=== PATIENT | male | born 1965 | race African-American/Black ===

== ENCOUNTER 2017-05-13 12:21 | Emergency (ER) | payer OTHER ==
[2017-05-13] MEDS ORDERED: SODIUM CHLORIDE 0.9% 500 ML IV STA (12:27)
--- NOTE | 2017-05-13 12:35 | ED ---
General Adult HPI - General Stated complaint: CVA Time Seen by Provider: 05/13/17 12:21 Source: RN notes reviewed - History of Present Illness Initial comments: This is a 51-year-old male who called EMS because about 45 minutes prior to arrival he started having slurred speech and weakness on the right side of his body. Patient has diabetes and high blood pressure. Was difficult to understand the patient because of slurred speech. But he denied any pain at this time. Because the patient was in the CT room no further history was obtained at this time. patient also states he has a pacemaker and is on Plavix. - Related Data Home Medications Medication Instructions Recorded Confirmed Carvedilol [Coreg] 12.5 mg PO BID 05/13/17 05/13/17 Clopidogrel [Plavix] 75 mg PO DAILY 05/13/17 05/13/17 Ergocalciferol (Vitamin D2) 50,000 unit PO Q28D 05/13/17 05/13/17 [Vitamin D2] Furosemide [Lasix] 40 mg PO DAILY 05/13/17 05/13/17 Potassium Chloride [K-Tab ER] 10 meq PO DAILY 05/13/17 05/13/17 sulfaSALAzine [Azulfidine] 1,500 mg PO BID 05/13/17 05/13/17 Allergies Allergy/AdvReac Type Severity Reaction Status Date / Time No Known Allergies Allergy Verified 06/29/16 18:54 Review of Systems ROS Statement: Those systems with pertinent positive or pertinent negative responses have been documented in the HPI. ROS Other: All systems not noted in ROS Statement are negative. Past Medical History Past Medical History: Atrial Fibrillation, Diabetes Mellitus, Hypertension, Osteoarthritis (OA), Rheumatoid Arthritis (RA) Additional Past Medical History / Comment(s): neuropathy History of Any Multi-Drug Resistant Organisms: None Reported Additional Past Surgical History / Comment(s): defibrilator Past Anesthesia/Blood Transfusion Reactions: No Reported Reaction Past Psychological History: Depression Smoking Status: Current every day smoker Past Alcohol Use History: None Reported Past Drug Use History: None Reported - Past Family History Mother History Unknown: Yes Family Medical History: Diabetes Mellitus General Exam - General Exam Comments Initial Comments: GENERAL: Patient is well-developed and well-nourished. Patient is nontoxic and well- hydrated and is in mild distress. ENT: Neck is soft and supple. No significant lymphadenopathy is noted. Oropharynx is clear. Moist mucous membranes. Neck has full range of motion without eliciting any pain. There is no thyroid enlargement and no masses were felt. EYES: The sclera were anicteric and conjunctiva were pink and moist. Patient would not follow commands for extraocular movements was unable to assess his eye movements. After a little while to reattempt his extraocular motion in it appeared that the right eye was unable to come past the midline at the left eye appeared to have full range of motion. PULMONARY: Unlabored respirations. Good breath sounds bilaterally. No audible rales rhonchi or wheezing was noted. CARDIOVASCULAR: There is a regular rate and rhythm without any murmurs gallops or rubs. Femoral pulses are equal bilaterally ABDOMEN: Soft and nontender with normal bowel sounds. SKIN: Skin is clear with no lesions or rashes and otherwise unremarkable. NEUROLOGIC: Patient is alert and oriented x3. patient has complete paralysis of the right arm and leg. Patient's speech is completely slurred MUSCULOSKELETAL: Normal extremities with adequate strength and full range of motion. No lower extremity swelling or edema. No calf tenderness. LYMPHATICS: No significant lymphadenopathy is noted PSYCHIATRIC: Unable to assess at this time Course Vital Signs 05/13/17 05/13/17 05/13/17 12:43 12:48 13:00 Temperature 98.0 F 98.0 F 98.0 F Pulse Rate 108 H 107 H 108 H Respiratory 18 18 18 Rate Blood Pressure 182/113 157/102 152/103 O2 Sat by Pulse 96 98 96 Oximetry 05/13/17 05/13/17 05/13/17 13:10 13:20 13:30 Temperature 98.0 F 98.9 F 98.8 F Pulse Rate 106 H 104 H 104 H Respiratory 18 18 18 Rate Blood Pressure 160/105 154/98 154/98 O2 Sat by Pulse 96 96 96 Oximetry Medical Decision Making - Medical Decision Making EKG shows 107 bpm NH interval 142 QRS is 88 QT interval 370 QTC is 493 per patient's EKG shows inverted T waves in leads V4 V5 and V6 as well as [address] and CTA showed a left middle cerebral artery occlusion. I spoke with the neuro interventional some he wanted the patient to give TPA after he spoke with the patient and he wanted the patient transferred to [facility] emergency department. I spoke with Dr. Gilliam [facility] and she accepted patient patient will be transferred. We gave the bolus of TPA and started a drip in the emergency department. I spoke with the radiologist looked at the CAT scan of the chest specifically to see if there is any dissection in the carotids he did not see any signs of dissection and aortic arch or the carotids. - Lab Data Result diagrams: 05/13/17 12:50 05/13/17 12:50 Lab Results 05/13/17 05/13/17 05/13/17 Range/Units 12:50 12:50 12:50 WBC 5.9 (3.8-10.6) k/uL RBC 4.34 (4.30-5.90) m/uL Hgb 12.2 L (13.0-17.5) gm/dL Hct 38.9 L (39.0-53.0) % MCV 89.5 (80.0-100.0) fL MCH 28.2 (25.0-35.0) pg MCHC 31.5 (31.0-37.0) g/dL RDW 16.4 H (11.5-15.5) % Plt Count 284 (150-450) k/uL PT (9.0-12.0) sec INR (<1.2) APTT (22.0-30.0) sec Sodium 139 (137-145) mmol/L Potassium 3.7 (3.5-5.1) mmol/L Chloride 108 H (98-107) mmol/L Carbon Dioxide 22 (22-30) mmol/L Anion Gap 9 mmol/L BUN 10 (9-20) mg/dL Creatinine 0.83 (0.66-1.25) mg/dL Est GFR (MDRD) Af Amer >60 (>60 ml/min/1.73 sqM) Est GFR (MDRD) Non-Af >60 (>60 ml/min/1.73 sqM) Glucose 132 H (74-99) mg/dL POC Glucose (mg/dL) (75-99) mg/dL POC Glu Electrical Logging Engineer ID Calcium 8.7 (8.4-10.2) mg/dL Total Bilirubin 0.4 (0.2-1.3) mg/dL AST 50 (17-59) U/L ALT 48 (21-72) U/L Alkaline Phosphatase 88 (38-126) U/L Total Creatine Kinase 391 H (55-170) U/L CK-MB (CK-2) 1.7 (0.0-2.4) ng/mL CK-MB (CK-2) Rel Index 0.4 Troponin I 1.020 H* (0.000-0.034) ng/mL Total Protein 6.1 L (6.3-8.2) g/dL Albumin 3.2 L (3.5-5.0) g/dL 05/13/17 05/13/17 Range/Units 12:50 12:58 WBC (3.8-10.6) k/uL RBC (4.30-5.90) m/uL Hgb (13.0-17.5) gm/dL Hct (39.0-53.0) % MCV (80.0-100.0) fL MCH (25.0-35.0) pg MCHC (31.0-37.0) g/dL RDW (11.5-15.5) % Plt Count (150-450) k/uL PT 12.9 H (9.0-12.0) sec INR 1.3 H (<1.2) APTT 21.5 L (22.0-30.0) sec Sodium (137-145) mmol/L Potassium (3.5-5.1) mmol/L Chloride (98-107) mmol/L Carbon Dioxide (22-30) mmol/L Anion Gap mmol/L BUN (9-20) mg/dL Creatinine (0.66-1.25) mg/dL Est GFR (MDRD) Af Amer (>60 ml/min/1.73 sqM) Est GFR (MDRD) Non-Af (>60 ml/min/1.73 sqM) Glucose (74-99) mg/dL POC Glucose (mg/dL) 142 H (75-99) mg/dL POC Glu Electrical Logging Engineer ID Bowling, Sylvia Calcium (8.4-10.2) mg/dL Total Bilirubin (0.2-1.3) mg/dL AST (17-59) U/L ALT (21-72) U/L Alkaline Phosphatase (38-126) U/L Total Creatine Kinase (55-170) U/L CK-MB (CK-2) (0.0-2.4) ng/mL CK-MB (CK-2) Rel Index Troponin I (0.000-0.034) ng/mL Total Protein (6.3-8.2) g/dL Albumin (3.5-5.0) g/dL Critical Care Time Critical Care Time: Yes Total Critical Care Time: 40 Disposition Clinical Impression: Cerebrovascular accident, Received intravenous tissue plasminogen activator ( tPA) in emergency department Disposition: OTHER INSTITUTION NOT DEFINED Referrals: Nonstaff,Physician [Primary Care Provider] - 1-2 days Time of Disposition: 13:21 - Out of Hospital Transfer - Req. Specs Out of Hospital Transfer - Requested Specifics: Other Emergency Center ([facility] )
[2017-05-13 12:54] VITALS: RESP 18
--- NOTE | 2017-05-13 12:55 | CT ---
EXAMINATION TYPE: CT brain wo con DATE OF EXAM: 05/13/2017 COMPARISON: NONE HISTORY: Blurred vision. Possible stroke. Slurred speech CT DLP: 1040 mGycm Automated exposure control for dose reduction was used. FINDINGS: Helical acquisition through the brain. There is no hemorrhage or hydrocephalus. Brain density is normal. Calvarium is intact. Hyperostosis f rom talus interna changes somewhat asymmetric towards the right. No significant inflammatory change w ithin the paranasal sinuses, mild inflammatory change present in the left mastoids. IMPRESSION: NO ACUTE BRAIN ABNORMALITY. CORRELATE FOR LEFT MASTOIDITIS.
[2017-05-13] MEDS ORDERED: tPA (Alteplase) PER PHARMACY 1 EACH MISC MISCELLANE PRN (13:00)
[2017-05-13 13:01] LABS: Glucose,Whole Blood 142 mg/dL (75-99)
[2017-05-13] MEDS ORDERED: ALTEPLASE BOLUS 9 MG in EMPTY SYRINGE 1 SYR IV STA (13:01)
[2017-05-13] MEDS ORDERED: ALTEPLASE 81 MG in EMPTY BAG 1 BAG IV STA (13:01)
[2017-05-13 13:13] LABS: ALT 48 U/L (21-72); AST 50 U/L (17-59); Alkaline Phosphatase 88 U/L (38-126); Anion Gap 9 mmol/L; Blood Urea Nitrogen 10 mg/dL (9-20); Calcium 8.7 mg/dL (8.4-10.2); Carbon Dioxide 22 mmol/L (22-30); Chloride 108 mmol/L (98-107); Glucose 132 mg/dL (74-99); Non-African American GFR(MDRD) >60 (>60 ml/min/1.73 sqM); Potassium 3.7 mmol/L (3.5-5.1); Sodium 139 mmol/L (137-145); Total Bilirubin 0.4 mg/dL (0.2-1.3); Total Protein 6.1 g/dL (6.3-8.2)
[2017-05-13 13:16] LABS: INR 1.3 (<1.2); Prothrombin Time 12.9 sec (9.0-12.0)
--- NOTE | 2017-05-13 13:25 | CT ---
EXAMINATION TYPE: CT angio head neck DATE OF EXAM: 05/13/2017 HISTORY: Slurred speech COMPARISON: NONE CT DLP: 455.5 mGycm. Automated Exposure Control for Dose Reduction was Utilized. TECHNIQUE: CTA scan of the neck is performed with IV Contrast, patient injected with 65 mL of Omnipa que 350, axial images are obtained, coronal and sagittal reformatted images are reviewed. Three-D rec onstructed images are created on an independent workstation and reviewed. FINDINGS: Carotid/Vascular Structures: The transverse aorta, innominate artery, left and right subclavian arter ies, left and right common carotid arteries, left and right vertebral arteries are patent, there is n o evident filling defect or significant stenosis. The middle cerebral artery on the left shows a trun cated appearance however there are extensive suspected collateral arteries reconstituting the more di stal middle cerebral artery on the left. Other: Diffuse scalp skin thickening is present, there is inflammatory change present within the maxi llary sinus, ethmoid air cells. Suspect a right pleural effusion, emphysematous changes are present w ithin the lungs. Mediastinal adenopathy is present. IMPRESSION: There is a truncated appearance of the middle cerebral artery on the left however there i s collateral flow, this may be indicative of a chronic occlusion rather than acute occlusion, correla te. Pleural effusion, mediastinal adenopathy.
[2017-05-13 13:27] LABS: Partial Thromboplastin Time 21.5 sec (22.0-30.0)
[2017-05-13 13:34] LABS: Anisocytosis Slight; Basophils % (A) 1 %; CH 27.7; CHCM 31.3; Eosinophils # (A) 0.2 k/uL (0-0.7); Eosinophils % (A) 3 %; HCT 38.9 % (39.0-53.0); HDW 3.23; HGB 12.2 gm/dL (13.0-17.5); Hypochromasia Moderate; Luc # (Auto) 0.13; Luc % (Auto) 2; Lymphocytes # (A) 1.4 k/uL (1.0-4.8); Lymphocytes % (A) 24 %; MCH 28.2 pg (25.0-35.0); MCHC 31.5 g/dL (31.0-37.0); MCV 89.5 fL (80.0-100.0); Mean Platelet Volume 7.8; Monocytes # (A) 0.6 k/uL (0-1.0); Monocytes % (A) 9 %; Neutrophils # (A) 3.6 k/uL (1.3-7.7); Neutrophils % (A) 61 %; RBC 4.34 m/uL (4.30-5.90); RDW 16.4 % (11.5-15.5); WBC 5.9 k/uL (3.8-10.6); WBC (Perox) 6.23
[2017-05-13 13:36] VITALS: TEMP 98.8
[2017-05-13 13:38] LABS: Creatine Kinase MB 1.7 ng/mL (0.0-2.4)
[2017-05-13 13:43] LABS: Troponin I 1.02 ng/mL (0.000-0.034)
--- NOTE | 2017-05-13 13:43 | XR ---
EXAMINATION TYPE: XR chest 1V portable DATE OF EXAM: 05/13/2017 COMPARISON: 06/29/2016 INDICATION: Pain chest pain shortness of breath TECHNIQUE: Single frontal view of the chest is obtained. FINDINGS: The heart size is enlarged. This is increased in size from prior study as not entirely accounted for by the portable apparatus technique. Mediastinum is likewise prominent. Significant rotation to acco unt for the mediastinum size is not evident.. The pulmonary vasculature is normal. The lungs are clear. Electronic device overlies left chest. Case was discussed with Dr. Altman by Dr. Ortiz at the time of preliminary interpretation. IMPRESSION: 1. Cardiomegaly and prominent mediastinum, an interval change from the comparison of 06/29/2016.
[2017-05-13 13:54] LABS: Polychromasia Present
[2017-05-13 13:57] VITALS: BP 170/90; PULSE 108
== END 2017-05-13 13:56 | disposition other institution (70) ==
LOC: EC 12:21
DX: I63.9 Cerebral infarction, unspecified (principal); I48.91 Unspecified atrial fibrillation; I10 Essential (primary) hypertension; Z79.01 Long term (current) use of anticoagulants; Z79.899 Other long term (current) drug therapy
CPT/HCPCS: 36415; 93005; 80053; 82550; 82553; 84484; 85025; 85610; 85730; 71010; 70496; 70450; 70498; 99291; 96365; J2997; Q9967

== ENCOUNTER 2017-07-27 09:09 | Observation (INO) | payer OTHER ==
--- NOTE | 2017-07-27 10:35 | ED ---
GI Bleed HPI - General Chief complaint: GI Bleed Stated complaint: Dark Stool Time Seen by Provider: 07/27/17 09:15 Source: patient, RN notes reviewed Mode of arrival: ambulatory Limitations: no limitations - History of Present Illness Initial comments: This a 52-year-old male presents emergency Department chief complaint of dark dark brown to black stools. 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 Patient has no abdominal pain or any complaints. Denies nausea, vomiting diarrhea constipation. Patient states it slightly less black today but still is Dr. than usual. Patient denies any dysuria, hematuria. Patient denies fever, chills, headache, dizziness. Patient states that he had a stroke proximal January 2 months ago and has a history of A. fib. - Related Data Home Medications Medication Instructions Recorded Confirmed Carvedilol [Coreg] 12.5 mg PO BID 05/13/17 07/27/17 Furosemide [Lasix] 40 mg PO BID@0800,1400 05/13/17 07/27/17 Potassium Chloride [K-Tab ER] 10 meq PO DAILY 05/13/17 07/27/17 sulfaSALAzine [Azulfidine] 1,500 mg PO DAILY 05/13/17 07/27/17 Aspirin 81 mg PO DAILY 07/27/17 07/27/17 Atorvastatin [Lipitor] 40 mg PO DAILY 07/27/17 07/27/17 Gabapentin [Neurontin] 600 mg PO QID 07/27/17 07/27/17 Insuln Asp Prt/Insulin Aspart 40 unit SQ AC-BID@0800,1800 07/27/17 07/27/17 [NovoLOG MIX 70-30 VIAL] Leflunomide [Arava] 20 mg PO DAILY 07/27/17 07/27/17 Lisinopril 40 mg PO DAILY 07/27/17 07/27/17 Rivaroxaban [Xarelto] 20 mg PO HS 07/27/17 07/27/17 Allergies Allergy/AdvReac Type Severity Reaction Status Date / Time No Known Allergies Allergy Verified 07/27/17 09:36 Review of Systems ROS Statement: Those systems with pertinent positive or pertinent negative responses have been documented in the HPI. ROS Other: All systems not noted in ROS Statement are negative. Past Medical History Past Medical History: Atrial Fibrillation, CVA/TIA, Diabetes Mellitus, Hypertension, Osteoarthritis (OA), Rheumatoid Arthritis (RA) Additional Past Medical History / Comment(s): neuropathy History of Any Multi-Drug Resistant Organisms: None Reported Additional Past Surgical History / Comment(s): defibrilator Past Anesthesia/Blood Transfusion Reactions: No Reported Reaction Past Psychological History: Depression Smoking Status: Current some day smoker Past Alcohol Use History: None Reported Past Drug Use History: None Reported - Past Family History Mother History Unknown: Yes Family Medical History: Diabetes Mellitus General Exam Limitations: no limitations General appearance: alert, in no apparent distress Neck exam: Present: normal inspection, full ROM. Absent: tenderness, meningismus, lymphadenopathy Respiratory exam: Present: normal lung sounds bilaterally. Absent: respiratory distress, wheezes, rales, rhonchi, stridor Cardiovascular Exam: Present: regular rate, normal rhythm, normal heart sounds. Absent: systolic murmur, diastolic murmur, rubs, gallop, clicks GI/Abdominal exam: Present: soft, normal bowel sounds. Absent: distended, tenderness, guarding, rebound, rigid Rectal exam: Present: normal inspection, normal rectal tone, heme (+) stool, black stool Back exam: Absent: CVA tenderness (R), CVA tenderness (L) Course Vital Signs 07/27/17 09:11 Temperature 98.7 F Pulse Rate 87 Respiratory 18 Rate Blood Pressure 133/84 O2 Sat by Pulse 96 Oximetry Medical Decision Making - Lab Data Result diagrams: 07/27/17 10:10 07/27/17 10:10 Lab Results 07/27/17 07/27/17 07/27/17 Range/Units 09:44 10:10 10:10 WBC 5.0 (3.8-10.6) k/uL RBC 4.46 (4.30-5.90) m/uL Hgb 11.8 L (13.0-17.5) gm/dL Hct 38.9 L (39.0-53.0) % MCV 87.2 (80.0-100.0) fL MCH 26.5 (25.0-35.0) pg MCHC 30.4 L (31.0-37.0) g/dL RDW 16.9 H (11.5-15.5) % Plt Count 186 (150-450) k/uL Neutrophils % 47 % Lymphocytes % 36 % Monocytes % 9 % Eosinophils % 6 % Basophils % 1 % Neutrophils # 2.4 (1.3-7.7) k/uL Lymphocytes # 1.8 (1.0-4.8) k/uL Monocytes # 0.4 (0-1.0) k/uL Eosinophils # 0.3 (0-0.7) k/uL Basophils # 0.0 (0-0.2) k/uL Hypochromasia Moderate Anisocytosis Slight PT (9.0-12.0) sec INR (<1.2) APTT (22.0-30.0) sec Sodium 143 (137-145) mmol/L Potassium 3.7 (3.5-5.1) mmol/L Chloride 110 H (98-107) mmol/L Carbon Dioxide 24 (22-30) mmol/L Anion Gap 9 mmol/L BUN 15 (9-20) mg/dL Creatinine 0.82 (0.66-1.25) mg/dL Est GFR (MDRD) Af Amer >60 (>60 ml/min/1.73 sqM) Est GFR (MDRD) Non-Af >60 (>60 ml/min/1.73 sqM) Glucose 117 H (74-99) mg/dL Calcium 9.7 (8.4-10.2) mg/dL Magnesium 1.7 (1.6-2.3) mg/dL Total Bilirubin 0.4 (0.2-1.3) mg/dL AST 25 (17-59) U/L ALT 19 L (21-72) U/L Alkaline Phosphatase 73 (38-126) U/L Total Protein 7.7 (6.3-8.2) g/dL Albumin 4.2 (3.5-5.0) g/dL Urine Color Urine Appearance (Clear) Urine pH (5.0-8.0) Ur Specific Burton (1.001-1.035) Urine Protein (Negative) Urine Glucose (UA) (Negative) Urine Ketones (Negative) Urine Blood (Negative) Urine Nitrite (Negative) Urine Bilirubin (Negative) Urine Urobilinogen (<2.0) mg/dL Ur Leukocyte Esterase (Negative) Urine WBC (0-5) /hpf Ur Squamous Epith Cells (0-4) /hpf Urine Mucus (None) /hpf Stool Occult Blood Positive (Negative) 07/27/17 07/27/17 Range/Units 10:10 10:24 WBC (3.8-10.6) k/uL RBC (4.30-5.90) m/uL Hgb (13.0-17.5) gm/dL Hct (39.0-53.0) % MCV (80.0-100.0) fL MCH (25.0-35.0) pg MCHC (31.0-37.0) g/dL RDW (11.5-15.5) % Plt Count (150-450) k/uL Neutrophils % % Lymphocytes % % Monocytes % % Eosinophils % % Basophils % % Neutrophils # (1.3-7.7) k/uL Lymphocytes # (1.0-4.8) k/uL Monocytes # (0-1.0) k/uL Eosinophils # (0-0.7) k/uL Basophils # (0-0.2) k/uL Hypochromasia Anisocytosis PT 11.2 (9.0-12.0) sec INR 1.1 (<1.2) APTT 23.3 (22.0-30.0) sec Sodium (137-145) mmol/L Potassium (3.5-5.1) mmol/L Chloride (98-107) mmol/L Carbon Dioxide (22-30) mmol/L Anion Gap mmol/L BUN (9-20) mg/dL Creatinine (0.66-1.25) mg/dL Est GFR (MDRD) Af Amer (>60 ml/min/1.73 sqM) Est GFR (MDRD) Non-Af (>60 ml/min/1.73 sqM) Glucose (74-99) mg/dL Calcium (8.4-10.2) mg/dL Magnesium (1.6-2.3) mg/dL Total Bilirubin (0.2-1.3) mg/dL AST (17-59) U/L ALT (21-72) U/L Alkaline Phosphatase (38-126) U/L Total Protein (6.3-8.2) g/dL Albumin (3.5-5.0) g/dL Urine Color Dark Yellow Urine Appearance Cloudy (Clear) Urine pH 6.0 (5.0-8.0) Ur Specific Burton 1.033 (1.001-1.035) Urine Protein 1+ H (Negative) Urine Glucose (UA) Negative (Negative) Urine Ketones Negative (Negative) Urine Blood Negative (Negative) Urine Nitrite Negative (Negative) Urine Bilirubin 1+ H (Negative) Urine Urobilinogen 3.0 (<2.0) mg/dL Ur Leukocyte Esterase Negative (Negative) Urine WBC 2 (0-5) /hpf Ur Squamous Epith Cells 7 H (0-4) /hpf Urine Mucus Moderate H (None) /hpf Stool Occult Blood (Negative) Disposition Clinical Impression: Melena, GI bleed Disposition: ADMITTED IP TO THIS [facility] Condition: Stable Referrals: Nonstaff,Physician [Primary Care Provider] - 1-2 days
[2017-07-27 10:37] LABS: Anisocytosis Slight; Basophils % (A) 1 %; CH 26.5; CHCM 30.5; Eosinophils # (A) 0.3 k/uL (0-0.7); Eosinophils % (A) 6 %; HCT 38.9 % (39.0-53.0); HDW 3.05; HGB 11.8 gm/dL (13.0-17.5); Hypochromasia Moderate; Luc % (Auto) 2; Lymphocytes # (A) 1.8 k/uL (1.0-4.8); Lymphocytes % (A) 36 %; MCH 26.5 pg (25.0-35.0); MCHC 30.4 g/dL (31.0-37.0); MCV 87.2 fL (80.0-100.0); Monocytes # (A) 0.4 k/uL (0-1.0); Monocytes % (A) 9 %; Neutrophils # (A) 2.4 k/uL (1.3-7.7); Neutrophils % (A) 47 %; RBC 4.46 m/uL (4.30-5.90); RDW 16.9 % (11.5-15.5); WBC (Perox) 5.09
[2017-07-27 10:38] LABS: ALT 19 U/L (21-72); AST 25 U/L (17-59); Alkaline Phosphatase 73 U/L (38-126); Anion Gap 9 mmol/L; Blood Urea Nitrogen 15 mg/dL (9-20); Calcium 9.7 mg/dL (8.4-10.2); Carbon Dioxide 24 mmol/L (22-30); Chloride 110 mmol/L (98-107); Glucose 117 mg/dL (74-99); INR 1.1 (<1.2); Magnesium 1.7 mg/dL (1.6-2.3); Non-African American GFR(MDRD) >60 (>60 ml/min/1.73 sqM); Potassium 3.7 mmol/L (3.5-5.1); Sodium 143 mmol/L (137-145); Total Bilirubin 0.4 mg/dL (0.2-1.3); Total Protein 7.7 g/dL (6.3-8.2)
[2017-07-27 10:39] LABS: Partial Thromboplastin Time 23.3 sec (22.0-30.0); Prothrombin Time 11.2 sec (9.0-12.0)
[2017-07-27 10:40] LABS: Appearance,Urine Cloudy (Clear); Bilirubin,Urine 1+ (Negative); Glucose,Urine (UA) Negative (Negative); Ketones,Urine Negative (Negative); Leukocyte Esterase,Urine Negative (Negative); Mucus,Urine Moderate /hpf; Nitrite,Urine Negative (Negative); Particle Count 9086; Protein,Urine 1+ (Negative); Specific Gravity,Urine 1.033 (1.001-1.035); Squamous Epithelial Cell,Urine 7 /hpf (0-4); UA Billing (MACRO vs. MICRO) MICRO; WBC,Urine 2 /hpf (0-5)
[2017-07-27 10:54] LABS: Creatine Kinase 373 U/L (55-170)
[2017-07-27] MEDS ORDERED: PANTOPRAZOLE 40 MG/10 ML VIAL IVP STA (11:01)
[2017-07-27 11:07] LABS: Creatine Kinase MB 1.2 ng/mL (0.0-2.4); Troponin I <0.012 ng/mL (0.000-0.034)
[2017-07-27] MEDS ORDERED: ACETAMINOPHEN TAB 325 MG TAB PO PRN (11:08)
[2017-07-27] MEDS ORDERED: NALOXONE 0.4 MG/ML 1 ML VIAL IV PRN (11:08)
[2017-07-27 12:03] LABS: Glucose,Whole Blood 86 mg/dL (75-99)
[2017-07-27 17:34] LABS: Anisocytosis Slight; Basophils % (A) 1 %; CH 26.6; CHCM 30.3; Eosinophils # (A) 0.3 k/uL (0-0.7); Eosinophils % (A) 6 %; HCT 34.7 % (39.0-53.0); HDW 3.11; HGB 10.5 gm/dL (13.0-17.5); Hypochromasia Marked; Luc # (Auto) 0.16; Luc % (Auto) 3; Lymphocytes # (A) 2.4 k/uL (1.0-4.8); Lymphocytes % (A) 46 %; MCH 26.7 pg (25.0-35.0); MCHC 30.2 g/dL (31.0-37.0); MCV 88.2 fL (80.0-100.0); Mean Platelet Volume 8.7; Monocytes # (A) 0.6 k/uL (0-1.0); Monocytes % (A) 12 %; Neutrophils # (A) 1.7 k/uL (1.3-7.7); Neutrophils % (A) 32 %; RBC 3.94 m/uL (4.30-5.90); RDW 17.2 % (11.5-15.5); WBC 5.2 k/uL (3.8-10.6); WBC (Perox) 5.17
[2017-07-27] MEDS: CARVEDILOL 12.5 MG TAB PO SCH (17:45)
[2017-07-27 17:46] LABS: Glucose,Whole Blood 58 mg/dL (75-99)
[2017-07-27 17:46] LABS: Glucose,Whole Blood 60 mg/dL (75-99)
[2017-07-27] MEDS ORDERED: INSULN ASP PRT/INSULIN ASPART 100 UNIT/ML 10 ML VIAL SQ SCH (18:00)
[2017-07-27 18:03] LABS: Glucose,Whole Blood 76 mg/dL (75-99)
[2017-07-27] MEDS: HYDROcodone/APAP 10-325MG 1 EACH TAB PO PRN (18:42)
[2017-07-27] MEDS: SODIUM CHLORIDE 0.9% 1,000 ML IV SCH (19:45)
[2017-07-27] MEDS: PANTOPRAZOLE 40 MG/10 ML VIAL IV SCH (20:22)
[2017-07-27] MEDS: INSULIN LISPRO (humaLOG) 300 UNIT/3 ML VIAL SQ SCH (21:00)
[2017-07-27 21:13] LABS: Glucose,Whole Blood 99 mg/dL (75-99)
[2017-07-28 00:25] LABS: Anisocytosis Slight; Basophils % (A) 1 %; CH 26.6; CHCM 30.7; Eosinophils # (A) 0.3 k/uL (0-0.7); Eosinophils % (A) 6 %; HCT 33.5 % (39.0-53.0); HDW 2.96; HGB 10.3 gm/dL (13.0-17.5); Hypochromasia Moderate; Luc % (Auto) 2; Lymphocytes % (A) 43 %; MCH 26.9 pg (25.0-35.0); MCHC 30.9 g/dL (31.0-37.0); MCV 87.2 fL (80.0-100.0); Mean Platelet Volume 9.7; Monocytes # (A) 0.7 k/uL (0-1.0); Monocytes % (A) 14 %; Neutrophils # (A) 1.6 k/uL (1.3-7.7); Neutrophils % (A) 34 %; RBC 3.84 m/uL (4.30-5.90); RDW 18.7 % (11.5-15.5); WBC 4.7 k/uL (3.8-10.6); WBC (Perox) 4.96
--- NOTE | 2017-07-28 00:25 | P.HPIM ---
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 Patient was placed on Coumadin since his stroke and has been changed to Xarelto recently. Patient otherwise denied any chest pain or shortness of breath. Patient says that he has an appointment with [place] environmental health technologist [place] [facility] [place]. Patient has no abdominal pain or any complaints. Denies nausea, vomiting diarrhea constipation. Patient states it slightly less black today but still is darker than usual. Patient denies any dysuria, hematuria. Patient denies fever, chills, headache, dizziness. Patient states that he had a stroke proximal January 2 months ago and has a history of A. fib. Review of Systems Constitutional: Patient denies any fever or chills . No generalized weakness or weight loss. Abdomen: Patient denied nausea vomiting and diarrhea and abdominal pain. Dark- colored stools Cardiovascular: Patient denies any chest pain or short of breath no palpitations. Respiratory: patient denied any cough is from production. No shortness of breath Neurologic: Patient denied any numbness or tingling headache. Musculoskeletal: Patient denies any complaints of joint swelling or deformity. Skin: Negative Psychiatric: Negative Endocrine: No heat or cold intolerance. No recent weight gain. Genitourinary: No dysuria or hematuria. All other 14 point ROS negative except the above Past Medical History Past Medical History: Atrial Fibrillation, CVA/TIA, Diabetes Mellitus, Hypertension, Osteoarthritis (OA), Rheumatoid Arthritis (RA) Additional Past Medical History / Comment(s): neuropathy History of Any Multi-Drug Resistant Organisms: None Reported Additional Past Surgical History / Comment(s): defibrilator Past Anesthesia/Blood Transfusion Reactions: No Reported Reaction Past Psychological History: Depression Smoking Status: Current some day smoker Past Alcohol Use History: None Reported Past Drug Use History: None Reported - Past Family History Mother History Unknown: Yes Family Medical History: Diabetes Mellitus Father Additional Family Medical History / Comment(s): Father from a head injury at the age of about 67yrs. Medications and Allergies Home Medications Medication Instructions Recorded Confirmed Type Carvedilol [Coreg] 12.5 mg PO BID 05/13/17 07/27/17 History Furosemide [Lasix] 40 mg PO BID@0800,1400 05/13/17 07/27/17 History Potassium Chloride [K-Tab ER] 10 meq PO DAILY 05/13/17 07/27/17 History sulfaSALAzine [Azulfidine] 1,500 mg PO DAILY 05/13/17 07/27/17 History Aspirin 81 mg PO DAILY 07/27/17 07/27/17 History Atorvastatin [Lipitor] 40 mg PO DAILY 07/27/17 07/27/17 History Gabapentin [Neurontin] 600 mg PO QID 07/27/17 07/27/17 History HYDROcodone/APAP 10-325MG [[place] 1 tab PO Q8H PRN 07/27/17 07/27/17 History 10-325] Insuln Asp Prt/Insulin Aspart 40 unit SQ AC-BID@0800,1800 07/27/17 07/27/17 History [NovoLOG MIX 70-30 VIAL] Leflunomide [Arava] 20 mg PO DAILY 07/27/17 07/27/17 History Lisinopril 40 mg PO DAILY 07/27/17 07/27/17 History Rivaroxaban [Xarelto] 20 mg PO HS 07/27/17 07/27/17 History Allergies Allergy/AdvReac Type Severity Reaction Status Date / Time No Known Allergies Allergy Verified 07/27/17 09:36 Physical Exam Vitals: Vital Signs Temp Pulse Pulse Resp BP BP Pulse Ox 07/27/17 12:09 97.8 F 66 16 120/79 99 07/27/17 11:34 97.2 F L 07/27/17 11:13 64 18 97/54 97 07/27/17 09:11 98.7 F 87 18 133/84 96 Intake and Output 07/26/17 07/27/17 07/27/17 22:59 06:59 14:59 Other: Weight 110.223 kg Patient Weight 07/28/17 06:59 Weight 110.223 kg PHYSICAL EXAMINATION: Patient is lying in the bed comfortably, no acute distress, awake alert and oriented.. HEENT: Normocephalic. Neck is supple. Pupils reactive. Nostrils clear. Oral cavity is moist. Ears reveal no drainage. Neck reveals no JVD, carotid bruits, or thyromegaly. CHEST EXAMINATION: Trachea is central. Symmetrical expansion. Lung diaz clear to auscultation and percussion. CARDIAC: Normal S1, S2 with no gallops. No murmurs ABDOMEN: Soft. Bowel sounds normal. No organomegaly. No abdominal bruits. Extremities: reveal no edema. No clubbing or cyanosis Neurologically awake, alert, oriented x3 with well-coordinated movements. No focal deficits noted Skin: No rash or skin lesions. Psychiatric: Operative. Nonsuicidal Musculoskeletal: No joint swelling or deformity. Normal range of motion. Results CBC & Chem 7: 07/27/17 17:10 07/27/17 10:10 Labs: Abnormal Lab Results - Last 24 Hours (Table) 07/27/17 07/27/17 07/27/17 Range/Units 10:10 10:10 10:10 Hgb 11.8 L (13.0-17.5) gm/dL Hct 38.9 L (39.0-53.0) % MCHC 30.4 L (31.0-37.0) g/dL RDW 16.9 H (11.5-15.5) % Chloride 110 H (98-107) mmol/L Glucose 117 H (74-99) mg/dL ALT 19 L (21-72) U/L Total Creatine Kinase 373 H (55-170) U/L Urine Protein (Negative) Urine Bilirubin (Negative) Ur Squamous Epith Cells (0-4) /hpf Urine Mucus (None) /hpf 07/27/17 Range/Units 10:24 Hgb (13.0-17.5) gm/dL Hct (39.0-53.0) % MCHC (31.0-37.0) g/dL RDW (11.5-15.5) % Chloride (98-107) mmol/L Glucose (74-99) mg/dL ALT (21-72) U/L Total Creatine Kinase (55-170) U/L Urine Protein 1+ H (Negative) Urine Bilirubin 1+ H (Negative) Ur Squamous Epith Cells 7 H (0-4) /hpf Urine Mucus Moderate H (None) /hpf Assessment and Plan Assessment: #1 acute blood loss anemia due to GI bleed. Possible upper GI. hemoglobin 11.8 on admission. Previously was 12.2 #2 history of CVA in April 2017. Was on Coumadin recently changed to Xarelto #3 paroxysmal atrial fibrillation on anticoagulation #4 diabetes type 2 #5 hypertension #6 osteoarthritis #Rheumatoid arthritis Plan: Patient will be continued on IV hydration and monitor H&H every 4. GI has been consulted. We will hold anticoagulation and follow closely. Patient denied any active bleeding at this time. Further recommendations based on the clinical course. Time with Patient: Greater than 30
[2017-07-28 04:37] LABS: Large Platelets Present; Manual Review Performed
[2017-07-28] MEDS: HYDROcodone/APAP 10-325MG 1 EACH TAB PO PRN ×2 (07:29→14:38)
[2017-07-28 07:30] LABS: Glucose,Whole Blood 97 mg/dL (75-99)
[2017-07-28] MEDS: SODIUM CHLORIDE 0.9% 1,000 ML IV SCH ×2 (07:31→20:11)
[2017-07-28] MEDS: INSULIN LISPRO (humaLOG) 300 UNIT/3 ML VIAL SQ SCH ×4 (07:44→21:21)
[2017-07-28 08:08] LABS: Anisocytosis Slight; Basophils % (A) 1 %; CH 26.7; CHCM 30.2; Eosinophils # (A) 0.4 k/uL (0-0.7); Eosinophils % (A) 7 %; HCT 36.8 % (39.0-53.0); HDW 3.07; HGB 10.9 gm/dL (13.0-17.5); Hypochromasia Marked; Luc # (Auto) 0.12; Luc % (Auto) 2; Lymphocytes % (A) 39 %; MCH 26.2 pg (25.0-35.0); MCHC 29.6 g/dL (31.0-37.0); MCV 88.6 fL (80.0-100.0); Mean Platelet Volume 8.3; Monocytes # (A) 0.4 k/uL (0-1.0); Monocytes % (A) 8 %; Neutrophils # (A) 2.2 k/uL (1.3-7.7); Neutrophils % (A) 43 %; RBC 4.16 m/uL (4.30-5.90); RDW 17.1 % (11.5-15.5); WBC 5.2 k/uL (3.8-10.6); WBC (Perox) 5.31
[2017-07-28] MEDS: CARVEDILOL 12.5 MG TAB PO SCH ×2 (08:26→17:30)
[2017-07-28] MEDS: ATORVASTATIN 40 MG TAB PO SCH (08:26)
[2017-07-28] MEDS: PANTOPRAZOLE 40 MG/10 ML VIAL IV SCH ×2 (08:26→20:11)
--- NOTE | 2017-07-28 09:31 | CONS ---
CONSULTATION DATE OF CONSULTATION: 07/28/17 REQUESTING PHYSICIAN: Dr. Larson. REASON FOR CONSULTATION: Acute GI bleed. HISTORY OF PRESENT ILLNESS: The patient is a 52 -year-old pleasant male who was admitted into the emergency room yesterday after having black tarry stools for the last 2 days duration. He denies any associated abdominal pain. He had some nausea but no emesis. 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 His last dose of Xarelto was yesterday morning. For the last 2 days, he has been having some black tarry stools and became somewhat dizzy, came into the emergency room and subsequently admitted to hospital for further evaluation. The patient had an appointment to see his quarryman in 2 days for a pacemaker implantation. This morning, he states that he feels better. He is on a clear liquid diet, tolerating well. He reports no nausea, vomiting. He had no prior history of peptic ulcer disease or recent NSAID use. PAST MEDICAL HISTORY: Significant for atrial fibrillation, diabetes mellitus, hypertension, degenerative joint disease, recent CVA 2 months ago. MEDICATIONS: At home include Coreg, Lasix, potassium, Lipitor, Neurontin, Azulfidine, Donnelly, insulin, lisinopril and Xarelto. PAST SURGICAL HISTORY: AICD. FAMILY HISTORY: Mother has diabetes mellitus. Father had head injury. SOCIAL HISTORY: No smoking. No alcohol use. REVIEW OF SYSTEMS: Cardiopulmonary no chest pain, shortness of breath. Genitourinary: No dysuria or hematuria. Musculoskeletal: Unremarkable. Skin: Unremarkable. Endocrine: Unremarkable. Psychiatric: Unremarkable. Neurological: Unremarkable. ENT vision unremarkable. Constitutional no recent weight loss. No fever, chills, night sweats. PHYSICAL EXAMINATION: He appears comfortable. No apparent distress. VITAL SIGNS: Stable. Blood pressure 110/77, pulse is 70, temperature 97. HEENT examination unremarkable. Conjunctivae pink. Sclerae anicteric. Oral cavity no lesions. Neck: No jugular venous distention or lymph node enlargement. The chest was clear to auscultation. HEART: Regular rate and rhythm. ABDOMEN: Soft, nontender, nondistended. Liver and spleen not palpable. Bowel sounds are positive. No organomegaly. Extremities no pedal edema. Skin no rash. NEUROLOGICAL: Alert and oriented x3. No focal deficits. LABS: From yesterday, WBC 5, hemoglobin 11.8, and platelets are normal. Today, WBC is 5.2, hemoglobin 10.9, and platelets normal. PT/INR is within normal limits. Basic metabolic panel is within normal limits. Stool occult blood positive. IMPRESSION: The patient with recent stroke 2 months ago was maintained on Xarelto on an outpatient basis, was admitted to the hospital because of black tarry stools for the last 2 or 3 days duration. Initial hemoglobin was 11, dropped to 10.5 g/dL. Clinically he is stable. No active bleeding since being in the hospital. No history of peptic ulcer disease or recent NSAID use in the past. RECOMMENDATIONS: 1. Continue to hold the Xarelto. 2. Continue with clear liquid diet. 3. We will proceed with an upper endoscopy tomorrow. I discussed with the patient the risks and complications of procedure and he is agreeable to it. 4. Continue with IV Protonix. 5. We will follow closely during his hospital stay. Thank you for this consultation. MMODL / IJN: [id number] /
[2017-07-28 12:33] LABS: Glucose,Whole Blood 90 mg/dL (75-99)
--- NOTE | 2017-07-28 15:56 | P.PN ---
Subjective Progress Note Date: 07/28/17 progress note being dictated for Dr. 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 Patient was placed on Coumadin since his stroke and has been changed to Xarelto recently. Patient otherwise denied any chest pain or shortness of breath. Patient says that he has an appointment with his bottom finisher at [facility] [place] tomorrow for pacemaker placement. Patient has no abdominal pain or any complaints. Denies nausea, vomiting diarrhea constipation. Patient states it slightly less black today but still is darker than usual. Patient denies any dysuria, hematuria. Patient denies fever, chills, headache, dizziness. Patient states that he had a stroke proximal January 2 months ago and has a history of A. fib. Review of Systems onstitutional: Patient denies any fever or chills . No generalized weakness or weight loss. Abdomen: Patient denied nausea vomiting and diarrhea and abdominal pain. Dark- colored stools Cardiovascular: Patient denies any chest pain or short of breath no palpitations. Respiratory: patient denied any cough is from production. No shortness of breath Neurologic: Patient denied any numbness or tingling headache. Musculoskeletal: Patient denies any complaints of joint swelling or deformity. Skin: Negative Psychiatric: Negative Endocrine: No heat or cold intolerance. No recent weight gain. Genitourinary: No dysuria or hematuria. All other 14 point ROS negative except th 08/07/2017. maintain on IV fluid hydration.No signs or symptoms of bleeding. Denies abdominal pain. No nausea, or vomiting. Evaluated by GI and scheduled for EGD tomorrow.hemoglobin remained stable at 10.9.denies chest pain, palpitations or increasing shortness of breath. Objective - Vital Signs Vital signs: Vital Signs Temp 97.0 F L 07/28/17 14:20 Pulse 80 07/28/17 14:20 Resp 16 07/28/17 14:20 BP 147/76 07/28/17 14:20 Pulse Ox 97 07/28/17 14:20 Intake & Output 07/27/17 07/28/17 07/28/17 18:59 06:59 18:59 Intake Total 200 400 560 Balance 200 400 560 Weight 110.223 kg Intake: Oral 200 400 560 Other: # Voids 0 1 90 - Exam Patient is lying in the bed comfortably, no acute distress, awake alert and oriented.. HEENT: Normocephalic. Neck is supple. Pupils reactive. Nostrils clear. Oral cavity is moist. Ears reveal no drainage. Neck reveals no JVD, carotid bruits, or thyromegaly. CHEST EXAMINATION: Trachea is central. Symmetrical expansion. Lung diaz clear to auscultation and percussion. CARDIAC: Normal S1, S2 with no gallops. No murmurs ABDOMEN: Soft. Bowel sounds normal. No organomegaly. No abdominal bruits. Extremities: reveal no edema. No clubbing or cyanosis Neurologically awake, alert, oriented x3 with well-coordinated movements. No focal deficits noted Skin: No rash or skin lesions. Psychiatric: Operative. Nonsuicidal Musculoskeletal: No joint swelling or deformity. Normal range of motion. - Labs CBC & Chem 7: 07/28/17 07:13 07/27/17 10:10 Labs: Abnormal Lab Results - Last 24 Hours (Table) 07/27/17 07/27/17 07/27/17 Range/Units 17:10 17:11 17:29 RBC 3.94 L (4.30-5.90) m/uL Hgb 10.5 L (13.0-17.5) gm/dL Hct 34.7 L (39.0-53.0) % MCHC 30.2 L (31.0-37.0) g/dL RDW 17.2 H (11.5-15.5) % POC Glucose (mg/dL) 60 L 58 L (75-99) mg/dL 07/27/17 07/28/17 Range/Units 23:30 07:13 RBC 3.84 L 4.16 L (4.30-5.90) m/uL Hgb 10.3 L 10.9 L (13.0-17.5) gm/dL Hct 33.5 L 36.8 L (39.0-53.0) % MCHC 30.9 L 29.6 L (31.0-37.0) g/dL RDW 18.7 H 17.1 H (11.5-15.5) % POC Glucose (mg/dL) (75-99) mg/dL Assessment and Plan Assessment: #1 acute blood loss anemia due to GI bleed. Possible upper GI. hemoglobin 11.8 on admission. Previously was 12.2 #2 history of CVA in April 2017. Was on Coumadin recently changed to Xarelto #3 paroxysmal atrial fibrillation on anticoagulation #4 diabetes type 2 #5 hypertension #6 osteoarthritis #Rheumatoid arthritis plan: Continue on current medication regime, PPI, IV fluid hydration, monitoring and symptomatic treatment. Close monitoring of hemoglobin with repeat labs ordered for a.m. Anticoagulation remains on hold. Scheduled for EGD tomorrow with GI. The impression and plan of care has been dictated as directed. : I performed a history and examination of this patient, discussed the same with the dictator. I agree with the dictator's note ,documented as a scribe. Any additional findings or plans will be noted.
[2017-07-28 17:11] LABS: Glucose,Whole Blood 97 mg/dL (75-99)
[2017-07-28 21:01] LABS: Glucose,Whole Blood 108 mg/dL (75-99)
[2017-07-29 07:20] LABS: Glucose,Whole Blood 91 mg/dL (75-99)
[2017-07-29 07:32] VITALS: BP 140/85; PULSE 77; RESP 16; TEMP 96.9
[2017-07-29] MEDS: INSULIN LISPRO (humaLOG) 300 UNIT/3 ML VIAL SQ SCH ×2 (07:38→11:53)
[2017-07-29] MEDS: CARVEDILOL 12.5 MG TAB PO SCH (07:48)
[2017-07-29] MEDS: ATORVASTATIN 40 MG TAB PO SCH (07:49)
[2017-07-29] MEDS: HYDROcodone/APAP 10-325MG 1 EACH TAB PO PRN (07:49)
[2017-07-29] MEDS: PANTOPRAZOLE 40 MG/10 ML VIAL IV SCH (07:51)
[2017-07-29 08:53] LABS: Anisocytosis Slight; Basophils % (A) 1 %; CH 26.8; CHCM 29.9; Eosinophils # (A) 0.3 k/uL (0-0.7); Eosinophils % (A) 5 %; HCT 37.4 % (39.0-53.0); HDW 3.03; Hypochromasia Marked; Luc # (Auto) 0.12; Luc % (Auto) 2; Lymphocytes # (A) 2.1 k/uL (1.0-4.8); Lymphocytes % (A) 35 %; MCH 26.5 pg (25.0-35.0); MCHC 29.4 g/dL (31.0-37.0); MCV 90.2 fL (80.0-100.0); Mean Platelet Volume 8.8; Monocytes # (A) 0.6 k/uL (0-1.0); Monocytes % (A) 11 %; Neutrophils # (A) 2.9 k/uL (1.3-7.7); Neutrophils % (A) 48 %; RBC 4.15 m/uL (4.30-5.90); RDW 17.1 % (11.5-15.5)
[2017-07-29 09:10] LABS: Anion Gap 10 mmol/L; Blood Urea Nitrogen 12 mg/dL (9-20); Calcium 8.9 mg/dL (8.4-10.2); Carbon Dioxide 19 mmol/L (22-30); Chloride 112 mmol/L (98-107); Glucose 88 mg/dL (74-99); Non-African American GFR(MDRD) >60 (>60 ml/min/1.73 sqM); Potassium 3.9 mmol/L (3.5-5.1); Sodium 141 mmol/L (137-145)
[2017-07-29] MEDS ORDERED: PROPOFOL 10 MG/ML 20 ML VIAL IV ONE (09:26)
[2017-07-29] MEDS ORDERED: LIDOCAINE 1% INJ 10MG/ML (20 ML MDV) ONE (09:26)
[2017-07-29] MEDS ORDERED: IV FLUID CONTINUATION 900 ML IV ONE (09:27)
--- NOTE | 2017-07-29 09:38 | P.PCN ---
Date of Procedure: 07/29/17 Procedure(s) Performed: BRIEF HISTORY: Patient is a 52-year-old, pleasant, -[place] male admitted to the hospital with black tarry stools for the last 2 days' duration. His hemoglobin was 11 g/dL. Has been on Xarelto which has been on hold for the last 2 days. He scheduled for an upper endoscopy to evaluate for upper GI source of bleeding. PROCEDURE PERFORMED: Esophagogastroduodenoscopy and biopsy. PREOPERATIVE DIAGNOSIS: Black tarry stools of 2 days' duration. IV sedation per anesthesia. PROCEDURE: After informed consent was obtained, the patient was brought into the endoscopy unit. IV sedation was administered by Anesthesia under continuous monitoring. Initially the Olympus GIF-140 video endoscope was inserted into the mouth. Esophagus intubated without any difficulty. It was gradually advanced into the stomach and duodenum and carefully examined. The bulb and the second part of the duodenum appeared normal. There was patchy areas of erythema noted in the bulb of the duodenum consistent with mild duodenitis. The scope at this time was withdrawn to the stomach, adequately insufflated with air, and upon careful examination, mucosa of the antrum had mild gastritis and biopsies were done from this area. The, body, cardia and the fundus appeared normal. The scope was then withdrawn into the esophagus. The GE junction was located at 39 cm from the incisors. The esophagus appeared normal. There were no erosions or ulcerations seen and the patient tolerated the procedure well. IMPRESSION: 1. Mild antral gastritis and duodenitis. 2. No active upper GI bleed seen. RECOMMENDATIONS: The findings of this examination were discussed with the patient. Sinse there is no active GI bleed noted, he can have and anticoagulation resumed and diet will be advanced as tolerated
[2017-07-29 11:55] LABS: Glucose,Whole Blood 118 mg/dL (75-99)
[2017-07-29] MEDS ORDERED: RIVAROXABAN 10 MG TAB PO SCH (12:15)
--- NOTE | 2017-07-30 01:27 | P.DS ---
Providers Date of admission: 07/27/17 11:04 Expected date of discharge: 07/29/17 Attending physician: Tammy Arenas Consults: 07/27/17 14:39 Consult Physician Routine Consulting Provider: Ingrid Mcnulty Consult Reason/Comments: GIB, black stool Do you want consulting provider notified?: Yes Primary care physician: Physician Nonstaff Hospital Course: Discharge diagnosis #1 acute blood loss anemia due to GI bleed. Possible upper GI. hemoglobin 11.8- -11.0 today. Previously was 12.2 #2 history of CVA in April 2017. 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 Patient was placed on Coumadin since his stroke and has been changed to Xarelto recently. Patient otherwise denied any chest pain or shortness of breath. Patient says that he has an appointment with his stock saw operator at [facility] tomorrow for pacemaker placement. Patient has no abdominal pain or any complaints. Denies nausea, vomiting diarrhea constipation. Patient states it slightly less black today but still is darker than usual. Patient denies any dysuria, hematuria. Patient denies fever, chills, headache, dizziness. Patient states that he had a stroke proximal January 2 months ago and has a history of A. fib. Patient was continued on current medication regime, PPI, IV fluid hydration, monitoring and symptomatic treatment. Anticoagulation remains on hold. Patient had EKG done today showed mild antral gastritis and duodenitis. No evidence of GI bleed. Hemoglobin stable. Patient was started back on anti- coagulation. Patient will be continued on PPI. And recommended to follow-up in the GI clinic in next 2 weeks. Patient was advised to stay in the hospital overnight for repeat hemoglobin the patient wants to be discharged home today. Discharge physical examination was done. Total time taken greater than 35 minutes including 18 minutes for counseling and coordination of care. Patient Condition at Discharge: Stable Plan - Discharge Summary Discharge Rx Participant: No New Discharge Prescriptions: New Pantoprazole Sodium [Protonix] 40 mg PO -ONOFREKT #30 tablet.dr Continue sulfaSALAzine [Azulfidine] 1,500 mg PO DAILY Potassium Chloride [K-Tab ER] 10 meq PO DAILY Furosemide [Lasix] 40 mg PO BID@0800,1400 Carvedilol [Coreg] 12.5 mg PO BID Rivaroxaban [Xarelto] 20 mg PO HS Insuln Asp Prt/Insulin Aspart [NovoLOG MIX 70-30 VIAL] 40 unit SQ AC-BID@0800 ,1800 Leflunomide [Arava] 20 mg PO DAILY Gabapentin [Neurontin] 600 mg PO QID Lisinopril 40 mg PO DAILY Atorvastatin [Lipitor] 40 mg PO DAILY Aspirin 81 mg PO DAILY HYDROcodone/APAP 10-325MG [[place] 10-325] 1 tab PO Q8H PRN PRN Reason: Pain Discharge Medication List Carvedilol [Coreg] 12.5 mg PO BID 05/13/17 [History] Furosemide [Lasix] 40 mg PO BID@0800,1400 05/13/17 [History] Potassium Chloride [K-Tab ER] 10 meq PO DAILY 05/13/17 [History] sulfaSALAzine [Azulfidine] 1,500 mg PO DAILY 05/13/17 [History] Aspirin 81 mg PO DAILY 07/27/17 [History] Atorvastatin [Lipitor] 40 mg PO DAILY 07/27/17 [History] Gabapentin [Neurontin] 600 mg PO QID 07/27/17 [History] HYDROcodone/APAP 10-325MG [[place] 10-325] 1 tab PO Q8H PRN 07/27/17 [History] Insuln Asp Prt/Insulin Aspart [NovoLOG MIX 70-30 VIAL] 40 unit SQ AC-BID@0800, 1800 07/27/17 [History] Leflunomide [Arava] 20 mg PO DAILY 07/27/17 [History] Lisinopril 40 mg PO DAILY 07/27/17 [History] Rivaroxaban [Xarelto] 20 mg PO HS 07/27/17 [History] Pantoprazole Sodium [Protonix] 40 mg PO AC-BRKFST #30 tablet. 07/30/17 [Rx] Follow up Appointment(s)/Referral(s): Nonstaff,Physician [Primary Care Provider] - 1-2 days (address: [address] [place] [id number] [address] Baljinder Mahajan MD at [facility] phone number: [phone] Office closed please call Sunday to make follow up appointment. ) Ambulatory/Diagnostic Orders: Complete Blood Count w/diff [LAB.AMB] Time Frame: 2 Days, Facility: [facility], Location: Administrative pooling operator Patient Instructions/Handouts: How to Stop Smoking (DC), Gastrointestinal Bleeding (DC), Type 2 Diabetes in Adults (DC) Activity/Diet/Wound Care/Special Instructions: Okay to resume Xaralto this evening. Monitor signs and symptoms of bleeding and contact physician if any bleeding. Discharge Disposition: HOME SELF-CARE
== END 2017-07-29 14:02 | disposition home or self-care (01) ==
LOC: EC 09:09 → 4MS4W 11:04 → INTOOBSV 11:04 → 4MS4W 11:28
PROVIDERS: ADMIT Hospitalist; ATTEND Hospitalist
PROC: 0DB68ZX Excision of Stomach, Via Natural or Artificial Opening Endoscopic, Diagnostic (ICD-10-PCS; principal; 2017-07-29 09:30)
DX: K92.2 Gastrointestinal hemorrhage, unspecified (principal); E11.42 Type 2 diabetes mellitus with diabetic polyneuropathy; I48.0 Paroxysmal atrial fibrillation; I10 Essential (primary) hypertension; F32.9 Major depressive disorder, single episode, unspecified; D62 Acute posthemorrhagic anemia; F17.200 Nicotine dependence, unspecified, uncomplicated; K29.60 Other gastritis without bleeding; K29.80 Duodenitis without bleeding; M06.9 Rheumatoid arthritis, unspecified; I25.10 Atherosclerotic heart disease of native coronary artery without angina pectoris; M19.90 Unspecified osteoarthritis, unspecified site; Z79.01 Long term (current) use of anticoagulants; Z79.4 Long term (current) use of insulin; Z79.82 Long term (current) use of aspirin; Z79.899 Other long term (current) drug therapy; Z86.73 Personal history of transient ischemic attack (TIA), and cerebral infarction without residual deficits; Z95.5 Presence of coronary angioplasty implant and graft; Z95.810 Presence of automatic (implantable) cardiac defibrillator
CPT/HCPCS: 96376 ×3; 96361 ×2; 96374; 99285; 36415; 88305; 80053; 80048; 82550; 82553; 83735; 84484; 85025 ×3; 85610; 85730; 82272; 81001; 88342; 83036; 43239; G0378 ×3; J2001; J2704; C9113 ×3

== ENCOUNTER → 2017-08-02 | Outpatient (CLI) | payer OTHER ==
--- NOTE | 2017-08-02 10:25 | US ---
EXAMINATION TYPE: US carotid duplex BILAT DATE OF EXAM: 08/02/2017 COMPARISON: CTA neck May 13, 2017 CLINICAL HISTORY: I63.9 CVA. Rt side stroke 2 months ago EXAM MEASUREMENTS: RIGHT: Peak Systolic Velocity (PSV) cm/sec ----- Right CCA: 56.4 ----- Right ICA: 82.8 ----- Right ECA: 81.7 ICA/CCA ratio: 1.5 RIGHT: End Diastole cm/sec ----- Right CCA: 18.8 ----- Right ICA: 48.4 ----- Right ECA: 13.6 LEFT: Peak Systolic Velocity (PSV) cm/sec ----- Left CCA: 42.4 ----- Left ICA: 81.5 ----- Left ECA: 54.6 ICA/CCA ratio: 1.9 LEFT: End Diastole cm/sec ----- Left CCA: 14.1 ----- Left ICA: 45.8 ----- Left ECA: 15.4 VERTEBRALS (direction of flow): Right Vertebral: Antegrade Left Vertebral: Antegrade Rhythm: Normal franny thyroid nodules incidental finding Grayscale images show mild to minimal eccentric plaque at bilateral carotid bulbs. Velocity measureme nts and ratios and visualized portion of both internal carotid arteries is within normal limits. Norm al cephalad directed flow is seen in both vertebral arteries. Note is made of heterogeneous appearing thyroid on images saved. IMPRESSION: Findings correlate with prior CT of the neck. No hemodynamically significant stenosis is seen in either internal carotid artery. Criteria for Assigning % of Stenosis / Diameter reduction (Estimation based on the indirect measurements of the internal carotid artery velocities (ICA PSV). 1. Normal (no stenosis)=ICA PSV < 125 cm/s: ratio < 2.0: ICA EDV<40 cm/s. 2. Less than 50% stenosis=ICA PSV < 125 cm/s: ratio < 2.0: ICA EDV<40 cm/s. 3. 50 to 69% stenosis=ICA PSV of 125 to 230 cm/s: ration 2.0 ? 4.0: ICA EDV 40-100 cm/s. 4. Greater than 70% stenosis to near occlusion= ICA PSV > 230 cm/s: ratio > 4.0: ICA EDV > 100 cm/s. 5. Near occlusion= ICA PSV velocities may be low or undetectable: variable ratio and ICA EDV. 6. Total occlusion=unable to detect flow.
== END | disposition home or self-care (01) ==
LOC: RADUSWWP 08:03
PROVIDERS: ATTEND Psychiatry & Neurology Neurology
DX: I63.9 Cerebral infarction, unspecified (principal)
CPT/HCPCS: 93880

== ENCOUNTER → 2017-08-21 | Outpatient (CLI) | payer OTHER ==
--- NOTE | 2017-08-21 20:21 | CT ---
EXAMINATION TYPE: CT brain wo con DATE OF EXAM: 08/21/2017 COMPARISON: 05/13/2017 HISTORY: Patient poor historian. Follow up for prior stroke. CT DLP: 1052 mGycm Automated exposure control for dose reduction was used. FINDINGS: Ventricles have normal size. There is no mass effect nor midline shift. There is no sign of intracran ial hemorrhage. There is minimal 1 cm hypodense area in the genu of the left internal capsule. The ca lvarium is intact. IMPRESSION: SMALL LACUNAR INFARCT IN THE LEFT INTERNAL CAPSULE IS NEW COMPARED TO OLD EXAM.
== END | disposition home or self-care (01) ==
LOC: RADCTMAIN 19:23
PROVIDERS: ATTEND Psychiatry & Neurology Neurology
DX: I63.9 Cerebral infarction, unspecified (principal)
CPT/HCPCS: 70450

== ENCOUNTER 2018-03-28 06:43 | Day surgery (SDC) | payer OTHER ==
[2018-03-25 09:33] VITALS: BMI 40.4
[~2018-03-28 06:43] MED LIST: DEXAMETHASONE SOD PHOSPHATE 10 MG/ML 1 ML VIAL IV ONE; HYDROmorphone 0.5 MG/0.5 ML SYRINGE IVP PRN; LACTATED RINGERS 1,000 ML IV SCH; ONDANSETRON 4 MG/2 ML VIAL IVP ONE
[2018-03-28 07:09] VITALS: RESP 18; TEMP 97.6
[2018-03-28] MEDS ORDERED: LACTATED RINGERS 1,000 ML IV ONE ×2 (07:22)
[2018-03-28 07:25] LABS: Glucose,Whole Blood 116 mg/dL (75-99)
[2018-03-28] MEDS ORDERED: PROPOFOL 10 MG/ML 20 ML VIAL IV ONE (07:45)
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
--- NOTE | 2018-03-28 08:07 | P.OP ---
Date of Procedure: 03/28/18 Preoperative Diagnosis: GI bleed Postoperative Diagnosis: External hemorrhoids Left colon polyp Right colon polyp Procedure(s) Performed: Colonoscopy Anesthesia: MAC Surgeon: Morris Goyal Pathology: other (Right colon polyp, left colon polyp) Condition: stable Disposition: PACU Description of Procedure: The patient's placed on the endoscopy table in the lateral position. He received IV sedation. Digital rectal exam was performed which revealed a few external hemorrhoids. Flexible colonoscope was then placed patient anus passed throughout the entire colon. The ileocecal valve was visualized. The cecum, appeared normal. In the right colon there was a small sessile polyp was removed with the cold forcep. Further in the distal right colon there was another polyp seen this removed with the snare. The transverse colon appeared normal the descending colon was examined there was a small polyp seen this removed with a cold forcep. The; appeared normal. Scope withdrawn the rectum and this appeared normal. Scope was retroflexed and there were internal and external hemorrhoids. Scope was then withdrawn for patient.
[2018-03-28 08:17] LABS: Glucose,Whole Blood 105 mg/dL (75-99)
[2018-03-28 08:41] VITALS: BP 119/80; PULSE 76
== END 2018-03-28 09:13 | disposition home or self-care (01) ==
LOC: ORWHC2ENDO 06:43
PROVIDERS: ATTEND Surgery
DX: D12.2 Benign neoplasm of ascending colon (principal); D12.3 Benign neoplasm of transverse colon; K64.8 Other hemorrhoids; K64.4 Residual hemorrhoidal skin tags; I48.91 Unspecified atrial fibrillation; I11.0 Hypertensive heart disease with heart failure; I50.9 Heart failure, unspecified; E11.40 Type 2 diabetes mellitus with diabetic neuropathy, unspecified; E78.5 Hyperlipidemia, unspecified; M06.9 Rheumatoid arthritis, unspecified; G47.30 Sleep apnea, unspecified; M19.90 Unspecified osteoarthritis, unspecified site; Z86.73 Personal history of transient ischemic attack (TIA), and cerebral infarction without residual deficits; Z95.5 Presence of coronary angioplasty implant and graft; Z95.810 Presence of automatic (implantable) cardiac defibrillator; Z79.01 Long term (current) use of anticoagulants; Z79.82 Long term (current) use of aspirin; Z79.4 Long term (current) use of insulin; Z79.899 Other long term (current) drug therapy; Z79.1 Long term (current) use of non-steroidal anti-inflammatories (NSAID); Z87.891 Personal history of nicotine dependence; Z99.89 Dependence on other enabling machines and devices
CPT/HCPCS: 88305; 45380; 45385; J2704

== ENCOUNTER → 2018-06-04 | Outpatient (CLI) | payer OTHER ==
--- NOTE | 2018-06-04 09:50 | CT ---
EXAMINATION TYPE: CT cervical spine wo con DATE OF EXAM: 06/04/2018 COMPARISON: NONE HISTORY: Neck pain with radiation to the right shoulder. CT DLP: 412.5 mGycm. Automated Exposure Control for Dose Reduction was Utilized. TECHNIQUE: CT scan of the cervical spine is obtained without contrast, axial images are obtained, sa gittal and coronal reformatted images are also reviewed. FINDINGS: Cervical spine is visualized in its entirety from C1 through upper thoracic levels, demonst rates straightened alignment without evidence of acute fracture or dislocation. Prevertebral soft ti ssue appears within normal limits. The C1-C2 articulation is within normal limits on the coronal ronald ges. Vertebral body heights are maintained. There is mild disc space narrowing with mild to moderate anter ior spurring C4-C5 level, posterior spur disc complexes effacing anterior thecal sac at this level on sagittal and axial images. There is mild to moderate disc space narrowing and spurring at C5-C6 level with left paracentral spur disc complex effacing anterior thecal sac on axial image 56. There is moderate disc space narrowing and spurring at C6-C7 level with posterior spur disc complex e ffacing anterior thecal sac. There are multilevel uncovertebral facet degenerative changes with moderate to advanced left-sided ne ural foraminal narrowing C4-C5 level on axial image 48 and moderate to advanced left-sided neural for aminal narrowing at C5-C6 level on axial image 56, there is moderate left-sided neural foraminal narr owing C6-C7 level due to marginal spurring near axial image 63. Lung apices are clear. There is partial visualization of cardiac pacemaker lead. Visualized portion o f thyroid gland is felt within normal limits there is asymmetric filling of the left piriform sinus w ithout obvious mass. There is mild calcified plaque at left carotid bulb. IMPRESSION: There is straightening of cervical spine with multilevel degenerative changes most promin ent at C4-C5 through C6-C7 levels as detailed above.
== END | disposition home or self-care (01) ==
LOC: RADCTMAIN 07:29
PROVIDERS: ATTEND Psychiatry & Neurology Neurology
DX: M47.812 Spondylosis without myelopathy or radiculopathy, cervical region (principal)
CPT/HCPCS: 72125

== ENCOUNTER → 2018-11-04 | Day surgery (SDC) | payer OTHER ==
[2018-10-30 17:32] VITALS: BMI 34.9
[~2018-11-04] MED LIST changes: -DEXAMETHASONE SOD PHOSPHATE 10 MG/ML 1 ML VIAL IV ONE; -HYDROmorphone 0.5 MG/0.5 ML SYRINGE IVP PRN; -LACTATED RINGERS 1,000 ML IV SCH; -ONDANSETRON 4 MG/2 ML VIAL IVP ONE; +SIMETHICONE 40 MG/0.6 ML DROPS 2,000 MG/30 ML BOTTLE PO ONE
== END ==
LOC: ORWHC2ENDO 06:48
PROVIDERS: ATTEND Internal Medicine
DX: D50.0 Iron deficiency anemia secondary to blood loss (chronic) (principal)
CPT/HCPCS: 91110

== ENCOUNTER → 2018-11-19 | Outpatient (CLI) | payer OTHER ==
--- NOTE | 2018-11-19 13:45 | CT ---
EXAMINATION TYPE: CT brain wo con DATE OF EXAM: 11/19/2018 COMPARISON: 08/21/2017 and 05/13/2017 HISTORY: 53-year-old male cerebral infarction, unspecified. Left ear pain, left eye vision changes TECHNIQUE: Examination was done in axial plane without intravenous contrast. Coronal and sagittal r econstructions performed. CT DLP: 1012.6 mGycm Automated exposure control for dose reduction was used. FINDINGS: There is no evidence of acute intracranial hemorrhage, acute ischemic changes, mass, mass-effect, or extra-axial fluid collection. There is no effacement of cerebral sulci or basal subarachnoid cister ns. There is no hydrocephalus. There is no midline shift. Siu-white matter distinction is preserv ed. Scattered dural based calcifications are unchanged, probably dystrophic in nature. Old deep white mat ter infarcts left subinsular region and left morgan radiata noted to be new from 05/13/2017. Small 4 mm eccentric calcification along the posterior left optic nerve is unchanged from 05/13/2017 t he globes appear symmetrical and intact. Lobulated mucosal thickening at the bilateral maxillary antra. Mastoid air cells are opacified on the left. IMPRESSION: 1. No acute intracranial abnormality seen. Now chronic left subinsular and deep white matter infarcts on the left. Noted to be new from 05/13/2017. 2. Scattered dural based calcifications probably dystrophic but could also represent small meningioma s. 3. A small 4 mm calcified focus along the posterior left optic nerve remains unchanged and is of ques tionable clinical significance. It could be degenerative or idiopathic. A small meningioma is also a possibility. 4. Opacification of most of the left mastoid air cells. Correlate for any mastoid pain to exclude mas toiditis.
== END | disposition home or self-care (01) ==
LOC: RADCTMAIN 12:55
PROVIDERS: ATTEND Psychiatry & Neurology Neurology
DX: I63.89 Other cerebral infarction (principal); G93.89 Other specified disorders of brain
CPT/HCPCS: 70450

== ENCOUNTER 2019-04-20 04:26 | Inpatient (IN) | payer OTHER ==
[2019-04-20] MEDS ORDERED: ALBUTEROL NEBULIZED 2.5 MG/3 ML INHALATION STA (04:29)
[2019-04-20] MEDS ORDERED: IPRATROPIUM 0.5 MG/2.5 ML NEBU INHALATION STA (04:29)
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
[2019-04-20 04:53] LABS: Anisocytosis Slight; Basophils # (A) 0.1 k/uL (0-0.2); Basophils % (A) 1 %; Eosinophils # (A) 0.6 k/uL (0-0.7); Eosinophils % (A) 8 %; HCT 48.5 % (39.0-53.0); HGB 15.6 gm/dL (13.0-17.5); Lymphocytes # (A) 2.8 k/uL (1.0-4.8); Lymphocytes % (A) 36 %; MCH 27.4 pg (25.0-35.0); MCHC 32.1 g/dL (31.0-37.0); MCV 85.3 fL (80.0-100.0); Mean Platelet Volume 9.9; Monocytes # (A) 0.9 k/uL (0-1.0); Monocytes % (A) 11 %; Neutrophils # (A) 3.2 k/uL (1.3-7.7); Neutrophils % (A) 41 %; Platelet Count 233 k/uL (150-450); RBC 5.68 m/uL (4.30-5.90); RDW 17.1 % (11.5-15.5); WBC 7.8 k/uL (3.8-10.6)
[2019-04-20 05:01] LABS: ALT <6 U/L (21-72); AST 36 U/L (17-59); African American GFR (CKD) >90 (>60 ml/min/1.73 sqM); Albumin 4.1 g/dL (3.5-5.0); Alkaline Phosphatase 96 U/L (38-126); Anion Gap 11 mmol/L; Blood Urea Nitrogen 11 mg/dL (9-20); Calcium 9.1 mg/dL (8.4-10.2); Carbon Dioxide 21 mmol/L (22-30); Chloride 109 mmol/L (98-107); Glucose 119 mg/dL (74-99); Magnesium 1.8 mg/dL (1.6-2.3); Non-African American GFR(CKD) >90 (>60 ml/min/1.73 sqM); Partial Thromboplastin Time 24.4 sec (22.0-30.0); Prothrombin Time 10.4 sec (9.0-12.0); Sodium 141 mmol/L (137-145); Total Protein 7.8 g/dL (6.3-8.2)
--- NOTE | 2019-04-20 05:14 | XR ---
EXAM: XR Chest, 1 View CLINICAL HISTORY: sob TECHNIQUE: Frontal view of the chest. COMPARISON: 05/13/2017. FINDINGS: Lungs: See below. Pleural space: No definitive pleural effusions on this single frontal portable view of the chest. No pneumothorax. Heart: Cardiomegaly with findings suggestive of mild/moderate pulmonary vascular congestion/pulmonary edema, mild improvement since prior study. Mediastinum: Unremarkable. Bones/joints: Unremarkable. Tubes, lines and devices: Left-sided chest wall pacemaker is seen with lead tip overlying the right ventricle. IMPRESSION: Cardiomegaly with findings suggestive of mild/moderate pulmonary vascular congestion/pulmonary edema, mild improvement since prior study. Correlate clinically for superimposed infection.
[2019-04-20] MEDS ORDERED: ENALAPRILAT 1.25 MG/ML 1 ML VIAL IVP STA (05:50)
[2019-04-20] MEDS: FUROSEMIDE 10 MG/ML 4 ML VIAL IV SCH ×3 (06:19→21:43)
[2019-04-20] MEDS ORDERED: MORPHINE SULFATE 4 MG/ML SYRINGE IVP STA (06:28)
[2019-04-20] MEDS ORDERED: MORPHINE SULFATE 4 MG/ML SYRINGE IVP PRN (06:28)
[2019-04-20 06:30] LABS: Potassium 4.8 mmol/L (3.5-5.1)
[2019-04-20] MEDS ORDERED: HEPARIN SODIUM,PORCINE 5,000 UNIT/ML 1 ML VIAL IV ONE (06:43)
[2019-04-20] MEDS ORDERED: HEPARIN SODIUM,PORCINE 5,000 UNIT/ML 1 ML VIAL IV PRN (06:43)
[2019-04-20] MEDS ORDERED: hydrALAZINE HCL 20 MG/ML 1 ML VIAL IVP STA (06:44)
[2019-04-20] MEDS ORDERED: NITROGLYCERIN-D5W PMX 50 MG in DEXTROSE/WATER 1 250ML.BAG IV SCH (06:45)
[2019-04-20] MEDS: HEPARIN SOD,PORK IN 0.45% NACL 25,000 UNIT in 0.45% NACL 1 250ML.BAG IV SCH (06:57)
[2019-04-20] MEDS: ENALAPRILAT 1.25 MG/ML 1 ML VIAL IVP SCH ×2 (07:13→12:05)
[2019-04-20] MEDS: IPRATROPIUM-ALBUTEROL 3 ML NEB INHALATION SCH ×4 (07:39→20:01)
[2019-04-20] MEDS ORDERED: ACETAMINOPHEN TAB 325 MG TAB PO PRN (08:54)
[2019-04-20] MEDS ORDERED: ENOXAPARIN 40 MG/0.4 ML SYRINGE SQ SCH (09:00)
[2019-04-20 11:48] LABS: Glucose,Whole Blood 109 mg/dL (75-99)
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
[2019-04-20] MEDS: LISINOPRIL 5 MG TAB PO SCH (12:39)
[2019-04-20] MEDS: GABAPENTIN 400 MG CAP PO SCH ×3 (14:45→21:42)
[2019-04-20] MEDS: HYDROcodone/APAP 10-325MG 1 EACH TAB PO PRN ×2 (14:54→22:59)
[2019-04-20 15:03] VITALS: BMI 38.1
[2019-04-20 17:02] LABS: Glucose,Whole Blood 107 mg/dL (75-99)
[2019-04-20] MEDS: CARVEDILOL 3.125 MG TAB PO SCH (17:32)
[2019-04-20] MEDS: INSULN ASP PRT/INSULIN ASPART 100 UNIT/ML 10 ML VIAL SQ SCH (17:32)
--- NOTE | 2019-04-20 19:15 | HP ---
HISTORY AND PHYSICAL CHIEF COMPLAINT: Shortness of breath for several days. HISTORY OF PRESENT ILLNESS: This is the first admission to me in this hospital for this 53-year-old male. He started to have progressively more shortness of breath and he came to the emergency room where he was found to be in congestive heart failure. He is a poor historian. At the present time he is nauseated and uncooperative. REVIEW OF SYSTEMS: He denies focal neurologic problems, difficulty with vision or hearing, chest pain, cough, hemoptysis, sputum production, murmurs, rheumatic fever, abdominal pain, diarrhea, melena, hematochezia, etc. He denies renal failure, dysuria, frequency, hematuria, etc. Past medical history, family history and personal and social histories are significant in that the medications that he takes which are in his MAR. He is not allergic to any medication. Laboratory studies revealed an elevated BNP consistent with his heart failure. He smokes a pack of cigarettes a day. PHYSICAL EXAM: Blood pressure is 159/133 with a pulse of 90, respirations of 36 and he is afebrile. In general he appeared to be acutely ill. Skin was dry. Head, ears, eyes, nose, mouth and throat were otherwise unremarkable. The chest demonstrated poor breath sounds with rales at both bases and scattered rhonchi. Cardiac exam demonstrated tachycardia with an S4. The abdomen was soft and nontender. Extremities are normal. Neurologically he is intact. IMPRESSION: 1. Acute congestive heart failure. 2. Probable chronic congestive heart failure. 3. Elevated troponin. PLAN: 1. Bed rest. 2. IV fluids. 3. Diuresis. 4. Echocardiogram. 5. Cardiology consult. MMODL / IJN: [id number] /
[2019-04-20] MEDS ORDERED: IPRATROPIUM-ALBUTEROL 3 ML NEB INHALATION PRN (20:26)
[2019-04-20 20:45] LABS: Glucose,Whole Blood 97 mg/dL (75-99)
[2019-04-20] MEDS: ATORVASTATIN 80 MG TAB PO SCH (21:42)
[2019-04-21] MEDS: HEPARIN SOD,PORK IN 0.45% NACL 25,000 UNIT in 0.45% NACL 1 250ML.BAG IV SCH (03:07)
[2019-04-21] MEDS: IPRATROPIUM-ALBUTEROL 3 ML NEB INHALATION SCH ×4 (06:59→19:59)
[2019-04-21] MEDS: PANTOPRAZOLE 40 MG TABLET PO SCH (07:07)
[2019-04-21] MEDS: FUROSEMIDE 10 MG/ML 4 ML VIAL IV SCH ×3 (07:07→19:54)
[2019-04-21 07:08] LABS: Glucose,Whole Blood 94 mg/dL (75-99)
[2019-04-21] MEDS: CARVEDILOL 3.125 MG TAB PO SCH ×2 (07:08→17:48)
[2019-04-21] MEDS: INSULN ASP PRT/INSULIN ASPART 100 UNIT/ML 10 ML VIAL SQ SCH ×2 (07:08→17:48)
[2019-04-21 07:54] LABS: Anisocytosis Slight; Basophils # (A) 0.1 k/uL (0-0.2); Basophils % (A) 1 %; Eosinophils # (A) 0.5 k/uL (0-0.7); Eosinophils % (A) 7 %; HCT 50.1 % (39.0-53.0); HGB 16.2 gm/dL (13.0-17.5); Lymphocytes # (A) 2.7 k/uL (1.0-4.8); Lymphocytes % (A) 35 %; MCH 27.9 pg (25.0-35.0); MCHC 32.5 g/dL (31.0-37.0); MCV 86.1 fL (80.0-100.0); Mean Platelet Volume 9.9; Monocytes # (A) 0.8 k/uL (0-1.0); Monocytes % (A) 10 %; Neutrophils # (A) 3.5 k/uL (1.3-7.7); Neutrophils % (A) 44 %; Platelet Count 210 k/uL (150-450); RBC 5.82 m/uL (4.30-5.90); RDW 17.2 % (11.5-15.5); WBC 7.9 k/uL (3.8-10.6)
[2019-04-21 08:04] LABS: INR 1.1 (<1.2); Partial Thromboplastin Time 54.1 sec (22.0-30.0); Prothrombin Time 11.2 sec (9.0-12.0)
[2019-04-21] MEDS: GABAPENTIN 400 MG CAP PO SCH ×4 (09:13→19:54)
[2019-04-21] MEDS: LEFLUNOMIDE 20 MG TAB PO SCH (09:13)
[2019-04-21] MEDS: LORATADINE 10 MG TAB PO SCH (09:14)
[2019-04-21] MEDS: ASPIRIN 81 MG PO SCH (09:14)
[2019-04-21] MEDS: LISINOPRIL 5 MG TAB PO SCH (09:14)
--- NOTE | 2019-04-21 09:50 | P.PN ---
Subjective Progress Note Date: 04/21/19 This is a pleasant 53-year-old -[place] gentleman with known history of hypertension, diabetes, hyperlipidemia, coronary artery disease with prior stent placements, exact details of that unavailable at this time, he also has history of AICD implantation, nicotine dependence, chronic kidney disease, denies significant alcohol use. He presented to the hospital this morning with the symptoms of fairly sudden onset of shortness of breath. According to the patient, yesterday and the days prior he felt quite well, woke up this morning and just could not breathe. He does state that his heart was racing quite fast at the time. His blood pressure on arrival here was 159/133, heart rate in the low 100s, 99% on CPAP on arrival to the floor patient's blood pressure 144/60 with a heart rate of 70, 95% on room air. White blood cell count 7.8, hemoglobin 15.6, platelet count 233. Sodium 141, potassium 4.8, BUN 11 and creatinine 0.8. Troponin 0.225, BNP level 1230. Chest x-ray on arrival here showed cardiomegaly with findings suggestive of mild to moderate pulmonary vascular congestion/pulmonary edema. EKG showed a sinus tachycardia with anterior lateral ST-T wave changes. At the time of my examination, breathing breathing for the patient was much more stable, he is currently on room air and satting 95%. 04/21/2019 Patient was seen and examined this morning, he states that his breathing has significantly improved from admission here. Blood pressure this morning 138/80 with a heart rate in the 80s, 94% on room air. White blood cell count 7.9, hemoglobin 16.2, platelet count 210. His weight is down 1 kg today. Objective - Vital Signs Vital signs: Vital Signs Temp 97.9 F 04/21/19 04:00 Pulse 88 04/21/19 07:13 Resp 17 04/21/19 04:00 BP 139/80 04/21/19 04:00 Pulse Ox 95 04/21/19 07:01 Intake & Output 04/20/19 04/21/19 04/21/19 18:59 06:59 18:59 Intake Total 618.778 171.222 0 Output Total 1300 950 175 Balance -681.222 -778.778 -175 Weight 103.873 kg 102.2 kg Intake: Amount of Fluid Infused ( 60 ml) Intake, IV Titration 78.778 171.222 Amount Heparin Sod,Pork in 0.45% 78.778 171.222 NaCl 25,000 unit In 0.45 % NaCl 1 250ml.bag @ 9.62 UNITS/KG/HR 9.993 mls/hr IV .Q24H LUPE Rx#: [id number] Oral 480 0 Output: Urine 1300 950 175 Other: # Voids 700 # Bowel Movements 0 - Exam PHYSICAL EXAMINATION: GENERAL: 53-year-old -[place] gentleman in no acute distress at the time of my examination HEENT: Head is atraumatic, normocephalic. Pupils equal, round. Sclera anicteric. Conjunctiva are clear. Mucous membranes of the mouth are moist. Neck is supple. There is no elevated jugular venous pressure. No carotid bruit is heard. HEART EXAMINATION: Heart S1 S2 1 systolic murmur is heard CHEST EXAMINATION: Lungs reveal diminished air entry bilaterally with scattered wheezing throughout. ABDOMEN: Soft, nontender. Bowel sounds are heard. No organomegaly noted. EXTREMITIES: 2+ peripheral pulses with no evidence of peripheral edema and no calf tenderness noted. NEUROLOGIC patient is awake, alert and oriented 3 . - Labs CBC & Chem 7: 04/21/19 07:03 04/20/19 04:34 Labs: Abnormal Lab Results - Last 24 Hours (Table) 04/20/19 04/20/19 04/20/19 Range/Units 11:44 13:53 13:53 RDW (11.5-15.5) % APTT 32.2 H (22.0-30.0) sec POC Glucose (mg/dL) 109 H (75-99) mg/dL Troponin I 0.186 H* (0.000-0.034) ng/mL 04/20/19 04/20/19 04/20/19 Range/Units 16:56 19:02 19:02 RDW (11.5-15.5) % APTT 32.1 H (22.0-30.0) sec POC Glucose (mg/dL) 107 H (75-99) mg/dL Troponin I 0.186 H* (0.000-0.034) ng/mL 04/21/19 04/21/19 04/21/19 Range/Units 01:40 07:03 07:03 RDW 17.2 H (11.5-15.5) % APTT 43.2 H 54.1 H (22.0-30.0) sec POC Glucose (mg/dL) (75-99) mg/dL Troponin I (0.000-0.034) ng/mL Assessment and Plan Plan: Assessment and plan #1 congestive heart failure, acute on chronic, LV function unknown #2 hypertensive urgency #3 diabetes #4 hyperlipidemia #5 known history of coronary artery disease with prior stent placements #6 status post prior AICD implant #7 nicotine dependence #8 abnormality in troponin, could be secondary to hypertension and hypoxia on admission. We will obtain 2 subsequent troponins. Plan We will review the patient's echocardiogram with Doppler study. We will also o btain the most recent progress note from the office. Continue current dose of IV Lasix. Continue Coreg, baby aspirin, statin, and lisinopril. DNP note has been reviewed, I agree with a documented findings and plan of care. Patient was seen and examined.
[2019-04-21] MEDS: HYDROcodone/APAP 10-325MG 1 EACH TAB PO PRN ×2 (11:00→23:09)
[2019-04-21 12:17] LABS: Glucose,Whole Blood 84 mg/dL (75-99)
[2019-04-21 17:19] LABS: Glucose,Whole Blood 135 mg/dL (75-99)
--- NOTE | 2019-04-21 19:24 | PN ---
PROGRESS NOTE CHIEF COMPLAINT: Congestive heart failure and COPD. HISTORY OF PRESENT ILLNESS: This gentleman is doing a little bit better. His chest is slowly improving. He has had no fever, chills, chest pain etc. PHYSICAL EXAM: Breath sounds are improved. There are still scattered rales and rhonchi. Cardiac exam is normal and the abdomen is soft, nontender. IMPRESSION: 1. Acute congestive heart failure. 2. Chronic congestive heart failure. 3. Chronic obstructive pulmonary disease. PLAN: Continue with current treatment with diaphoresis. MMODL / IJN: [id number] /
[2019-04-21] MEDS: ATORVASTATIN 80 MG TAB PO SCH (19:54)
[2019-04-21 20:58] LABS: Glucose,Whole Blood 70 mg/dL (75-99)
[2019-04-22] MEDS: PANTOPRAZOLE 40 MG TABLET PO SCH (06:41)
[2019-04-22] MEDS: FUROSEMIDE 10 MG/ML 4 ML VIAL IV SCH ×3 (06:41→21:31)
[2019-04-22] MEDS: CARVEDILOL 3.125 MG TAB PO SCH ×2 (06:41→18:10)
[2019-04-22] MEDS: HEPARIN SOD,PORK IN 0.45% NACL 25,000 UNIT in 0.45% NACL 1 250ML.BAG IV SCH (06:43)
[2019-04-22 06:49] LABS: Glucose,Whole Blood 92 mg/dL (75-99)
[2019-04-22] MEDS: INSULN ASP PRT/INSULIN ASPART 100 UNIT/ML 10 ML VIAL SQ SCH ×2 (07:15→18:10)
[2019-04-22] MEDS: IPRATROPIUM-ALBUTEROL 3 ML NEB INHALATION SCH ×4 (08:40→20:37)
[2019-04-22] MEDS: LEFLUNOMIDE 20 MG TAB PO SCH (09:04)
[2019-04-22] MEDS: GABAPENTIN 400 MG CAP PO SCH ×4 (09:04→21:31)
[2019-04-22] MEDS: LISINOPRIL 5 MG TAB PO SCH (09:04)
[2019-04-22] MEDS: ASPIRIN 81 MG PO SCH (09:05)
[2019-04-22] MEDS: LORATADINE 10 MG TAB PO SCH (09:05)
[2019-04-22 09:21] LABS: INR 1.1 (<1.2); Partial Thromboplastin Time 55.3 sec (22.0-30.0); Prothrombin Time 11.3 sec (9.0-12.0)
[2019-04-22 09:32] LABS: Anisocytosis Slight; Basophils # (A) 0.1 k/uL (0-0.2); Basophils % (A) 1 %; Eosinophils # (A) 0.6 k/uL (0-0.7); Eosinophils % (A) 7 %; HCT 53.5 % (39.0-53.0); HGB 16.5 gm/dL (13.0-17.5); Lymphocytes # (A) 2.3 k/uL (1.0-4.8); Lymphocytes % (A) 26 %; MCH 26.8 pg (25.0-35.0); MCHC 30.8 g/dL (31.0-37.0); MCV 86.9 fL (80.0-100.0); Mean Platelet Volume 10.3; Monocytes # (A) 0.8 k/uL (0-1.0); Monocytes % (A) 9 %; Neutrophils % (A) 55 %; Platelet Count 208 k/uL (150-450); RBC 6.15 m/uL (4.30-5.90); RDW 16.9 % (11.5-15.5); WBC 9.1 k/uL (3.8-10.6)
--- NOTE | 2019-04-22 11:19 | ECHOF ---
Referral Reason:Heart Failure MEASUREMENTS -------- HEIGHT: 165.1 cm WEIGHT: 103.9 kg BP: 139/80 RVIDd: 3.5 cm (< 3.3) IVSd: 1.4 cm (0.6 - 1.1) LVIDd: 5.0 cm (3.9 - 5.3) LVPWd: 1.8 cm (0.6 - 1.1) IVSs: 1.6 cm LVIDs: 4.6 cm LVPWs: 1.6 cm LA Diam: 3.4 cm (2.7 - 3.8) Ao Diam: 3.6 cm (2.0 - 3.7) AV Cusp: 2.1 cm (1.5 - 2.6) LA Diam: 3.3 cm (2.7 - 3.8) MV EXCURSION: 12.495 mm (> 18.000) MV EF SLOPE: 46 mm/s (70 - 150) EPSS: 1.7 cm MV E [place]: 0.32 m/s MV DecT: 224 ms MV A [place]: 0.53 m/s MV E/A Ratio: 0.61 RAP: 5.00 mmHg RVSP: 11.33 mmHg [place], PACER DM, SMOKER, COPD FINDINGS -------- Paced rhythm. This was a techncally difficult study with suboptimal views, , Lumason utilized for enhancement of im ages. The left ventricular size is normal. There is moderate concentric left ventricular hypertrophy. T here is moderate global hypokinesis of LV . Overall left ventricular systolic function is moderatel y impaired with, an EF between 35 - 40 %. Posterior hypokinesis Inferiorlateral Hypokinesis The right ventricle is normal in size. The left atrial size is normal. The right atrial size is normal. 5.0mg OF Lumason UTLIZED: 2 OR MORE WALL SEGMENTS NOT VISUALIZED. There is mild aortic valve sclerosis. There is no evidence of aortic regurgitation. Mild mitral annular calcification present. Mild mitral regurgitation is present. Mild tricuspid regurgitation present. Right ventricular systolic pressure is normal at < 35 mmHg. There is no pulmonic regurgitation present. Apical Thrombus noted in [place]. Echo free space represents a pericardial fat pad. CONCLUSIONS -------- 1. This was a techncally difficult study with suboptimal views, , Lumason utilized for enhancement of images. 2. The left ventricular size is normal. 3. There is moderate concentric left ventricular hypertrophy. 4. There is moderate global hypokinesis of LV . 5. Overall left ventricular systolic function is moderately impaired with, an EF between 35 - 40 %. 6. Posterior hypokinesis 7. Inferiorlateral Hypokinesis 8. The right ventricle is normal in size. 9. The left atrial size is normal. 10. The right atrial size is normal. 11. 5.0mg OF Lumason UTLIZED: 2 OR MORE WALL SEGMENTS NOT VISUALIZED. 12. There is mild aortic valve sclerosis. 13. Mild mitral annular calcification present. 14. Mild mitral regurgitation is present. 15. Mild tricuspid regurgitation present. 16. Right ventricular systolic pressure is normal at < 35 mmHg. 17. There is no pulmonic regurgitation present. 18. Apical Thrombus noted in [place]. 19. Echo free space represents a pericardial fat pad. COLORING MACHINE OPERATOR: Patricia Mercado RDCS
[2019-04-22 12:38] LABS: Glucose,Whole Blood 77 mg/dL (75-99)
--- NOTE | 2019-04-22 15:22 | P.PN ---
Subjective Progress Note Date: 04/22/19 This is a pleasant 53-year-old -[place] gentleman with known history of hypertension, diabetes, hyperlipidemia, coronary artery disease with prior stent placements, exact details of that unavailable at this time, he also has history of AICD implantation, nicotine dependence, chronic kidney disease, denies significant alcohol use. He presented to the hospital this morning with the symptoms of fairly sudden onset of shortness of breath. According to the patient, yesterday and the days prior he felt quite well, woke up this morning and just could not breathe. He does state that his heart was racing quite fast at the time. His blood pressure on arrival here was 159/133, heart rate in the low 100s, 99% on CPAP on arrival to the floor patient's blood pressure 144/60 with a heart rate of 70, 95% on room air. White blood cell count 7.8, hemoglobin 15.6, platelet count 233. Sodium 141, potassium 4.8, BUN 11 and creatinine 0.8. Troponin 0.225, BNP level 1230. Chest x-ray on arrival here showed cardiomegaly with findings suggestive of mild to moderate pulmonary vascular congestion/pulmonary edema. EKG showed a sinus tachycardia with anterior lateral ST-T wave changes. At the time of my examination, breathing breathing for the patient was much more stable, he is currently on room air and satting 95%. 04/21/2019 Patient was seen and examined this morning, he states that his breathing has significantly improved from admission here. Blood pressure this morning 138/80 with a heart rate in the 80s, 94% on room air. White blood cell count 7.9, hemoglobin 16.2, platelet count 210. His weight is down 1 kg today. 04/22/2019 Patient was seen and examined this morning, blood pressure 110/70 with a heart rate in the 90s, 93% on room air. Weight is down significantly today. Patient feels overall quite a bit better. Blood pressure 110/70 with a heart rate of 90, 93% on room air. White blood cell count 9.1, hemoglobin 16.5, platelet count 208. Objective - Vital Signs Vital signs: Vital Signs Temp 98.7 F 04/22/19 08:00 Pulse 90 04/22/19 12:00 Resp 16 04/22/19 04:00 BP 110/78 04/22/19 12:00 Pulse Ox 93 L 04/22/19 12:00 Intake & Output 04/21/19 04/22/19 04/22/19 18:59 06:59 18:59 Intake Total 730 480 Output Total 1225 150 900 Balance -495 -150 -420 Weight 96.7 kg Intake: Intake, IV Titration 250 Amount Heparin Sod,Pork in 0.45% 250 NaCl 25,000 unit In 0.45 % NaCl 1 250ml.bag @ 9.62 UNITS/KG/HR 9.993 mls/hr IV .Q24H LUPE Rx#: [id number] Oral 480 480 Output: Urine 1225 150 900 Other: Voiding Method Urinal # Voids 2 - Exam PHYSICAL EXAMINATION: GENERAL: 53-year-old -[place] gentleman in no acute distress at the time of my examination HEENT: Head is atraumatic, normocephalic. Pupils equal, round. Sclera anicte miranda. Conjunctiva are clear. Mucous membranes of the mouth are moist. Neck is supple. There is no elevated jugular venous pressure. No carotid bruit is heard. HEART EXAMINATION: Heart S1 S2 1 systolic murmur is heard CHEST EXAMINATION: Lungs reveal diminished air entry bilaterally with scattered wheezing throughout. ABDOMEN: Soft, nontender. Bowel sounds are heard. No organomegaly noted. EXTREMITIES: 2+ peripheral pulses with no evidence of peripheral edema and no calf tenderness noted. NEUROLOGIC patient is awake, alert and oriented 3 . - Labs CBC & Chem 7: 04/22/19 08:18 04/20/19 04:34 Labs: Abnormal Lab Results - Last 24 Hours (Table) 04/21/19 04/21/19 04/22/19 Range/Units 17:10 20:56 08:18 RBC 6.15 H (4.30-5.90) m/uL Hct 53.5 H (39.0-53.0) % MCHC 30.8 L (31.0-37.0) g/dL RDW 16.9 H (11.5-15.5) % APTT (22.0-30.0) sec POC Glucose (mg/dL) 135 H 70 L (75-99) mg/dL 04/22/19 Range/Units 08:18 RBC (4.30-5.90) m/uL Hct (39.0-53.0) % MCHC (31.0-37.0) g/dL RDW (11.5-15.5) % APTT 55.3 H (22.0-30.0) sec POC Glucose (mg/dL) (75-99) mg/dL Assessment and Plan Plan: Assessment and plan #1 congestive heart failure, acute on chronic, LV function unknown #2 hypertensive urgency #3 diabetes #4 hyperlipidemia #5 known history of coronary artery disease with prior stent placements #6 status post prior AICD implant #7 nicotine dependence #8 abnormality in troponin, could be secondary to hypertension and hypoxia on admission. We will obtain 2 subsequent troponins. Plan Patient is currently on oral diuretics. He continues to be on IV heparin. Echocardiogram with Doppler study revealed moderate global hypokinesia with an EF of 35-40%. It also noted and apical thrombus. We reviewed the echo that the patient had done at [facility] [place] in July of last year, his ejection fraction at that time was documented to be normal, there was no evidence of apical thrombus at that time. Dr. Russo's recommendation is to continue with the IV heparin drip, we'll continue to monitor the patient for the next 24 hours and further recommendations will be made. DNP note has been reviewed, I agree with a documented findings and plan of care. Patient was seen and examined.
[2019-04-22 16:58] LABS: Glucose,Whole Blood 103 mg/dL (75-99)
[2019-04-22 20:58] LABS: Glucose,Whole Blood 98 mg/dL (75-99)
[2019-04-22] MEDS: ATORVASTATIN 80 MG TAB PO SCH (21:31)
--- NOTE | 2019-04-22 22:35 | PN ---
PROGRESS NOTE CHIEF COMPLAINT: Hypertension and congestive heart failure. HISTORY OF PRESENT ILLNESS: This gentleman continues to improve. Breathing is improving. Blood pressures are under good control. PHYSICAL EXAMINATION: There are scattered rales at the bases, but otherwise his chest is clear. Cardiac exam is normal. Abdomen is soft, nontender. IMPRESSION: 1. Acute congestive heart failure. 2. Hypertensive urgency. PLAN: Continue with current treatment and increase activity. He can probably go home tomorrow. MMODL / IJN: [id number] /
[2019-04-22] MEDS: HYDROcodone/APAP 10-325MG 1 EACH TAB PO PRN (22:45)
[2019-04-22 23:15] VITALS: RESP 16
[2019-04-23] MEDS: PANTOPRAZOLE 40 MG TABLET PO SCH (06:28)
[2019-04-23] MEDS: FUROSEMIDE 10 MG/ML 4 ML VIAL IV SCH (06:28)
[2019-04-23] MEDS: CARVEDILOL 3.125 MG TAB PO SCH (06:28)
[2019-04-23] MEDS: HEPARIN SOD,PORK IN 0.45% NACL 25,000 UNIT in 0.45% NACL 1 250ML.BAG IV SCH (06:32)
[2019-04-23] MEDS: IPRATROPIUM-ALBUTEROL 3 ML NEB INHALATION SCH ×3 (06:48→16:22)
[2019-04-23 06:59] LABS: Anisocytosis Slight; Basophils # (A) 0.1 k/uL (0-0.2); Basophils % (A) 1 %; Eosinophils # (A) 0.6 k/uL (0-0.7); Eosinophils % (A) 6 %; HCT 52.9 % (39.0-53.0); HGB 16.6 gm/dL (13.0-17.5); Lymphocytes # (A) 2.5 k/uL (1.0-4.8); Lymphocytes % (A) 28 %; MCH 27.3 pg (25.0-35.0); MCHC 31.5 g/dL (31.0-37.0); MCV 86.9 fL (80.0-100.0); Mean Platelet Volume 9.5; Monocytes % (A) 11 %; Neutrophils # (A) 4.5 k/uL (1.3-7.7); Neutrophils % (A) 50 %; Platelet Count 199 k/uL (150-450); RBC 6.09 m/uL (4.30-5.90); RDW 17.1 % (11.5-15.5); WBC 8.9 k/uL (3.8-10.6)
[2019-04-23 07:06] LABS: Partial Thromboplastin Time 56.2 sec (22.0-30.0); Prothrombin Time 11.1 sec (9.0-12.0)
[2019-04-23] MEDS: INSULN ASP PRT/INSULIN ASPART 100 UNIT/ML 10 ML VIAL SQ SCH (07:14)
[2019-04-23 07:15] LABS: Glucose,Whole Blood 97 mg/dL (75-99)
[2019-04-23] MEDS ORDERED: APIXABAN 5 MG TAB PO SCH (11:00)
--- NOTE | 2019-04-23 11:01 | P.PN ---
Subjective Progress Note Date: 04/23/19 This is a pleasant 53-year-old -[place] gentleman with known history of hypertension, diabetes, hyperlipidemia, coronary artery disease with prior stent placements, exact details of that unavailable at this time, he also has history of AICD implantation, nicotine dependence, chronic kidney disease, denies significant alcohol use. He presented to the hospital this morning with the symptoms of fairly sudden onset of shortness of breath. According to the patient, yesterday and the days prior he felt quite well, woke up this morning and just could not breathe. He does state that his heart was racing quite fast at the time. His blood pressure on arrival here was 159/133, heart rate in the low 100s, 99% on CPAP on arrival to the floor patient's blood pressure 144/60 with a heart rate of 70, 95% on room air. White blood cell count 7.8, hemoglobin 15.6, platelet count 233. Sodium 141, potassium 4.8, BUN 11 and creatinine 0.8. Troponin 0.225, BNP level 1230. Chest x-ray on arrival here showed cardiomegaly with findings suggestive of mild to moderate pulmonary vascular congestion/pulmonary edema. EKG showed a sinus tachycardia with anterior lateral ST-T wave changes. At the time of my examination, breathing breathing for the patient was much more stable, he is currently on room air and satting 95%. 04/21/2019 Patient was seen and examined this morning, he states that his breathing has significantly improved from admission here. Blood pressure this morning 138/80 with a heart rate in the 80s, 94% on room air. White blood cell count 7.9, hemoglobin 16.2, platelet count 210. His weight is down 1 kg today. 04/22/2019 Patient was seen and examined this morning, blood pressure 110/70 with a heart rate in the 90s, 93% on room air. Weight is down significantly today. Patient feels overall quite a bit better. Blood pressure 110/70 with a heart rate of 90, 93% on room air. White blood cell count 9.1, hemoglobin 16.5, platelet count 208. 04/23/2019 Patient was seen and examined this morning, hemodynamically stable and overall doing well. He is currently on IV heparin, we will check to see whether her Eliquis, then we will initiate Eliquis 5 mg one tablet by mouth twice a day because of the apical thrombus. Discharged home today from our perspective with a follow-up appointment in the office with Dr. Camarillo. Objective - Vital Signs Vital signs: Vital Signs Temp 98.4 F 04/23/19 03:51 Pulse 74 04/23/19 06:55 Resp 16 04/23/19 03:51 BP 110/75 04/23/19 03:51 Pulse Ox 96 04/23/19 03:51 Intake & Output 04/22/19 04/23/19 04/23/19 18:59 06:59 18:59 Intake Total 720 480 Output Total 900 1000 800 Balance -180 -1000 -320 Weight 96.1 kg Intake: Oral 720 480 Output: Urine 900 1000 800 Other: Voiding Method Urinal # Voids 2 2 - Exam PHYSICAL EXAMINATION: GENERAL: 53-year-old -[place] gentleman in no acute distress at the time of my examination HEENT: Head is atraumatic, normocephalic. Pupils equal, round. Sclera anicteric. Conjunctiva are clear. Mucous membranes of the mouth are moist. Neck is supple. There is no elevated jugular venous pressure. No carotid bruit is heard. HEART EXAMINATION: Heart S1 S2 1 systolic murmur is heard CHEST EXAMINATION: Lungs reveal diminished air entry bilaterally with scattered wheezing throughout. ABDOMEN: Soft, nontender. Bowel sounds are heard. No organomegaly noted. EXTREMITIES: 2+ peripheral pulses with no evidence of peripheral edema and no calf tenderness noted. NEUROLOGIC patient is awake, alert and oriented 3 . - Labs CBC & Chem 7: 04/23/19 06:49 04/20/19 04:34 Labs: Abnormal Lab Results - Last 24 Hours (Table) 04/22/19 04/23/19 04/23/19 Range/Units 16:54 06:49 06:51 RBC 6.09 H (4.30-5.90) m/uL RDW 17.1 H (11.5-15.5) % APTT 56.2 H (22.0-30.0) sec POC Glucose (mg/dL) 103 H (75-99) mg/dL Assessment and Plan Plan: Assessment and plan #1 congestive heart failure, acute on chronic, LV function unknown #2 hypertensive urgency #3 diabetes #4 hyperlipidemia #5 known history of coronary artery disease with prior stent placements #6 status post prior AICD implant #7 nicotine dependence #8 abnormality in troponin, could be secondary to hypertension and hypoxia on admission. We will obtain 2 subsequent troponins. Plan We'll discontinue the IV heparin and start the patient on Eliquis 5 mg one tablet by mouth twice a day. From cardiology standpoint he should be able to be discharged home today. We'll make him a follow-up appointment to see Dr. Camarillo in the office post discharge. DNP note has been reviewed, I agree with a documented findings and plan of care. Patient was seen and examined.
[2019-04-23] MEDS: LISINOPRIL 5 MG TAB PO SCH (11:08)
[2019-04-23] MEDS: ASPIRIN 81 MG PO SCH (11:08)
[2019-04-23] MEDS: GABAPENTIN 400 MG CAP PO SCH ×2 (11:08→13:40)
[2019-04-23] MEDS: LORATADINE 10 MG TAB PO SCH (11:08)
[2019-04-23] MEDS: LEFLUNOMIDE 20 MG TAB PO SCH (11:09)
[2019-04-23 11:59] VITALS: TEMP 98.7
[2019-04-23 12:00] LABS: Glucose,Whole Blood 81 mg/dL (75-99)
[2019-04-23 14:55] VITALS: BP 132/87; PULSE 51
[2019-04-24] MEDS ORDERED: FUROSEMIDE 40 MG TAB PO SCH (09:00)
--- NOTE | 2019-04-25 10:07 | CDI ---
Documentation Clarification Form Date: 04/25/19 From: Barbra Decker Phone: If you have a question regarding this query, please contact Rosa Fenton at [phone] between 8am and 5pm. Admit Date: 04/20/2019 5:51:00 AM Patient Name: Douglas Kruger Visit Number: [id number] Discharge Date: 04/23/2019 4:12:00 PM ATTENTION: The Clinical Documentation Specialists (CDI) and [facility] Coding Staff appreciate your assistance in clarifying documentation. Please respond to the clarification below the line at the bottom and electronically sign. The CDI & [facility] Coding staff will review the response and follow-up if needed. Please note: Queries are made part of the Legal Health Record. If you have any questions, please contact the author of this message via ITS. Dr. Aime Mcnulty/JASON Combs CHF acute on chronic is documented throughout the record. History/Risk Factors: Hypertension, CAD and COPD. Clinical Indicators: Shortness of breath VS/Pulse OX: T. 98.0, P. 101, R. 30, BP 159/133, Pulse Ox 99% on O2 in the ER on BiPAP. BNP: 1230 Echocardiogram Results: Overall left ventricular function is moderately impaired with an EF between 35 - 40% Chest X Ray: Cardiomegaly with findings suggestive of mild/moderate pulmonary vascular congestion/pulmonary edema. Treatment: IV Lasix In your professional opinion, can you please clarify the type of CHF if known? Systolic Heart Failure: Diastolic Heart Failure: Systolic & Diastolic Heart Failure: Unable to Determine Other, please specify MTDD
--- NOTE | 2019-04-25 10:15 | CDI ---
Documentation Clarification Form Date: 04/25/19 From: Barbra Decker Phone: If you have a question regarding this query, please contact Rosa Fenton at [phone] between 8am and 5pm. Admit Date: 04/20/2019 5:51:00 AM Patient Name: Douglas Kruger Visit Number: [id number] Discharge Date: 04/23/2019 4:12:00 PM ATTENTION: The Clinical Documentation Specialists (CDI) and [facility] Coding Staff appreciate your assistance in clarifying documentation. Please respond to the clarification below the line at the bottom and electronically sign. The CDI & [facility] Coding staff will review the response and follow-up if needed. Please note: Queries are made part of the Legal Health Record. If you have any questions, please contact the author of this message via ITS. Dr. Dashawn Sifuentes Chronic kidney disease was documented in the cardiology consult note and progress notes. History/Risk Factors: Hypertension Patients BUN/CR/GFR: 11/0.83/>90, and was only tested once. Clinical Indicators: Shortness of breath due to CHF exacerbation. Treatment: No treatment for renal failure In order to capture the severity of condition, please clarify if the condition signifies: Chronic renal failure ruled out CKD Stage 1 GFR >90 CKD Stage 2 GFR 60-89 CKD Stage 3 GFR 30-59 CKD Stage 4 GFR 15-29 CKD Stage 5 GFR <15 ESRD Other, please specify Unable to determine MTDD
--- NOTE | 2019-04-25 10:24 | CDI ---
Documentation Clarification Form Date: 04/25/19 From: Barbra Decker Phone: If you have a question regarding this query, please contact Rosa Fenton at [phone] between 8am and 5pm. Admit Date: 04/20/2019 5:51:00 AM Patient Name: Douglas Kruger Visit Number: [id number] Discharge Date: 04/23/2019 4:12:00 PM ATTENTION: The Clinical Documentation Specialists (CDI) and [facility] Coding Staff appreciate your assistance in clarifying documentation. Please respond to the clarification below the line at the bottom and electronically sign. The CDI & [facility] Coding staff will review the response and follow-up if needed. Please note: Queries are made part of the Legal Health Record. If you have any questions, please contact the author of this message via ITS. Dr. Dashawn Sifuentes Acute respiratory failure is documented in the ED note. History/Risk Factors: CHF exacerbation, COPD and CAD Tobacco use: Current cigarette smoker Home oxygen: Clinical Indicators: Documentation in the ED stated that per EMS the patient had significant work of breathing and low oxygen levels. Vital signs: T. 98.0, P. 101, R. 30, BP 159/133 Pulse oximetry: 99% on CPAP in the ER Lung/Breathing assessment: Poor breath sounds with rales at both bases and scattered rhonchi Treatment: Breathing tx: Ventolin and Duoneb Continuous Pulse ox 95 - 99% on oxygen O2/Vent/BiPap CPAP and BiPAP In your professional opinion, can you please clarify if these findings signify one of the following conditions? Respiratory Failure (further specify (if known)): With hypercapnia? (pCO2 >50 and pH <7.35) With hypoxia? (pO2 <60 mm Hg or SpO2 <91% on room air) Respiratory Distress Respiratory Insufficiency Other Diagnosis, please specify Unable to determine MTDD
--- NOTE | 2019-05-01 13:09 | MISC ---
MISCELLANOUS REPORT QUERY: Chronic renal failure ruled out. MMODL / IJN: [id number] /
--- NOTE | 2019-05-01 14:00 | MISC ---
MISCELLANOUS REPORT QUERY: Respiratory distress. MMODL / IJN: [id number] /
--- NOTE | 2019-05-07 18:00 | DS ---
DISCHARGE SUMMARY DATE OF DISCHARGE: 04/24/2019 CHIEF COMPLAINT: Shortness of breath. HISTORY OF PRESENT ILLNESS AND PHYSICAL EXAMINATION: Details of this man's history and physical can be found in the initial workup. LABORATORY STUDIES: While he was in the hospital he had laboratory studies, details of which can be found in the laboratory section of his chart. COURSE IN THE HOSPITAL: After admission he was placed on bedrest, started on intravenous fluids, nasal oxygen, updrafts, and he was diuresed. Chest slowly improved and he was able to be discharged on April 24, 2019. He will go home on [id number] diet, light activity, and he will be seen in the office in a day or two. FINAL DIAGNOSES: 1. Acute congestive heart failure. 2. Chronic congestive heart failure. 3. Chronic obstructive pulmonary disease. OPERATIONS: None. CONSULTATION: Cardiology. He is improved. RYAN / BEN: [id number] /
--- NOTE | 2019-05-14 14:49 | P.PN ---
Progress Note - Text Progress Note Date: 05/14/19 This is an addendum to the cardiology progress note, patient has systolic congestive heart failure acute on chronic. DNP note has been reviewed, I agree with a documented findings and plan of care. Patient was seen and examined.
== END 2019-04-23 16:12 | disposition home or self-care (01) | DRG 293 ==
LOC: EC 04:26 → 3SCARD 05:51
PROVIDERS: ADMIT Family Medicine; ATTEND Family Medicine
PROC: 5A09357 Assistance with Respiratory Ventilation, Less than 24 Consecutive Hours, Continuous Positive Airway Pressure (ICD-10-PCS; principal; 2019-04-20)
DX: I11.0 Hypertensive heart disease with heart failure (principal); I51.3 Intracardiac thrombosis, not elsewhere classified; I50.9 Heart failure, unspecified; E78.5 Hyperlipidemia, unspecified; F17.210 Nicotine dependence, cigarettes, uncomplicated; F41.9 Anxiety disorder, unspecified; E11.9 Type 2 diabetes mellitus without complications; G47.30 Sleep apnea, unspecified; I16.0 Hypertensive urgency; I25.10 Atherosclerotic heart disease of native coronary artery without angina pectoris; I48.91 Unspecified atrial fibrillation; M06.9 Rheumatoid arthritis, unspecified; M19.90 Unspecified osteoarthritis, unspecified site; J44.9 Chronic obstructive pulmonary disease, unspecified; K64.9 Unspecified hemorrhoids; R77.9 Abnormality of plasma protein, unspecified; E66.9 Obesity, unspecified; Z68.35 Body mass index [BMI] 35.0-35.9, adult; Z79.4 Long term (current) use of insulin; Z79.899 Other long term (current) drug therapy; Z86.73 Personal history of transient ischemic attack (TIA), and cerebral infarction without residual deficits; Z95.5 Presence of coronary angioplasty implant and graft; Z95.810 Presence of automatic (implantable) cardiac defibrillator
CPT/HCPCS: 36415; 71045; 80053; 83735; 83880; 84484; 85025; 85610; 85730; 93005; 93306; 94640; 94660; 94760; 96365; 96375; 96376; 99291

== ENCOUNTER → 2020-06-25 | Outpatient (CLI) | payer OTHER ==
--- NOTE | 2020-07-01 11:09 | P.ARTDOP ---
Arterial Doppler LOWER EXTREMITY ARTERIAL DOPPLER: DATE OF SERVICE: 06/25/2020 Reason for study: Right leg numbness. Doppler waveforms: Multiphasic bilaterally throughout. Pulse volume recording: []. Pressure gradients: None. Ankle-brachial indices: Greater than 1 bilaterally. Toe brachial indices: 1.01 on the right, 0.85 on the left Impression: Normal study.
== END | disposition home or self-care (01) ==
LOC: RADUSWWP 13:31
PROVIDERS: ATTEND Podiatrist Foot & Ankle Surgery
DX: I73.9 Peripheral vascular disease, unspecified (principal)
CPT/HCPCS: 93922

== ENCOUNTER 2020-11-15 17:05 | Inpatient (IN) | payer OTHER ==
[2020-11-15] MEDS ORDERED: ASPIRIN 81 MG PO STA (17:13)
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
[2020-11-15 17:34] LABS: Anisocytosis Moderate; Basophils # (A) 0.1 k/uL (0-0.2); Basophils % (A) 1 %; Eosinophils # (A) 0.3 k/uL (0-0.7); Eosinophils % (A) 3 %; HCT 29.8 % (39.0-53.0); HGB 8.8 gm/dL (13.0-17.5); Hypochromasia Marked; Lymphocytes # (A) 2.6 k/uL (1.0-4.8); Lymphocytes % (A) 27 %; MCH 23.2 pg (25.0-35.0); MCHC 29.5 g/dL (31.0-37.0); MCV 78.6 fL (80.0-100.0); Microcytosis Slight; Monocytes % (A) 10 %; Neutrophils # (A) 5.5 k/uL (1.3-7.7); Neutrophils % (A) 57 %; Platelet Count 382 k/uL (150-450); Poikilocytosis Moderate; RBC 3.79 m/uL (4.30-5.90); RDW 21.5 % (11.5-15.5); WBC 9.7 k/uL (3.8-10.6)
[2020-11-15 17:55] LABS: ALT 13 U/L (4-49); AST 25 U/L (17-59); African American GFR (CKD) >90 (>60 ml/min/1.73 sqM); Albumin 3.8 g/dL (3.5-5.0); Alkaline Phosphatase 80 U/L (38-126); Anion Gap 13 mmol/L; Blood Urea Nitrogen 6 mg/dL (9-20); Calcium 9.1 mg/dL (8.4-10.2); Carbon Dioxide 19 mmol/L (22-30); Chloride 107 mmol/L (98-107); Glucose 150 mg/dL (74-99); Magnesium 1.8 mg/dL (1.6-2.3); Non-African American GFR(CKD) >90 (>60 ml/min/1.73 sqM); Potassium 3.7 mmol/L (3.5-5.1); Sodium 139 mmol/L (137-145); Total Bilirubin 0.3 mg/dL (0.2-1.3)
[2020-11-15 18:12] LABS: Partial Thromboplastin Time 47.9 sec (22.0-30.0); Prothrombin Time 80.7 sec (9.0-12.0)
[2020-11-15 18:27] LABS: INR 8.2 (<1.2)
--- NOTE | 2020-11-15 18:40 | XR ---
EXAMINATION TYPE: XR chest 1V portable DATE OF EXAM: 11/15/2020 COMPARISON: 04/12/2019. HISTORY: Chest pain. TECHNIQUE: Single frontal view of the chest is obtained. FINDINGS: There is mild bibasilar streaky opacity. No pleural effusion, or pneumothorax seen. The c ardiac silhouette size is within normal limits. Left AICD seen. The osseous structures are intact. IMPRESSION: Mild bibasilar atelectasis. Otherwise no acute cardiopulmonary abnormality.
[2020-11-15] MEDS ORDERED: PHYTONADIONE 2 MG in SODIUM CHLORIDE 0.9% 50 ML IVPB STA (19:58)
[2020-11-15] MEDS ORDERED: LIDOCAINE-D5W PMX 2G/250ML 2,000 MG in DEXTROSE/WATER 1 250ML.BAG IV SCH (20:15)
[2020-11-15 23:41] LABS: Glucose,Whole Blood 126 mg/dL (75-99)
[2020-11-15] MEDS ORDERED: HYDROcodone/APAP 5-325MG 1 EACH TAB PO PRN (23:43)
[2020-11-15] MEDS: carvediloL 3.125 MG TAB PO SCH (23:48)
[2020-11-16 04:48] LABS: Cholesterol 146 mg/dL (<200); HDL Cholesterol 42 mg/dL (40-60); LDL Cholesterol,Calculated 82 mg/dL (0-99); Triglycerides 109 mg/dL (<150)
[2020-11-16 05:59] LABS: Glucose,Whole Blood 118 mg/dL (75-99)
[2020-11-16] MEDS: carvediloL 3.125 MG TAB PO SCH (06:14)
[2020-11-16] MEDS: PANTOPRAZOLE 40 MG TABLET PO SCH (06:14)
[2020-11-16 08:11] LABS: Anisocytosis Moderate; Basophils # (A) 0.1 k/uL (0-0.2); Basophils % (A) 1 %; Eosinophils # (A) 0.3 k/uL (0-0.7); Eosinophils % (A) 5 %; HCT 29.1 % (39.0-53.0); HGB 8.3 gm/dL (13.0-17.5); Hypochromasia Marked; Lymphocytes # (A) 1.6 k/uL (1.0-4.8); Lymphocytes % (A) 23 %; MCH 22.9 pg (25.0-35.0); MCHC 28.4 g/dL (31.0-37.0); MCV 80.3 fL (80.0-100.0); Mean Platelet Volume 7.1; Microcytosis Slight; Monocytes # (A) 0.9 k/uL (0-1.0); Monocytes % (A) 12 %; Neutrophils # (A) 4.1 k/uL (1.3-7.7); Neutrophils % (A) 57 %; Platelet Count 336 k/uL (150-450); Poikilocytosis Moderate; RBC 3.62 m/uL (4.30-5.90); RDW 21.6 % (11.5-15.5); WBC 7.2 k/uL (3.8-10.6)
[2020-11-16 08:16] LABS: INR 4.6 (<1.2); Partial Thromboplastin Time 43.9 sec (22.0-30.0); Prothrombin Time 44.8 sec (9.0-12.0)
[2020-11-16] MEDS: lisinopriL 20 MG TAB PO SCH (08:51)
[2020-11-16] MEDS: FUROSEMIDE 40 MG TAB PO SCH (08:52)
[2020-11-16] MEDS: LEFLUNOMIDE 20 MG TAB PO SCH (08:52)
[2020-11-16] MEDS: hydrALAZINE HCL 25 MG TAB PO SCH ×3 (08:52→20:34)
[2020-11-16] MEDS: ASPIRIN 81 MG PO SCH (08:57)
[2020-11-16] MEDS: AMIODARONE 200 MG TAB PO SCH ×2 (08:57→20:33)
[2020-11-16] MEDS: ATORVASTATIN 40 MG TAB PO SCH (08:57)
[2020-11-16] MEDS ORDERED: lisinopriL 5 MG TAB PO SCH ×2 (09:00)
[2020-11-16] MEDS ORDERED: amLODIPine 10 MG TAB PO SCH (09:00)
--- NOTE | 2020-11-16 10:43 | ECHOF ---
Referral Reason:v tach MEASUREMENTS -------- HEIGHT: 165.1 cm WEIGHT: 99.3 kg BP: 144/86 IVSd: 1.3 cm (0.6 - 1.1) LVIDd: 4.6 cm (3.9 - 5.3) LVPWd: 1.5 cm (0.6 - 1.1) IVSs: 1.5 cm LVIDs: 4.3 cm LVPWs: 1.3 cm LAESV Index (A-L): 25.10 ml/m Ao Diam: 3.5 cm (2.0 - 3.7) AV Cusp: 2.2 cm (1.5 - 2.6) MV EXCURSION: 14.577 mm (> 18.000) MV EF SLOPE: 74 mm/s (70 - 150) EPSS: 1.1 cm MV E Milton: 0.69 m/s MV DecT: 216 ms MV A [place]: 0.61 m/s MV E/A Ratio: 1.13 RAP: 5.00 mmHg RVSP: 24.09 mmHg FINDINGS -------- Paced rhythm. This was a techncally difficult study with suboptimal views, , Lumason utilized for enhancement of im ages. The left ventricular size is normal. There is mild concentric left ventricular hypertrophy. Overa ll left ventricular systolic function is mild-moderately impaired with, an EF between 40 - 45 %. The right ventricle is normal in size. Normal LA size by volume 22+/-6 ml/m2. The right atrial size is normal. 5.0mg OF Lumason UTLIZED: 2 OR MORE WALL SEGMENTS NOT VISUALIZED. There is mild aortic regurgitation. Mild mitral regurgitation is present. Mild tricuspid regurgitation present. The right ventricular systolic pressure, as measured by Doppl er, is 24.09mmHg. There is no pulmonic regurgitation present. The aortic root size is normal. Echo free space represents a pericardial fat pad. CONCLUSIONS -------- 1. This was a techncally difficult study with suboptimal views, , Lumason utilized for enhancement of images. 2. The left ventricular size is normal. 3. There is mild concentric left ventricular hypertrophy. 4. Overall left ventricular systolic function is mild-moderately impaired with, an EF between 40 - 45 %. 5. The right ventricle is normal in size. 6. Normal LA size by volume 22+/-6 ml/m2. 7. The right atrial size is normal. 8. 5.0mg OF Lumason UTLIZED: 2 OR MORE WALL SEGMENTS NOT VISUALIZED. 9. There is mild aortic regurgitation. 10. Mild mitral regurgitation is present. 11. Mild tricuspid regurgitation present. 12. The right ventricular systolic pressure, as measured by Doppler, is 24.09mmHg. 13. Echo free space represents a pericardial fat pad. GLASS ENAMEL MIXER: Patricia Mercado RDCS
[2020-11-16] MEDS: INSULN ASP PRT/INSULIN ASPART 100 UNIT/ML 10 ML VIAL SQ SCH ×2 (11:31→20:34)
[2020-11-16 11:40] LABS: Glucose,Whole Blood 131 mg/dL (75-99)
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
[2020-11-16] MEDS: carvediloL 12.5 MG TAB PO SCH (16:39)
[2020-11-16] MEDS: HYDROcodone/APAP 10-325MG 1 EACH TAB PO PRN (16:39)
[2020-11-16 16:54] LABS: Glucose,Whole Blood 115 mg/dL (75-99)
[2020-11-16] MEDS ORDERED: WARFARIN 0.5 MG TAB PO ONE (18:00)
--- NOTE | 2020-11-16 18:29 | HP ---
HISTORY AND PHYSICAL CHIEF COMPLAINT: Discharge of defibrillator. HISTORY OF PRESENT ILLNESS: This is another admission for this 55-year-old -[place] gentleman. He has a history of heart disease, hypertension, and he has an implanted defibrillator. It apparently had gone off several times when he came to the emergency room. He denies focal neurologic deficits, chest pain, loss of consciousness or any other complaints. He has been having a lot of pain in the right hip and thigh area for some time which has been unexplained. REVIEW OF SYSTEMS: He denies any neurologic problems or changes, change in vision or hearing, cough, hemoptysis, sputum production, orthopnea, PND, abdominal pain, nausea, vomiting, hematemesis, melena, jaundice, renal failure, acholic stools, dark urine, etc. Past medical history, family history, and personal and social histories reveal that HE HAS NOT HAD ALLERGIES. CURRENT MEDICATIONS: Current medications include Chantix, baclofen 10 mg q.i.d. p.r.n., Humalog 75/25, 40 units twice a day, furosemide 40 mg once a day, warfarin 2.5 once a day, hydralazine 25 mg t.i.d., amlodipine 10 mg once a day, carvedilol 6.25 twice a day, Vicodin 10 q.6 p.r.n., gabapentin 400 mg q.i.d., vitamin D once a month, omeprazole 20 mg once a day and leflunomide 20 mg once a day. PHYSICAL EXAMINATION: Blood pressure is 150/100 with a pulse of 84 and irregular. Respirations were 20. He is afebrile. In general he appeared to be well developed, well nourished, in no acute distress. Skin color is normal. Skin is warm and dry. Lymph nodes are not enlarged. Head, ears, eyes, nose, mouth and throat were normal. Neck veins were not distended. Carotids are normal. Chest is clear. No rales. Cardiac exam demonstrates sinus rhythm and no murmurs or extra sounds. Abdomen is flat, soft and nontender without any visceromegaly or masses. Bowel sounds are present. Extremities are normal. There is no gross abnormality in the right hip area or thigh. Neurologically he is intact. He is admitted to the hospital with the diagnoses: 1. Ventricular arrhythmia. 2. Insulin-dependent diabetes mellitus. 3. Nicotine abuse. 4. Peripheral neuropathy. 5. Unexplained pain in the right hip and thigh area. PLAN: 1. Bedrest. 2. IV fluids. 3. Telemetry. 4. Cardiology evaluation. 5. Possibly look further into the right hip and thigh pain while he is in the hospital. RYAN / BEN: [id number] /
--- NOTE | 2020-11-16 18:44 | PN ---
PROGRESS NOTE DATE OF SERVICE: 11/16/2020 CHIEF COMPLAINT: Episodes of ventricular tachycardia. HISTORY OF PRESENT ILLNESS: This gentleman is doing fairly well. He is feeling fairly well. He has not had any chest pain or shortness of breath. One troponin is slightly elevated. PHYSICAL EXAMINATION: His chest is clear. Cardiac exam at the present time is unremarkable. Abdomen is soft and nontender. IMPRESSION: 1. Ventricular arrhythmias. 2. Elevated troponin. 3. Diabetes mellitus. 4. Unexplained right hip and thigh pain. PLAN: Await further recommendations from Cardiology. Apparently amiodarone is being added. MMODL / IJN: [id number] /
[2020-11-16 20:12] LABS: Glucose,Whole Blood 160 mg/dL (75-99)
[2020-11-16] MEDS: FERROUS SULFATE 325 MG TAB PO SCH (20:34)
[2020-11-16] MEDS ORDERED: carvediloL 6.25 MG TAB PO SCH (21:00)
[2020-11-17 06:08] LABS: Glucose,Whole Blood 112 mg/dL (75-99)
[2020-11-17] MEDS: PANTOPRAZOLE 40 MG TABLET PO SCH (07:11)
[2020-11-17] MEDS: carvediloL 12.5 MG TAB PO SCH ×2 (07:11→17:10)
[2020-11-17 08:28] LABS: Calcium 9.2 mg/dL (8.4-10.2); Potassium 4.1 mmol/L (3.5-5.1)
[2020-11-17 08:29] LABS: INR 2.8 (<1.2); Prothrombin Time 26.9 sec (9.0-12.0)
[2020-11-17] MEDS: ASPIRIN 81 MG PO SCH (09:33)
[2020-11-17] MEDS: ATORVASTATIN 40 MG TAB PO SCH (09:33)
[2020-11-17] MEDS: LEFLUNOMIDE 20 MG TAB PO SCH (09:33)
[2020-11-17] MEDS: HYDROcodone/APAP 10-325MG 1 EACH TAB PO PRN ×2 (09:34→17:11)
[2020-11-17] MEDS: AMIODARONE 200 MG TAB PO SCH ×2 (09:34→22:00)
[2020-11-17] MEDS: FERROUS SULFATE 325 MG TAB PO SCH ×2 (09:34→22:00)
[2020-11-17] MEDS: lisinopriL 20 MG TAB PO SCH (09:34)
[2020-11-17] MEDS: hydrALAZINE HCL 25 MG TAB PO SCH ×3 (09:34→22:00)
[2020-11-17] MEDS: FUROSEMIDE 40 MG TAB PO SCH (09:35)
--- NOTE | 2020-11-17 10:20 | PN ---
PROGRESS NOTE Mr. Kruger is a 55-year-old male with history of coronary artery disease, history of ischemic cardiomyopathy status post ICD implantation who presented with a discharge from his device. Interrogation of device revealed tachycardia, probably ventricular tachycardia, although the possibility of SVT cannot be totally excluded. The patient has a single lead device. He is feeling well this morning. He is denying any chest pain. His breathing has been stable. On the monitor, he is in sinus mechanism. There is no evidence of tachycardia. He had an echocardiogram revealed an ejection fraction of 40% to 45% with mild aortic, mitral and tricuspid regurgitation. He continues to be at this time on aspirin 81 mg daily, amiodarone 400 mg twice a day, Lipitor 40 mg daily, Coreg 12.5 mg twice a day, Lasix 40 mg daily, hydralazine 25 mg 3 times a day, insulin, lisinopril 40 mg daily, and Protonix. PHYSICAL EXAMINATION: Blood pressure 103/70 with the heart rate in the 60s. LUNGS: Clear. HEART: Regular rate and rhythm. S1, S2. No S3 with a systolic murmur. No diastolic murmur. ABDOMEN: Soft, nontender. EXTREMITIES: No edema. LAB DATA: Lab data revealed BUN and creatinine 14 and 1.12. His INR is down to 2.8. IMPRESSION: 1. Status post discharge from the device with possible ventricular tachycardia. 2. History of ischemic cardiomyopathy with mildly impaired systolic function at this time. 3. History of coronary artery disease. 4. Anemia. RECOMMENDATION: Will check his INR tomorrow. If it is below 2 then I would recommend to proceed with cardiac catheterization with Dr. Camarillo. I discussed those findings with the patient and he is in full understanding and agreement. MMODL / IJN: [id number] /
[2020-11-17] MEDS: INSULN ASP PRT/INSULIN ASPART 100 UNIT/ML 10 ML VIAL SQ SCH ×2 (10:55→20:30)
[2020-11-17] MEDS ORDERED: ALPRAZolam 0.25 MG TAB PO PRN (11:56)
[2020-11-17] MEDS ORDERED: ALPRAZolam 0.5 MG TAB PO PRN (11:56)
[2020-11-17] MEDS ORDERED: NITROGLYCERIN SL TABS 0.4 MG TAB SUBLINGUAL PRN (11:56)
[2020-11-17 11:57] LABS: Glucose,Whole Blood 178 mg/dL (75-99)
--- NOTE | 2020-11-17 12:04 | PN ---
PROGRESS NOTE CHIEF COMPLAINT: Ventricular arrhythmia. HISTORY OF PRESENT ILLNESS: This gentleman is doing well. He has been placed on amiodarone and he has not had any further firing of his ICD. He has had no chest pain or shortness of breath. PHYSICAL EXAMINATION: His chest is quite clear. Cardiac exam is normal. Abdomen is soft and nontender. Extremities are normal. IMPRESSION: Ventricular arrhythmia. PLAN: Progress activity. Cardiology is considering cardiac cath at this time. MMODL / IJN: [id number] /
[2020-11-17 16:45] LABS: Glucose,Whole Blood 93 mg/dL (75-99)
[2020-11-17 20:12] LABS: Glucose,Whole Blood 185 mg/dL (75-99)
[2020-11-17] MEDS: INSULIN ASPART (NovoLOG) 100 UNIT/ML VIAL SQ SCH (22:00)
[2020-11-18] MEDS ORDERED: SODIUM CHLORIDE 0.9% 1,000 ML in EMPTY BAG 1 BAG IV ONE (00:01)
[2020-11-18] MEDS: hydrALAZINE HCL 25 MG TAB PO SCH ×4 (00:43→21:29)
[2020-11-18] MEDS ORDERED: ASPIRIN 325 MG TAB PO ONE (06:00)
[2020-11-18 06:13] LABS: Glucose,Whole Blood 85 mg/dL (75-99)
[2020-11-18] MEDS: PANTOPRAZOLE 40 MG TABLET PO SCH (06:21)
[2020-11-18] MEDS: carvediloL 12.5 MG TAB PO SCH ×2 (06:21→17:01)
[2020-11-18] MEDS: INSULIN ASPART (NovoLOG) 100 UNIT/ML VIAL SQ SCH ×4 (06:22→21:35)
[2020-11-18] MEDS ORDERED: HEPARIN SODIUM,PORCINE 2,500 UNIT in SODIUM CHLORIDE 0.9% 250 ML IRRIGATION PRN (07:00)
[2020-11-18] MEDS ORDERED: HEPARIN SODIUM,PORCINE 10,000 UNIT in SODIUM CHLORIDE 0.9% 1,000 ML IRRIGATION PRN (07:00)
[2020-11-18] MEDS ORDERED: INSULIN ASPART (NovoLOG) 100 UNIT/ML VIAL SQ SCH (07:30)
[2020-11-18 07:41] LABS: Anisocytosis Moderate; HCT 30.3 % (39.0-53.0); Hypochromasia Marked; MCH 23.6 pg (25.0-35.0); MCHC 29.9 g/dL (31.0-37.0); MCV 78.9 fL (80.0-100.0); Mean Platelet Volume 9.1; Microcytosis Moderate; Platelet Count 299 k/uL (150-450); Poikilocytosis Moderate; RBC 3.84 m/uL (4.30-5.90); RDW 22.3 % (11.5-15.5); WBC 8.6 k/uL (3.8-10.6)
[2020-11-18 07:45] LABS: Prothrombin Time 19.2 sec (9.0-12.0)
[2020-11-18 08:11] LABS: African American GFR (CKD) >90 (>60 ml/min/1.73 sqM); Anion Gap 8 mmol/L; Blood Urea Nitrogen 15 mg/dL (9-20); Carbon Dioxide 25 mmol/L (22-30); Chloride 106 mmol/L (98-107); Glucose 103 mg/dL (74-99); Non-African American GFR(CKD) 79 (>60 ml/min/1.73 sqM); Potassium 3.8 mmol/L (3.5-5.1); Sodium 139 mmol/L (137-145)
[2020-11-18] MEDS: AMIODARONE 200 MG TAB PO SCH ×2 (08:53→21:29)
[2020-11-18] MEDS: INSULN ASP PRT/INSULIN ASPART 100 UNIT/ML 10 ML VIAL SQ SCH ×2 (08:54→21:36)
[2020-11-18] MEDS: ASPIRIN 81 MG PO SCH (08:54)
[2020-11-18] MEDS: ATORVASTATIN 40 MG TAB PO SCH (08:54)
[2020-11-18] MEDS: FUROSEMIDE 40 MG TAB PO SCH (08:54)
[2020-11-18] MEDS: FERROUS SULFATE 325 MG TAB PO SCH ×2 (08:54→21:29)
[2020-11-18] MEDS: LEFLUNOMIDE 20 MG TAB PO SCH (08:55)
[2020-11-18] MEDS: lisinopriL 20 MG TAB PO SCH (08:55)
[2020-11-18] MEDS: HYDROcodone/APAP 10-325MG 1 EACH TAB PO PRN ×2 (09:00→21:32)
--- NOTE | 2020-11-18 09:53 | PN ---
PROGRESS NOTE Mr. Kruger is a 55-year-old male with a history of ischemic cardiomyopathy, history of ICD, who presented with discharge from his device. He is feeling well this morning. He is denying any chest pain. His breathing has been stable. He denies any dizziness or palpitation. He denies any nausea. He denies any cough. He continues to be at this time on amiodarone 400 mg twice a day, aspirin once a day, Lipitor 40 mg daily, Coreg 12.5 mg twice a day, Lasix 40 mg daily, hydralazine 25 mg 3 times a day, lisinopril 40 mg daily. PHYSICAL EXAMINATION: Blood pressure 129/80 with the heart rate in the 70s. LUNGS: Clear. HEART: Regular rate and rhythm. S1, S2. No S3. No rub. ABDOMEN: Soft, nontender. EXTREMITIES: No edema. LAB DATA: Lab data revealed BUN and creatinine 15 and 1.06. His INR is 2.0. Hemoglobin of 9. IMPRESSION: 1. Status post discharge from the device, possible ventricular tachycardia, although on some reviews it may represent supraventricular tachycardia. The device is a single lead device. 2. History of coronary artery disease. 3. History of ischemic cardiomyopathy. 4. History of hyperlipidemia. RECOMMENDATION: We will continue to hold his coumadin and repeat his INR. If he is below 2, proceed with cardiac catheterization tomorrow by Dr. Camarillo and depending on that, further recommendation will be made. MMODL / IJN: [id number] / MTDMason
[2020-11-18 12:00] LABS: Glucose,Whole Blood 117 mg/dL (75-99)
[2020-11-18 16:56] LABS: Glucose,Whole Blood 92 mg/dL (75-99)
--- NOTE | 2020-11-18 17:00 | CDI ---
Documentation Clarification Form Date: 11/18/2020 04:45:39 PM From: Ofelia Turk RN, CCDS Admit Date: 11/15/2020 08:04:00 PM Patient Name: Douglas Kruegr Visit Number: [id number] ATTENTION: The Clinical Documentation Specialists (CDI) and [facility] Coding Staff appreciate your assistance in clarifying documentation. Please respond to the clarification below the line at the bottom and electronically sign. The CDI & [facility] Coding staff will review the response and follow-up if needed. Please note: Queries are made part of the Legal Health Record. If you have any questions, please contact the author of this message via ITS. Dr. Carolyn Almanza PMH of CHF is documented in the ED note and Cardiology consult and requires further specificity. History/Risk Factors: Heart Failure, atrial Fibrillation, CVA, DM2, HLD, HTN, RACHELLE Clinical Indicators: 11/15 1706 Admission VS/Pulse OX: Temp 98.7, HR 116, RR 18, B/P 115/88, Spo2 95% RA BNP: not checked 11/16 Echocardiogram Results: EF 40-45%, mild mitral and tricuspid regurg Chest X Ray: Treatment: Lasix 40 mg P) QD Coreg 12.5 mg BID Apresoline 25 mg PO TID Zestril 40 mg PO QD In your professional opinion, can you please clarify the acuity and type of CHF if known? Chronic Systolic Heart Failure: Chronic Systolic & Diastolic Heart Failure: Unable to Determine Other, please specify prior history of CHF not in CHF now (Last Revision: December 2017) MTDD
--- NOTE | 2020-11-18 17:07 | CDI ---
Documentation Clarification Form Date: 11/18/2020 05:01:56 PM From: Ofelia Turk RN, CCDS Admit Date: 11/15/2020 08:04:00 PM Patient Name: Douglas Kruger Visit Number: [id number] ATTENTION: The Clinical Documentation Specialists (CDI) and [facility] Coding Staff appreciate your assistance in clarifying documentation. Please respond to the clarification below the line at the bottom and electronically sign. The CDI & [facility] Coding staff will review the response and follow-up if needed. Please note: Queries are made part of the Legal Health Record. If you have any questions, please contact the author of this message via ITS. Dr. Dashawn Sifuentes Anemia is documented in the 11/17 Cardiology progress note and requires further specificity. History/Risk Factors: CAD with PCI, AICD, VT, LV thrombus maintained on Coumadin, CVA, HTN, DM2, former nicotine dependence, ischemic cardiomyopathy Clinical indicators: Hemoglobin: 8.8/8.3/9 Hematocrit: 29.8/29.1/30.3 Treatment: Feosol 325 mg PO BID ASA 81 mg PO QD In order to capture the severity of condition, please clarify the type of anemia and etiology if known. Chronic blood loss anemia Iron deficiency anemia Drug induced anemia Nutritional anemia Anemia of chronic disease Unable to determine Other, please specify (Last Form Revision: November 2019) MTDD
--- NOTE | 2020-11-18 18:04 | PN ---
PROGRESS NOTE DATE OF SERVICE: 11/18/2020 CHIEF COMPLAINT: Ventricular arrhythmia. HISTORY OF PRESENT ILLNESS: This gentleman is doing well on amiodarone. He has had no further defibrillating episodes. PHYSICAL EXAMINATION: Chest is clear. Cardiac exam is normal. Abdomen is soft, nontender. IMPRESSION: Ventricular arrhythmia. PLAN: Cardiology apparently has further studies planned at this time, and he will not be going home today. MMODL / IJN: [id number] /
[2020-11-18 21:04] LABS: Glucose,Whole Blood 140 mg/dL (75-99)
[2020-11-19] MEDS: INSULIN ASPART (NovoLOG) 100 UNIT/ML VIAL SQ SCH ×2 (06:14→12:36)
[2020-11-19 06:29] LABS: Glucose,Whole Blood 113 mg/dL (75-99)
[2020-11-19] MEDS: carvediloL 12.5 MG TAB PO SCH (06:39)
[2020-11-19] MEDS: PANTOPRAZOLE 40 MG TABLET PO SCH (06:39)
--- NOTE | 2020-11-19 06:56 | CDI ---
Documentation Clarification Form 2nd Request Date: 11/18/2020 04:45:39 PM From: Ofelia Turk RN, CCDS Admit Date: 11/15/2020 08:04:00 PM Patient Name: Douglas Kruger Visit Number: [id number] ATTENTION: The Clinical Documentation Specialists (CDI) and [facility] Coding Staff appreciate your assistance in clarifying documentation. Please respond to the clarification below the line at the bottom and electronically sign. The CDI & [facility] Coding staff will review the response and follow-up if needed. Please note: Queries are made part of the Legal Health Record. If you have any questions, please contact the author of this message via ITS. Dr. Carolyn Almanza PMH of CHF is documented in the ED note and Cardiology consult and requires further specificity. History/Risk Factors: Heart Failure, atrial Fibrillation, CVA, DM2, HLD, HTN, RACHELLE Clinical Indicators: 11/15 1705 Admission VS/Pulse OX: Temp 98.7, HR 116, RR 18, B/P 115/88, Spo2 95% RA BNP: not checked 11/16 Echocardiogram Results: EF 40-45%, mild mitral and tricuspid regurg Chest X Ray: Treatment: Lasix 40 mg P) QD Coreg 12.5 mg BID Apresoline 25 mg PO TID Zestril 40 mg PO QD In your professional opinion, can you please clarify the acuity and type of CHF if known? Chronic Systolic Heart Failure: Chronic Systolic & Diastolic Heart Failure: Unable to Determine Other, please specify No evidence of active CHF on this admission (Last Revision: December 2017) MTDD
[2020-11-19 07:16] LABS: INR 1.6 (<1.2); Prothrombin Time 15.8 sec (9.0-12.0)
[2020-11-19 08:01] VITALS: TEMP 96.9
[2020-11-19] MEDS: FERROUS SULFATE 325 MG TAB PO SCH (08:13)
[2020-11-19] MEDS: AMIODARONE 200 MG TAB PO SCH (08:14)
[2020-11-19] MEDS: ATORVASTATIN 40 MG TAB PO SCH (08:14)
[2020-11-19] MEDS: ASPIRIN 81 MG PO SCH (08:14)
[2020-11-19] MEDS: lisinopriL 20 MG TAB PO SCH (08:14)
[2020-11-19] MEDS: LEFLUNOMIDE 20 MG TAB PO SCH (08:14)
[2020-11-19] MEDS: hydrALAZINE HCL 25 MG TAB PO SCH (08:14)
[2020-11-19] MEDS ORDERED: ASPIRIN 81 MG PO ONE (09:37)
[2020-11-19] MEDS ORDERED: fentaNYL (PF) 50 MCG/ML 2 ML AMP IVP ONE (10:12)
[2020-11-19] MEDS ORDERED: LIDOCAINE 1% INJ 10MG/ML (20 ML MDV) SQ ONE (10:12)
[2020-11-19] MEDS ORDERED: MIDAZOLAM 2 MG/2 ML VIAL IVP ONE (10:12)
[2020-11-19] MEDS ORDERED: VERAPAMIL SYRINGE (5 MG/10 ML) INTRAARTER ONE (10:12)
[2020-11-19] MEDS ORDERED: IV FLUID CONTINUATION 400 ML IV ONE (10:17)
[2020-11-19] MEDS ORDERED: IOPAMIDOL-370 125ML BTL INJ ONE (10:29)
[2020-11-19] MEDS ORDERED: RX INFO: IV CONTRAST WAS GIVEN 1 EACH MISC MISCELLANE PRN (10:46)
--- NOTE | 2020-11-19 10:52 | P.PCN ---
Date of Procedure: 11/19/20 Preoperative Diagnosis: Ventricular tachycardia, positive troponin and several shocks from ICD Postoperative Diagnosis: Stable coronary artery disease with patent stent in the mid LAD Procedure(s) Performed: Left heart catheterization without left ventriculography Description of Procedure: HISTORY: This is a 55-year-old gentleman with history of ischemic cardiomyopathy status post AICD was admitted to the hospital with recurrent shocks from the AICD and possible V. tach. Patient had positive troponin. Patient was evaluated by Dr. Almanza who recommended that patient have a cardiac catheterization CONSENT:I have discussed the risks, benefits and alternative therapies for the above-mentioned procedure and for both sedation/analgesia as well as necessary blood product administration, if indicated, as they pertain to this patient. The patient has indicated understanding and acceptance of the risks and procedures discussed. PROCEDURE: Patient was brought to the lab in a fasting state. Patient was given some IV sedation. The right wrist is infiltrated with lidocaine and right artery was entered using Seldinger technique. A 6-Frisian catheter was left in place and selective coronary arteriography was performed. Patient tolerated the procedure well. TR band was applied for hemostasis. No immediate complications were noted and patient was transferred to [facility] in a stable condition Conscious Sedation: Versed 1mg Fentanyl 25 g Duration 18minutes HEMODYNAMICS: The aortic pressure is 120/70. Left ventricular end-diastolic pressure is about 12. There was no gradient across the aortic valve SELECTIVE CORONARY ARTERIOGRAPHY: LEFT MAIN: Normal length and free of occlusive disease THE LEFT ANTERIOR DESCENDING CORONARY ARTERY:. Good caliber vessel with a patent stent in the mid LAD with about 2030% luminal narrowing. The rest of the vessel appears to be free of occlusive disease THE LEFT CIRCUMFLEX AND IS CORONARY ARTERY:. Nondominant vessel free of occlusive disease THE RIGHT CORONARY ARTERY: Dominant vessel free of occlusive disease. Good in caliber LEFT VENTRICULOGRAPHY: Not Performed FINAL IMPRESSION: Stable coronary artery disease with patent stent in the mid LAD. Mild in-stent stenosis. No other disease PLAN: Maximum medical therapy and this factor modification PROGNOSIS: Fair
[2020-11-19 10:54] LABS: Glucose,Whole Blood 104 mg/dL (75-99)
[2020-11-19] MEDS ORDERED: SODIUM CHLORIDE 0.9% 1,000 ML IV SCH (11:00)
[2020-11-19 12:26] LABS: Glucose,Whole Blood 175 mg/dL (75-99)
[2020-11-19] MEDS: FUROSEMIDE 40 MG TAB PO SCH (12:36)
[2020-11-19] MEDS: HYDROcodone/APAP 10-325MG 1 EACH TAB PO PRN ×2 (12:42→14:03)
[2020-11-19] MEDS: INSULN ASP PRT/INSULIN ASPART 100 UNIT/ML 10 ML VIAL SQ SCH (13:06)
[2020-11-19 13:34] VITALS: RESP 16
[2020-11-19 14:43] VITALS: BP 130/75; PULSE 67
[2020-11-19 16:27] LABS: Glucose,Whole Blood 130 mg/dL (75-99)
--- NOTE | 2020-11-19 22:36 | DS ---
DISCHARGE SUMMARY CHIEF COMPLAINT: Discharge of ICD. HISTORY OF PRESENT ILLNESS AND PHYSICAL EXAMINATION: Details of this man's history and physical can be found in the initial workup. LABORATORY STUDIES: While he was in the hospital he had laboratory studies, details of which can be found in the laboratory section of his chart. COURSE IN THE HOSPITAL: After admission he was placed on bedrest and seen by Cardiology. He had a slight elevation in one troponin. He was anticoagulated and started on amiodarone. Rhythm was well maintained and he was doing well. Further studies were considered, but he was doing well and it was felt that he could be discharged on 11/19. He will go home on his usual activity, diet and medication, and he will be on amiodarone 200 mg twice a day. He will be seen in the office in several days. FINAL DIAGNOSES: 1. Episodes of ventricular tachycardia with discharge of ICD. 2. History of hypertension. 3. Chronic obstructive pulmonary disease. 4. Unexplained pain in the right low back and hip girdle area. OPERATIONS: None. CONSULTATION: Cardiology. He is improved. MMODL / IJN: [id number] /
--- NOTE | 2020-11-27 12:37 | MISC ---
MISCELLANOUS REPORT QUERY: Unable to determine. MMODL / IJN: [id number] /
== END 2020-11-19 16:53 | disposition home or self-care (01) | DRG 287 ==
LOC: EC 17:05 → 3SCARD 20:04
PROVIDERS: ADMIT Family Medicine; ATTEND Family Medicine
PROC: B2111ZZ Fluoroscopy of Multiple Coronary Arteries using Low Osmolar Contrast (ICD-10-PCS; 2020-11-19)
PROC: 4A023N7 Measurement of Cardiac Sampling and Pressure, Left Heart, Percutaneous Approach (ICD-10-PCS; principal; 2020-11-19 11:00)
DX: I47.2 Ventricular tachycardia (principal); D68.9 Coagulation defect, unspecified; J98.11 Atelectasis; E11.42 Type 2 diabetes mellitus with diabetic polyneuropathy; Z79.4 Long term (current) use of insulin; I48.91 Unspecified atrial fibrillation; J44.9 Chronic obstructive pulmonary disease, unspecified; M06.9 Rheumatoid arthritis, unspecified; Z20.822 Contact with and (suspected) exposure to COVID-19; G47.30 Sleep apnea, unspecified; E78.5 Hyperlipidemia, unspecified; M19.90 Unspecified osteoarthritis, unspecified site; I10 Essential (primary) hypertension; M25.551 Pain in right hip; F17.200 Nicotine dependence, unspecified, uncomplicated; I25.10 Atherosclerotic heart disease of native coronary artery without angina pectoris; I25.5 Ischemic cardiomyopathy; I08.3 Combined rheumatic disorders of mitral, aortic and tricuspid valves; D64.9 Anemia, unspecified; M54.5 Low back pain; Z79.899 Other long term (current) drug therapy; Z79.01 Long term (current) use of anticoagulants; Z86.73 Personal history of transient ischemic attack (TIA), and cerebral infarction without residual deficits; Z95.810 Presence of automatic (implantable) cardiac defibrillator; Z95.5 Presence of coronary angioplasty implant and graft
CPT/HCPCS: 36415; 71045; 80048; 80053; 80061; 83735; 84484; 85025; 85027; 85610; 85730; 87635; 93005; 93306; 93458; 94760; 96365; 99291

== ENCOUNTER 2021-01-04 10:39 | Day surgery (SDC) | payer OTHER ==
[2020-12-28 16:28] VITALS: BMI 36.1
[~2021-01-04 10:39] MED LIST changes: +DEXAMETHASONE SOD PHOSPHATE 4 MG/ML 1 ML VIAL IV ONE; +HYDROmorphone 0.5 MG/0.5 ML SYRINGE IVP PRN; +LACTATED RINGERS 1,000 ML IV SCH; +LIDOCAINE 1% (10MG/ML) FOR IV START INTRADERMA PRN; +MIDAZOLAM 2 MG/2 ML VIAL IV PRN; +ONDANSETRON 4 MG/2 ML VIAL IVP ONE; -SIMETHICONE 40 MG/0.6 ML DROPS 2,000 MG/30 ML BOTTLE PO ONE; +SODIUM CHLORIDE 0.9% 1,000 ML IV SCH
[2021-01-04 12:13] LABS: Glucose,Whole Blood 83 mg/dL (75-99)
[2021-01-04] MEDS ORDERED: SUCCINYLCHOLINE CHLORIDE 100 MG/5 ML SYR IV ONE (13:28)
[2021-01-04] MEDS ORDERED: HYDROmorphone (PF) 1 MG/ML ONE (13:28)
[2021-01-04] MEDS ORDERED: MIDAZOLAM 2 MG/2 ML VIAL ONE (13:28)
[2021-01-04] MEDS ORDERED: fentaNYL (PF) 50 MCG/ML 2 ML AMP ONE (13:28)
[2021-01-04] MEDS ORDERED: LIDOCAINE 1% INJ 10MG/ML (20 ML MDV) ONE ×2 (13:28→13:42)
[2021-01-04] MEDS ORDERED: ISOPROTERENOL 250 MCG/1.25 ML SYR IV ONE (13:28)
[2021-01-04] MEDS ORDERED: PROPOFOL 10 MG/ML 20 ML VIAL IV ONE (13:28)
[2021-01-04] MEDS ORDERED: LIDOCAINE 1% INJ 10MG/ML (20 ML MDV) SQ ONE (14:08)
--- NOTE | 2021-01-04 15:59 | P.PRLE ---
RE: Douglas Kruger Dear Dr. Sifuentes Patient underwent a diagnostic EP study to evaluate for SVT which is resulting in inappropriate ICD shocks. We performed a detailed EP study both on and off Isuprel On high-dose Isuprel we were able to induce an atrial tachycardia but was nonsustained and seemed to be originating in the right atrium This was a brief episode and could not be reproduced at all despite multiple attempts At this point we'll simply continue medical treatment but I would recommend the following Reduce amiodarone to 200 mg by mouth daily Increase carvedilol to 25 mg twice daily Stop hydralazine Thank you for entrusting me with the care of the patient Warm regards Sincerely Tristan Cheney
[2021-01-04] MEDS ORDERED: ACETAMINOPHEN IV (For NPO) 1,000 MG in EMPTY BAG 1 BAG IVPB ONE (16:00)
[2021-01-04] MEDS ORDERED: IV FLUID CONTINUATION 1,000 ML IV ONE ×2 (16:21)
[2021-01-04 16:32] LABS: Glucose,Whole Blood 84 mg/dL (75-99)
[2021-01-04] MEDS ORDERED: ACETAMINOPHEN IV (For NPO) 1,000 MG/100 ML VIAL IVPB ONE (16:45)
[2021-01-04] MEDS: carvediloL 12.5 MG TAB PO SCH (18:11)
[2021-01-04 20:33] LABS: Glucose,Whole Blood 170 mg/dL (75-99)
[2021-01-04] MEDS ORDERED: INSULN ASP PRT/INSULIN ASPART 100 UNIT/ML 10 ML VIAL SQ SCH (21:00)
[2021-01-04] MEDS: VARENICLINE 1 MG TAB PO SCH (21:30)
[2021-01-04] MEDS: ACETAMINOPHEN TAB 325 MG TAB PO PRN (21:55)
[2021-01-05 02:35] VITALS: TEMP 97.7
[2021-01-05] MEDS: ACETAMINOPHEN TAB 325 MG TAB PO PRN (02:57)
[2021-01-05 07:03] LABS: Glucose,Whole Blood 72 mg/dL (75-99)
[2021-01-05] MEDS: carvediloL 12.5 MG TAB PO SCH (08:04)
[2021-01-05] MEDS: VARENICLINE 1 MG TAB PO SCH (08:06)
[2021-01-05] MEDS ORDERED: LEFLUNOMIDE 20 MG TAB PO SCH (09:00)
[2021-01-05] MEDS ORDERED: ATORVASTATIN 40 MG TAB PO SCH (09:00)
[2021-01-05] MEDS ORDERED: PANTOPRAZOLE 40 MG TABLET PO SCH (09:00)
[2021-01-05] MEDS ORDERED: FUROSEMIDE 40 MG TAB PO SCH (09:00)
[2021-01-05] MEDS ORDERED: lisinopriL 20 MG TAB PO SCH (09:00)
[2021-01-05] MEDS ORDERED: INSULN ASP PRT/INSULIN ASPART 100 UNIT/ML 10 ML VIAL SQ SCH (09:00)
[2021-01-05] MEDS ORDERED: AMIODARONE 200 MG TAB PO SCH (09:00)
[2021-01-05] MEDS ORDERED: amLODIPine 10 MG TAB PO SCH (09:00)
[2021-01-05] MEDS ORDERED: ASPIRIN 81 MG PO SCH (09:00)
[2021-01-05] MEDS ORDERED: sulfaSALAzine 500 MG TAB PO SCH (09:00)
[2021-01-05 09:29] VITALS: BP 130/91; PULSE 63; RESP 16
--- NOTE | 2021-01-05 10:53 | DS ---
DISCHARGE SUMMARY Mr. Kruger is a 55-year-old male patient of Dr. Camarillo who has had tachycardia consistent with SVT and inappropriate ICD shock. He is brought in for diagnostic EP study and we were able to induce only 1 brief run of nonsustained atrial tachycardia. This was a brief nonsustained run that appeared to be originating from the high right atrium. However, despite a detailed EP study on and off Isuprel and high-dose Isuprel, the tachycardia could not be reproduced again. He was monitored overnight. He has had no problems and groins have healed well. Heart sounds are normal. Breath sounds are clear. Vitals are stable on the higher dose of carvedilol. IMPRESSION: History of cardiomyopathy and single-chamber ICD. I have reprogrammed his ICD for monitor zone of 150 beats per minute, VT zone 176 beats per minute, zone at 222 beats per minute. Appropriate antitachycardia pacing cardioversion defibrillation were programmed. Enhancements were programmed. The dose of amiodarone was reduced to 200 mg p.o. daily. The dose of carvedilol was increased to 25 mg twice daily. His blood pressure is in the normal range on the higher dose. PLAN: Plan is to discharge him today in the next few hours after ambulating in the hallways and he will follow up with Dr. Camarillo in about a week. In the future, I will suggest reducing the dose of amiodarone to 100 mg p.o. daily and perhaps even considering discontinuing it completely and relying on beta blockers for atrial tachycardia management. The dose of carvedilol has been increased to 25 mg twice daily and hydralazine has been discontinued. MMODL / IJN: [id number] /
--- NOTE | 2021-01-05 14:13 | PN ---
PROGRESS NOTE CHIEF COMPLAINT: Palpitations. HISTORY OF PRESENT ILLNESS: This gentleman is doing well after his procedure yesterday. He expects to go home. He is still complaining of a lot of discomfort in the right hip and leg, which is old. PHYSICAL EXAMINATION: Chest is clear. Cardiac exam is normal. Abdomen is soft, nontender. IMPRESSION: 1. Atherosclerotic cardiovascular disease. 2. Arrhythmia. 3. Right hip and thigh pain, etiology unknown. PLAN: Progress activity and he will probably go home today. MMODL / IJN: [id number] /
--- NOTE | 2021-01-05 15:12 | CONS ---
CONSULTATION CHIEF COMPLAINT: Palpitations. HISTORY OF PRESENT ILLNESS: This 55-year-old, male was brought in for an elective procedure by Dr. Cheney. He also has been having a lot of difficulty with pain in the right hip and thigh area without etiology. He has been found to have herniated disk disease in LS spine and this is being evaluated as an outpatient. REVIEW OF SYSTEMS: He has had no neurologic problems, chest pain, orthopnea, PND, abdominal pain, nausea, vomiting, melena, hematochezia, jaundice, hepatitis, renal failure, etc. Past medical history, family history and personal and social histories reveal that he is trying Chantix to help stop smoking and he is on warfarin 2.5 once a day. He takes Humalog 75/25 at 50 in the morning and 40 units at night. He takes amiodarone 200 mg once a day. He is also on lisinopril 20 mg twice a day, carvedilol 12.5 twice a day, atorvastatin 40 once a day, 81 mg of aspirin, furosemide 40 mg once a day, hydralazine 25 mg t.i.d., amlodipine 10 mg once a day, Vicodin p.r.n., vitamin D and omeprazole. He is also on leflunomide 20 mg once a day. The remainder of his history is unremarkable. He used to smoke but does not any longer. PHYSICAL EXAMINATION: Blood pressure is 128/72 with a pulse of 65, respirations of 17 and he is afebrile. In general, he appeared to be well developed, well nourished, in no acute distress. Skin color is normal. Skin is warm, dry. Lymph nodes are not enlarged. Head, ears, eyes, nose, mouth and throat are normal. Neck veins are not distended. Thyroid is not enlarged. Chest is clear. Cardiac exam demonstrates slightly irregularly, irregular rhythm with no murmurs or extra sounds. Abdomen is soft, nontender. Extremities are normal. IMPRESSION: 1. History of palpitations. 2. Insulin-dependent diabetes mellitus. 3. Hypertension. RECOMMENDATIONS: None at this time. MMODL / IJN: [id number] /
--- NOTE | 2021-01-13 20:06 | CE ---
CARDIAC ELECTROPHYSIOLOGY REPORT Mr. Kruger is a 55-year-old male patient who received an inappropriate ICD shock for SVT. He was brought in for an EP study and possible radiofrequency ablation. Patient was brought to the EP lab in a fasting state. Written informed consent was obtained prior to the procedure. He received IV antibiotics perioperatively. The ICD was interrogated and reprogrammed and tachy therapies were turned off. Venous sheaths were placed in the right and left femoral veins, and via these diagnostic catheters were placed in the high right atrium, coronary sinus, his bundle area and right ventricle. Sinus cycle length 822 milliseconds, MT interval 157 milliseconds, QRS 86 milliseconds, QT 414 milliseconds. AH interval 105 milliseconds and HV interval 35 milliseconds. Sinus node recovery times at a paced cycle length of 600 and 500 milliseconds were 800 and 820 milliseconds. AV node Wenckebach block 300 milliseconds. Atrial ERP 600/240 milliseconds and 600/240/260 milliseconds. VA Wenckebach block 360 milliseconds. Burst stimulation was performed from the high right atrium for 400 milliseconds down to 200 milliseconds. This was repeated from the coronary sinus. No arrhythmias were induced. Isuprel was then started at a high dose and atrial extrastimulation was performed after triple extrastimuli from the high right atrium and from the coronary sinus. There was one brief episode of atrial tachycardia at a cycle length of 250 milliseconds with aberrancy, with right bundle branch block pattern. This was nonsustained. This could not be reproduced again. This testing was performed at low-dose Isuprel, high-dose Isuprel as well as during partial. Burst stimulation and extrastimulation were performed from the coronary sinus as well as from the high right atrium. No further episodes of atrial tachycardia could be induced. All sheaths were removed at the end of the procedure and the ICD was reprogrammed after interrogation at the end of the procedure. The patient was transferred to telemetry. RESULT: 1. Diagnostic EP study showing normal sinus node function. 2. Normal AV node function. 3. No evidence for AV bert reentry. 4. No evidence for accessory pathway conduction. 5. One run of nonsustained atrial tachycardia with a high to low pattern, but this was nonsustained and could not be reproduced. No other arrhythmia was induced. PLAN: Continue beta blockers and stop amiodarone. MMODL / IJN: [id number] /
== END 2021-01-05 10:47 | disposition home or self-care (01) ==
LOC: CATHEP 10:39 → 6NMEDSUR 17:06 → CATHEP 01-05 10:47
PROVIDERS: ATTEND Internal Medicine Clinical Cardiac Electrophysiology
DX: T82.198A Other mechanical complication of other cardiac electronic device, initial encounter (principal); I47.1 Supraventricular tachycardia; I25.5 Ischemic cardiomyopathy; I25.10 Atherosclerotic heart disease of native coronary artery without angina pectoris; T82.855A Stenosis of coronary artery stent, initial encounter; Z86.718 Personal history of other venous thrombosis and embolism; I10 Essential (primary) hypertension; E78.5 Hyperlipidemia, unspecified; E11.9 Type 2 diabetes mellitus without complications; Z72.0 Tobacco use; Z79.82 Long term (current) use of aspirin; Z79.4 Long term (current) use of insulin; Z79.899 Other long term (current) drug therapy
CPT/HCPCS: 93623; 93620; C1894; C1769 ×2; C1730; J2250; J2001; J3010; J1170; J0131; J0330; J2704

== ENCOUNTER → 2021-02-02 | Outpatient (CLI) | payer OTHER ==
[2021-02-02 11:19] VITALS: BP 136/77; PULSE 71; RESP 20; TEMP 97.7
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
== END ==
LOC: PNWHC3 10:31
PROVIDERS: ATTEND Hospitalist
DX: M51.16 Intervertebral disc disorders with radiculopathy, lumbar region (principal); E11.9 Type 2 diabetes mellitus without complications; I48.91 Unspecified atrial fibrillation; E78.5 Hyperlipidemia, unspecified; M19.90 Unspecified osteoarthritis, unspecified site; I10 Essential (primary) hypertension; Z86.73 Personal history of transient ischemic attack (TIA), and cerebral infarction without residual deficits; Z87.891 Personal history of nicotine dependence; Z95.5 Presence of coronary angioplasty implant and graft; Z79.4 Long term (current) use of insulin; Z79.899 Other long term (current) drug therapy; Z79.82 Long term (current) use of aspirin
CPT/HCPCS: 99211

== ENCOUNTER 2021-02-22 06:39 | Day surgery (SDC) | payer OTHER ==
[~2021-02-22 06:39] MED LIST changes: -DEXAMETHASONE SOD PHOSPHATE 4 MG/ML 1 ML VIAL IV ONE; -HYDROmorphone 0.5 MG/0.5 ML SYRINGE IVP PRN; -LIDOCAINE 1% (10MG/ML) FOR IV START INTRADERMA PRN; -MIDAZOLAM 2 MG/2 ML VIAL IV PRN; -ONDANSETRON 4 MG/2 ML VIAL IVP ONE; -SODIUM CHLORIDE 0.9% 1,000 ML IV SCH
[2021-02-22 07:25] LABS: Glucose,Whole Blood 117 mg/dL (75-99)
[2021-02-22 07:36] VITALS: TEMP 97.8
[2021-02-22] MEDS ORDERED: fentaNYL (PF) 50 MCG/ML 2 ML AMP IVP ONE (09:43)
[2021-02-22 09:44] LABS: Prothrombin Time 10.7 sec (9.0-12.0)
[2021-02-22] MEDS ORDERED: fentaNYL (PF) 50 MCG/ML 2 ML AMP ONE (10:08)
[2021-02-22] MEDS ORDERED: MIDAZOLAM 2 MG/2 ML VIAL ONE (10:08)
[2021-02-22] MEDS ORDERED: IOPAMIDOL M200 10 ML VIAL ONE (10:08)
[2021-02-22] MEDS ORDERED: methylPREDNISolone ACETATE 40 MG/ML 1 ML VIAL ONE (10:08)
--- NOTE | 2021-02-22 10:27 | P.PCN ---
Date of Procedure: 02/22/21 Procedure(s) Performed: PREOPERATIVE DIAGNOSIS: 1-Lumbar radiculopathy . 2-lumbar degenerative disc disease POSTOPERATIVE DIAGNOSIS: Same as preoperative diagnoses. PROCEDURE 1. Transforaminal epidural steroid injection under fluoroscopic guidance at right L5-S1 level. (Fluoroscopy images stored on file in the radiology Department ) 2. Lumbar epidurogram . ANESTHESIA: Local with 1% lidocaine 3 ml , moderate sedation with intravenous Versed 2 mg and fentanyle 100 micrograms. EBL: Minimal PROCEDURE INDICATION: The patient with low back pain and radiculopathy symptoms unresponsive to conservative treatment. PROCEDURE DESCRIPTION / TECHNIQUE: The patient was seen and identified in the preoperative area. Risks, benefits, complications, and alternatives were discussed with the patient. The patient agreed to proceed with the procedure and signed the consent. IV was started, and vital signs were stable. Patient was taken to the OR and time out was completed. The patient was placed in the prone position on procedure table and a pillow was placed under the abdomen to reduce lumbar lordosis. The lumbosacral area was prepped and draped in the usual sterile fashion. Critical pause was taken. Vital signs were closely monitored during the procedure. Conscious sedation was used during the procedure to decrease patient s anxiety. Using oblique fluoroscopy, the chin of the ``Miles dog at right L5-S1 level was identified, and the skin and deeper tissues just below was localized with 1% lidocaine. Subsequently, a 22-gauge 5-inch spinal needle was advanced under a tunneled view fluoroscopic guidance just underneath the chin of the ``Miles dog at the right L5-S1 Under lateral fluoroscopy, the needle was then advanced to the posterior border of the interforaminal space. After negative aspiration of CSF and blood and with no paresthesias, 1 mL Isovue 200 contrast dye was injected excellent epidurogram and outlining of the nerve root Subsequently, 3 mL of block solution containing 40 mg Depo-Medrol and 2 mL of 0.9% normal saline PF was injected. Needle was removed . At the end of the procedure, skin was cleansed, and bandages were applied. COMPLICATIONS:none DISPOSITION / PLANS: The patient was placed in a supine position and transferred to the recovery area in a stable condition for observation. There was no evidence of lower extremity motor or sensory deficit after the procedure. Patient was discharged from the recovery room after meeting discharge criteria. Home discharge instructions were given to the patient by the staff. The patient was reexamined prior to discharge. note =he is currently on on Coumadin and his PT/INR today was 1, will resume his Coumadin today note= we requested to do right-sided transforaminal epidural at L4 5 and L5-S1, his insurance is approved only one level to be done
[2021-02-22] MEDS ORDERED: IV FLUID CONTINUATION 1,000 ML IV ONE (10:30)
[2021-02-22 10:33] VITALS: RESP 16
[2021-02-22 10:54] VITALS: BP 114/77; PULSE 61
--- NOTE | 2021-02-22 11:45 | FL ---
EXAMINATION TYPE: FL guided pain mgmt statistic DATE OF EXAM: 02/22/2021 CLINICAL HISTORY: Low back pain. TECHNIQUE: Fluoroscopy. COMPARISON: None. FINDINGS: Fluoroscopic guidance was provided during pain relief procedure performed by Dr. Juarez . A total of 7 seconds of fluoroscopic time was utilized during the procedure and 1 spot images are acquired. Single limits acquired shows needle localization at L5 level off the midline. IMPRESSION: As Above.
== END 2021-02-22 11:17 | disposition home or self-care (01) ==
LOC: ORPAIN 06:39
PROVIDERS: ATTEND Specialist
DX: M51.16 Intervertebral disc disorders with radiculopathy, lumbar region (principal); Z79.01 Long term (current) use of anticoagulants
CPT/HCPCS: 85610; 64483; J2250; J1030; J3010; Q9966; 99152

== ENCOUNTER → 2021-03-23 | Outpatient (CLI) | payer OTHER ==
[2021-03-23 11:34] VITALS: BP 102/71; PULSE 70; RESP 18; TEMP 98.2
--- NOTE | 2021-03-23 13:09 | P.PN ---
Subjective Progress Note Date: 03/23/21 This is follow-up visit for this a 55-year-old gentleman CT of low back pain with radiation to the right lower extremity he stayed close with lumbar radiculopathy and lumbar degenerative disc disease mostly would have done a right-sided transforaminal epidural steroid injection at the L5-S1 , patient had short-term benefit from it and he continued to have severe low back pain with radiation to the right lower extremity associated with numbness and tingling sensation. He has had a CT myelogram done because his insurance company would not pay for a MRI of the lumbar spine. At this point his symptoms have progressed, he has right lower extremity weakness, numbness, tingling, radicular symptoms that are severe in nature. He denies any bowel or bladder incontinence. He's never had any injections in his back. He's not had any neuropathic pain medications. He's been unable to walk without alone participate in physical therapy. 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 CT myelogram done at [facility] shows right lateral recess stenosis at L4 5 and L5-S1. There is no mention of any high-grade central stenosis. Physical examination General: Awake and alert oriented 3 , moderate distress Respiratory exam: No audible wheezing no accessory muscle usage Cardiovascular exam: Tachycardic, palpable bilateral pulses, no lower extremity edema Cervical spine: Normal alignment, Spurling's negative, facet loading negative, Vamp Creaser strength is 5/5, dietrich negative Lumbar spine: Difficult to fully assess the lumbar spine due to the patient's distress. He is in a forward flexed body position, there is loss of lordosis. Movement of the right leg causes severe pain. He has weakness in the hip flexors, quadriceps and he also anterior muscles on the right side. Sacroiliac joints unable to assess secondary to right leg pain Neuro exam: Normal sensation in bilateral upper extremities, deep tendon reflexes are 2+ bilateral upper extremities. Normal sensation in bilateral lower extremities. Deep tendon reflexes are 2+ in the left lower extremity, right patellar reflexes 1+, right Achilles is 1+. Psych exam: Anxious complaining of severe pain Assessment and Plan Assessment: 1 acute lumbar radiculitis #2 lumbar degenerative disc disease #3 diabetes Dishing could benefit from a right-sided transforaminal epidural steroid injections at L5-S1 (he had to hold Coumadin for 5 days before the procedure) Objective - Vital Signs Vital signs: Vital Signs Temp 98.2 F 03/23/21 11:30 Pulse 70 03/23/21 11:30 Resp 18 03/23/21 11:30 BP 102/71 03/23/21 11:30 Pulse Ox 95 03/23/21 11:30 Intake & Output 03/22/21 03/23/21 03/23/21 18:59 06:59 18:59 Weight 98.43 kg
== END ==
LOC: PNWHC3 11:04
PROVIDERS: ATTEND Specialist
DX: M51.16 Intervertebral disc disorders with radiculopathy, lumbar region (principal); E11.9 Type 2 diabetes mellitus without complications; F17.200 Nicotine dependence, unspecified, uncomplicated
CPT/HCPCS: 99211

== ENCOUNTER 2021-05-05 13:08 | Day surgery (SDC) | payer OTHER ==
[2021-05-04 09:30] VITALS: BMI 36.9
[2021-05-05 13:40] VITALS: RESP 18; TEMP 97.8
[2021-05-05] MEDS ORDERED: LACTATED RINGERS 1,000 ML IV ONE (13:41)
[2021-05-05] MEDS ORDERED: LIDOCAINE 1% (10MG/ML) FOR IV START INTRADERMA ONE (13:41)
[2021-05-05 13:42] LABS: Glucose,Whole Blood 84 mg/dL (75-99)
[2021-05-05 14:11] LABS: INR 1.4 (<1.2)
[2021-05-05] MEDS ORDERED: IOPAMIDOL M200 10 ML VIAL ONE (14:19)
[2021-05-05] MEDS ORDERED: methylPREDNISolone ACETATE 40 MG/ML 1 ML VIAL ONE (14:19)
[2021-05-05] MEDS ORDERED: fentaNYL (PF) 50 MCG/ML 2 ML AMP ONE (14:19)
[2021-05-05] MEDS ORDERED: MIDAZOLAM 2 MG/2 ML VIAL ONE (14:19)
--- NOTE | 2021-05-05 14:33 | P.PCN ---
Date of Procedure: 05/05/21 Procedure(s) Performed: PREOPERATIVE DIAGNOSIS: 1-Lumbar radiculopathy . 2-lumbar degenerative disc disease POSTOPERATIVE DIAGNOSIS: Same as preoperative diagnoses. PROCEDURE 1. Transforaminal epidural steroid injection under fluoroscopic guidance at right L5-S1 level. (Fluoroscopy images stored on file in the radiology Department ) 2. Lumbar epidurogram . ANESTHESIA: Local with 1% lidocaine 3 ml , moderate sedation with intravenous Versed 2 mg and fentanyle 100 micrograms. EBL: Minimal PROCEDURE INDICATION: The patient with low back pain and radiculopathy symptoms unresponsive to conservative treatment. PROCEDURE DESCRIPTION / TECHNIQUE: The patient was seen and identified in the preoperative area. Risks, benefits, complications, and alternatives were discussed with the patient. The patient agreed to proceed with the procedure and signed the consent. IV was started, and vital signs were stable. Patient was taken to the OR and time out was completed. The patient was placed in the prone position on procedure table and a pillow was placed under the abdomen to reduce lumbar lordosis. The lumbosacral area was prepped and draped in the usual sterile fashion. Critical pause was taken. Vital signs were closely monitored during the procedure. Conscious sedation was used during the procedure to decrease patient s anxiety. Using oblique fluoroscopy, the chin of the ``Miles dog at right L5-S1 level was identified, and the skin and deeper tissues just below was localized with 1% lidocaine. Subsequently, a 22-gauge 5-inch spinal needle was advanced under a tunneled view fluoroscopic guidance just underneath the chin of the ``Miles dog at the right L5-S1 Under lateral fluoroscopy, the needle was then advanced to the posterior border of the interforaminal space. After negative aspiration of CSF and blood and with no paresthesias, 1 mL Isovue 200 contrast dye was injected excellent epidurogram and outlining of the nerve root Subsequently, 3 mL of block solution containing 40 mg Depo-Medrol and 2 mL of 0.9% normal saline PF was injected. Needle was removed . At the end of the procedure, skin was cleansed, and bandages were applied. COMPLICATIONS:none DISPOSITION / PLANS: The patient was placed in a supine position and transferred to the recovery area in a stable condition for observation. There was no evidence of lower extremity motor or sensory deficit after the procedure. Patient was discharged from the recovery room after meeting discharge criteria. Home discharge instructions were given to the patient by the staff. The patient was reexamined prior to discharge. note =he is currently on on Coumadin and his PT/INR today was 1.4 , will resume his Coumadin today
[2021-05-05] MEDS ORDERED: IV FLUID CONTINUATION 1,000 ML IV ONE (14:44)
[2021-05-05 14:45] VITALS: PULSE 70
[2021-05-05 15:00] VITALS: BP 116/79
--- NOTE | 2021-05-05 17:15 | FL ---
EXAMINATION TYPE: FL guided pain mgmt statistic DATE OF EXAM: 05/05/2021 FLUOROSCOPY Fluoroscopy time of 17 seconds was used during lumbar transforaminal injection. 1 image/s document/s the procedure.
== END 2021-05-05 15:14 | disposition home or self-care (01) ==
LOC: ORPAIN 13:08
PROVIDERS: ATTEND Specialist
DX: M51.36 Other intervertebral disc degeneration, lumbar region (principal); M54.16 Radiculopathy, lumbar region
CPT/HCPCS: 85610; 64483; J2250; J1030; J3010; Q9966; 99152

== ENCOUNTER → 2021-06-13 | Outpatient (CLI) | payer OTHER ==
[2021-06-13 10:38] VITALS: BP 109/74; PULSE 63; RESP 18
--- NOTE | 2021-06-13 10:58 | P.PN ---
Subjective Progress Note Date: 06/13/21 This is a 55-year-old gentleman with history of stroke and right leg pain. The patient denies any pain in the lower back area however he has pain in the leg which goes all the way down to his foot with numbness and tingling in no specific radicular distribution. His computed tomography scan of the lumbar spine showed neural foraminal stenosis at the L5-S1 level due to disc herniation. It also showed moderate degenerative disc disease. The patient had physical therapy 2 months ago which has not provided any pain relief as he states. He also seemed transforaminal epidural steroid injection at the L5-S1 level twice which also did not give him good pain relief. He feels that he is getting weaker than his right leg. He is on a daily dose of Coumadin. Patient denies new-onset weakness, bowel/bladder incontinence, or any other signs or symptoms of cauda equina syndrome. There are no signs of acute intoxication, and no indications of medication diversion or overuse. In addition to above, 13-point review of systems is also negative for chest pain, shortness of breath, changes in vision, changes in hearing, new onset weakness, abdominal pain, diarrhea, extreme fatigue, malaise, fever, skin changes, homicidal or suicidal ideation, or bowel or bladder incontinence. Vital Signs: Reviewed in EMR Gen: AAOx3, NAD HEENT: PERRLA,hearing grossly normal Pulm: resp unlabored Neck: supple, trachea midline Neuro exam of the lower extremities: Areflexia bilaterally and symmetrically, decreased muscle strength to 4 out of 5 for knee flexion and extension and ankle flexion and extension bilaterally and symmetrically. Straight leg raising test: Negative bilaterally Osei's test: Range of motion of the lumbar spine: Facet loading test: Tenderness in the paravertebral musculature: No tenderness in the lumbar area Neuro: CN II-XII grossly intact, Imaging: Reviewed in EMR/chart Assessment: Lumbar stenosis and right radiculopathy due to disc herniation Treatment with Coumadin for history of CVA Diabetes Plan: 1. Explanation: When patients on opioids, opioid and psychological risk scores were reviewed. Diagnoses, prognoses, and multiple treatment options including but not limited to physical therapy, interventional therapies, adjuvant medical therapies, narcotic medication therapies, and surgery were discussed with the patient and all questions were answered to the patient's satisfaction. 2. Opioid agreement:When patients are prescribed opoids through our clinic, opioid agreement is signed with the patient and the patient is warned not to use opioids while driving or before driving and not to combine opioids with benzodiazepines or alcohol. 3. Counseling: When patient is smoking or obese, the patient was counseled extensively on SMOKING CESSATION, BODY MASS INDEX, EXERCISE. Specifically, the patient was instructed regarding the importance of smoking cessation, obesity, and exercise in the context of both chronic pain and overall health. 4. Procedures: We will try interlaminar epidural steroid injection on the right paramedian approach at the L5-S1 level and there is no improvement in his pain then he will have to go back and see his back surgeon especially with what seems to be progressive weakness in the right leg. 5. Consultations: None 6. Investigations: None 7. Medications: The patient takes [place] from his primary care physician 8. Disposition: Proceed with the above-mentioned procedure as soon as possible. The patient will hold his Coumadin for 5 days before the procedure and we will do aPT/ INR on the day or procedure. 9. Maps were reviewed and were appropriate. Objective - Vital Signs Vital signs: Vital Signs Temp Pulse 63 06/13/21 10:35 Resp 18 06/13/21 10:35 BP 109/74 06/13/21 10:35 Pulse Ox 97 06/13/21 10:35
== END ==
LOC: PNWHC3 10:23
PROVIDERS: ATTEND Anesthesiology
DX: M51.16 Intervertebral disc disorders with radiculopathy, lumbar region (principal); M48.061 Spinal stenosis, lumbar region without neurogenic claudication; E11.9 Type 2 diabetes mellitus without complications; Z86.73 Personal history of transient ischemic attack (TIA), and cerebral infarction without residual deficits; Z79.01 Long term (current) use of anticoagulants; Z79.4 Long term (current) use of insulin
CPT/HCPCS: 99211

== ENCOUNTER 2021-07-21 06:45 | Day surgery (SDC) | payer OTHER ==
[2021-07-20 10:05] VITALS: BMI 39.1
[2021-07-21] MEDS ORDERED: LIDOCAINE 1% (10MG/ML) FOR IV START INTRADERMA ONE (07:40)
[2021-07-21 07:42] LABS: Glucose,Whole Blood 136 mg/dL (75-99)
[2021-07-21 08:00] VITALS: TEMP 97
[2021-07-21 08:05] LABS: INR 1.1 (<1.2); Prothrombin Time 11.5 sec (9.0-12.0)
[2021-07-21] MEDS ORDERED: fentaNYL (PF) 50 MCG/ML 2 ML AMP ONE (08:15)
[2021-07-21] MEDS ORDERED: MIDAZOLAM 2 MG/2 ML VIAL ONE (08:15)
[2021-07-21] MEDS ORDERED: IOPAMIDOL M200 10 ML VIAL ONE (08:15)
[2021-07-21] MEDS ORDERED: methylPREDNISolone ACETATE 40 MG/ML 1 ML VIAL ONE (08:15)
--- NOTE | 2021-07-21 08:30 | P.PCN ---
Date of Procedure: 07/21/21 Procedure(s) Performed: PREOPERATIVE DIAGNOSIS: 1-Lumbar radiculopathy . 2-lumbar degenerative disc disease POSTOPERATIVE DIAGNOSIS: Same as preoperative diagnoses. PROCEDURE 1. Transforaminal epidural steroid injection under fluoroscopic guidance at right L5-S1 level. (Fluoroscopy images stored on file in the radiology Department ) 2. Lumbar epidurogram . ANESTHESIA: Local with 1% lidocaine 3 ml , moderate sedation with intravenous Versed 2 mg and fentanyle 100 micrograms. EBL: Minimal PROCEDURE INDICATION: The patient with low back pain and radiculopathy symptoms unresponsive to conservative treatment. PROCEDURE DESCRIPTION / TECHNIQUE: The patient was seen and identified in the preoperative area. Risks, benefits, complications, and alternatives were discussed with the patient. The patient agreed to proceed with the procedure and signed the consent. IV was started, and vital signs were stable. Patient was taken to the OR and time out was completed. The patient was placed in the prone position on procedure table and a pillow was placed under the abdomen to reduce lumbar lordosis. The lumbosacral area was prepped and draped in the usual sterile fashion. Critical pause was taken. Vital signs were closely monitored during the procedure. Conscious sedation was used during the procedure to decrease patient s anxiety. Using oblique fluoroscopy, the chin of the ``Miles dog at right L5-S1 level was identified, and the skin and deeper tissues just below was localized with 1% lidocaine. Subsequently, a 22-gauge 5-inch spinal needle was advanced under a tunneled view fluoroscopic guidance just underneath the chin of the ``Miles dog at the right L5-S1 Under lateral fluoroscopy, the needle was then advanced to the posterior border of the interforaminal space. After negative aspiration of CSF and blood and with no paresthesias, 1 mL Isovue 200 contrast dye was injected excellent epidurogram and outlining of the nerve root Subsequently, 3 mL of block solution containing 40 mg Depo-Medrol and 2 mL of 0.9% normal saline PF was injected. Needle was removed . At the end of the procedure, skin was cleansed, and bandages were applied. COMPLICATIONS:none DISPOSITION / PLANS: The patient was placed in a supine position and transferred to the recovery area in a stable condition for observation. There was no evidence of lower extremity motor or sensory deficit after the procedure. Patient was discharged from the recovery room after meeting discharge criteria. Home discharge instructions were given to the patient by the staff. The patient was reexamined prior to discharge. note =he is currently on on Coumadin and his PT/INR today was 1.1 , will resume his Coumadin today
[2021-07-21] MEDS ORDERED: IV FLUID CONTINUATION 1,000 ML IV ONE (08:34)
[2021-07-21 08:38] LABS: Glucose,Whole Blood 125 mg/dL (75-99)
[2021-07-21 08:39] VITALS: RESP 16
--- NOTE | 2021-07-21 08:44 | FL ---
Fluoroscopy History: Lumbar Epid Steroid Inject Lumbar Epid Steroid Injection, 7 sec fluoro time, [address] Juarez.
[2021-07-21 08:52] VITALS: BP 131/75; PULSE 63
== END 2021-07-21 09:05 | disposition home or self-care (01) ==
LOC: ORPAIN 06:45
PROVIDERS: ATTEND Specialist
DX: M51.16 Intervertebral disc disorders with radiculopathy, lumbar region (principal); Z79.01 Long term (current) use of anticoagulants; E11.9 Type 2 diabetes mellitus without complications
CPT/HCPCS: 85610; 64483; J2250; J1030; J3010; Q9966; 62323

== ENCOUNTER → 2021-08-04 | Outpatient (CLI) | payer OTHER ==
--- NOTE | 2021-08-04 11:21 | P.PAINPG ---
Subjective Progress Note Date: 08/04/21 Principal diagnosis: Lumbar back pain, and right leg pain Mr. Kruger is a 56 year old pleasant male patient came to [facility] pain management clinic for follow-up. Patient described pain started many years ago ongoing pain radiating to his right total extremity. Patient had lumbar epidural steroid injection, and right hand foraminal epidural steroid injection at L5-S1. Patient had no good pain relief with all intervention procedures promote clinic. Patient described pain as aching, sharp, throbbing, tingling type of pain. Patient rated pain 8 out of 10 in severity. Which may very her pain level from 6-10 out of 10 in severity. Patient lumbar back pain radiating to right lower extremity . Pain increases with activities, and standing, walking, sitting, bending forward, and lifting. Pain decreases with medications. Overall patient activities- decreased Because of the pain patient is feeling lack of sleep and interest and energy sometimes. Denied any bowel or bladder problems. Patient denies any adverse effects to medications. Using a wheelchair, walker as walking aids for walking. Patient denied any suicidal or homicidal ideations intent or plan. At this time patient also denies any auditory or visual hallucinations. There are no signs of narcotic diversion/misuse/overuse and no new-onset weakness, bowel/bladder incontinence, saddle anesthesia, or no red flag symptoms. Objective - Exam General: Well-developed, well-nourished, no acute distress HEENT: Normocephalic, and atraumatic Neck: Supple, no neck swelling Psychiatric: Appropriate mood, and affect ELECTROTHERAPIST: No focal neurological deficits Musculoskeletal: Upper extremity: Normal strength, and range of motion. Sensation grossly intact Lower extremity: Normal strength, and decreased range of motion secondary to pain Lumbar spine: Paravertebral tenderness: positive Lumbar facet load test : positive Sacroiliac joint tenderness: Positive Thigh thrust test: Not done secondary to pain Multiple trigger points positive in the lumbar area. - Constitutional Constitutional Comment(s): 13 point review of symptoms negative except as mentioned in history of present illness. Assessment and Plan Assessment: Lumbar spondylosis without myelopathy Lumbar radiculopathy right-sided Myofascial pain syndrome, and chronic pain syndrome Obesity Tobacco dependence smoking cigarettes Plan: #1 Diagnoses, prognosis, and multiple treatment options including but not limited to physical therapy, interventional therapy, adjunct medication therapy, narcotic medication, and surgical options were discussed with the patient. And all questions were answered to the patient's satisfaction. #2 treatment plan agreement : Patient was thoroughly discussed regarding the treatment options, alternatives, and importance of exercises as tolerated. Patient clearly understood. #3 Patient was counseled on importance of regular exercise. Including usha chi, aerobic exercises as tolerated. Which helps for chronic pain, and overall well- being. Patient also counseled regarding importance of weight control rolling chronic pain, and overall other health issues. By altering diet habits, minimizing sugar intake, and processed foods helps in minimizing Inflammation. Also discussed with the patient regarding intermittent fasting. Patient counseled regarding smoking associated with chronic pain, worsening inflammation, and smoking effects on liver, and medication metabolism. And encouraged to stop smoking. #4 investigations: MAPS- reviewed , urine drug test- not done #5 diagnostic tests: None #6 consultation : Neurosurgical consultation for evaluation and treatment # 7 interventional procedures: None . #8 medications No medications from the pain clinic #9 morphine milligrams equivalents dose ( MME) per day: 0 from the pain clinic. # 10 : Patient recommended to try TENS unit's, and percussion massage device #11 disposition: scheduled to follow up with pain clinic as needed in future Time with Patient: Less than 30 PQRS Measure Charge Sheet Measure #130: Documentation of Current Meds in Medical Chart: Patient's medications documented in chart Measure #226: Tobacco Use: Screen & Cessation Intervention: Pt screened for tobacco use AND intervention given Measure #111: Pneumonia Vaccination: Pneumococcal vaccine NOT administered or previously given Measure #47: Advance Care Plan: Advance care planning discussed & documented, pt chose/unable to give Measure #412: Opioid Treatment Agreement: No documentation of signed opioid treatment agreement Measure #408: Opioid Therapy Follow-up Evaluation: Patient had NO f/u eval minimum every 3 months during opioid therapy Measure #317: Preventitive Care & Scrn High Bld Press & F/U: Pre-hypertensive or hypertensive BP documented, pt will f/u with PCP Measure #128: Body Mass Index (BMI) Screening & Follow-up: BMI documented ABOVE normal parameters - f/u documented Measure #131: Pain Assessment & Follow-up: Pain positive & plan documented Measure #431: Unhealthy Alcohol Use Preventative Care & Scrn: Patient not identified as an unhealthy alcohol user PQRS Narrative: Smoking Status Current some day smoker Pain Intensity [Right Leg] 9 Scale Used Numeric (1 - 10) Hx Alcohol Use (MH) No Home Medications: Ambulatory Orders Insuln Asp Prt/Insulin Aspart [NovoLOG MIX 70-30 VIAL] 50 unit SQ QAM 07/27/17 Leflunomide [Arava] 20 mg PO QAM 07/27/17 Ferrous Sulfate [Iron] 325 mg PO TID 10/22/18 Ergocalciferol [Vitamin D2 (1250 Mcg = 48810 Iu)] 1,250 mcg PO Q14D 11/15/20 HYDROcodone/APAP 10-325MG [[place] 10-325] 1 tab PO TID PRN 11/15/20 Insuln Asp Prt/Insulin Aspart [NovoLOG MIX 70-30 VIAL] 40 unit SQ HS 11/15/20 Varenicline [Chantix Continuing Pack] 1 mg PO BID 11/15/20 amLODIPine BESYLATE/BENAZEPRIL [amLODIPine BESYLATE/BENAZEPRIL 10-40 MG] 1 tab PO QAM 11/15/20 [address]aSALAzine [Sulfasalazine Dr] 1,000 mg PO DAILY 11/15/20 Aspirin 81 mg PO DAILY #100 chew 11/19/20 Gabapentin 300 mg PO BID 30 Days #60 cap 02/02/21 Amiodarone [Cordarone] 200 mg PO QAM 02/18/21 Atorvastatin [Lipitor] 40 mg PO DAILY 02/18/21 Carvedilol [Coreg] 25 mg PO BID 02/18/21 Furosemide [Lasix] 40 mg PO QAM 02/18/21 Warfarin Sodium 2.5 mg PO DAILY 02/18/21 hydrALAZINE HCL [Apresoline] 25 mg PO TID 02/18/21 lisinopriL [Zestril] 20 mg PO BID 02/18/21 Controlled Substance Measures - Controlled Substance Measures Is patient prescribed a controlled substance at discharge?: No
[2021-08-04 11:38] VITALS: BP 102/66; PULSE 67; RESP 18; TEMP 97.9
== END ==
LOC: PNWHC3 10:55
DX: M47.26 Other spondylosis with radiculopathy, lumbar region (principal); M79.18 Myalgia, other site; G89.4 Chronic pain syndrome; E66.9 Obesity, unspecified; F17.210 Nicotine dependence, cigarettes, uncomplicated; Z68.38 Body mass index [BMI] 38.0-38.9, adult
CPT/HCPCS: 99211

== ENCOUNTER → 2021-10-27 | Outpatient (CLI) | payer OTHER ==
[2021-10-27 12:28] VITALS: BP 146/101; PULSE 86; RESP 18; TEMP 97.8
--- NOTE | 2021-10-27 12:42 | P.PN ---
Subjective Progress Note Date: 10/27/21 Principal diagnosis: A 56 yr old male with a history of severe and chronic low back pain secondary to lumbar degenerative disc diseases and lumbar spondylosis with facet arthropathy presents today for pain management. Patient had sufficient pain relief with the TFESI. Patient states his pain currently is mostly shooting down to his right buttocks to right hip and right foot. Pain level is 9 out of 10 in intensity with a sharp shooting stabbing character. Pain is provoked by activity, physical therapy 2000, chiropractic treatments in August 2021, and home exercise. Pain is alleviated with medications, injections, heat, repositioning and rest. Interventional pain procedures completed include R L5-S1 TFESI Patient is currently on [place] and Gabapentin Patient denies any side effects of the medication(s), denies excessive drowsiness or sleepiness, denies suicidal ideation and reports that the current pain medication is helping to control the pain and improve activities of daily living. Patient denies any motor or sensory deficits. Patient denies any fever or night sweats, denies any change in the bowel movements or urination. Physical Examination: -Constitutional: Cooperative. Not in acute distress . -HEENT: Neck is supple. No lymphadenopathy. No thyromegaly. Normal thyroid size. Eyes: No ptosis , no icterus, no photophobia. ENT: No auditory deficits. Normal oropharynx. No Thrush. - Respiratory: Chest clear to auscultations bilaterally. No wheezing. No rhonchi. - Cardiovascular: Regular rate and rhythm. S1 / S2 , no S3 , no S4. - Gastrointestinal: Abdomen soft no tenderness. Bowel sounds positive in all four quadrants. No organomegaly. - Genitourinary: Deferred. - Neurologic: Cranial nerve II to XII intact. No focal neurological deficits. - Psychatric: Alert & oriented x 3. Matching mood & appropriate affect. Judgment and insight intact. - Lymphatic: No Lymphadenopathy. - Musculoskeletal: Cervical spine: Muscle bulk/ tone/ strength in the bilateral upper extremities normal. Facet loading test cervical area positive. Lumbar spine: Motor bulk/ tone/ strength lower extremities , thigh and legs : 5/5 Deep tendon reflexes : Normal Knee Jerk. Normal Ankle Jerk . Lumbar Facet Loading Test positive over R L5-S1 Straight Leg Raise: positive at 30 degree right side/ left side Desire test: positive right side / left side Range of motion: Flexion of the lumbar spine <60 degrees Range of motion: Extension of the lumbar spine <20 degrees Moderate tenderness over the Sacroiliac joint: right side / left side Assessment and plan: Chronic low back pain secondary to lumbar degenerative disc disease , lumbar spondylosis with facet arthropathy without myelopathy Recommendation of right facet block medial branch of the L5-S1 May need a series of injections and RFA for sufficient pain relief Discontinue Coumadin and aspirin 5 days prior to procedure Medical clearance may be needed if prior form has Risks benefits of procedure discussed and patient verbalized understanding All patient questions answered MAPS reviewed and it was appropriate. I have spent 31 minutes on patient care today. Dr Juarez was available by phone for the evaluation of this patient. The time was used to review the medical records including relevant urine studies and Prescription history (MAPs), review of the available imaging, evaluation and examination of the patient, coordination of care with the medical staff and if applicable referring physicians, as well as creation of the medical record Objective - Vital Signs Vital signs: Vital Signs Temp 97.8 F 10/27/21 12:17 Pulse 86 10/27/21 12:17 Resp 18 10/27/21 12:17 BP 146/101 10/27/21 12:17 Pulse Ox 98 10/27/21 12:17 PQRS Measure Charge Sheet Mode of Arrival: Ambulatory, Wheelchair - Pain Location Right Leg Non-Pharmacological Interventions: Heat, Home Exercise, Ice, Inactivity, Physical Therapy, Stretching PQRS Narrative: Smoking Status Current some day smoker Blood Pressure 146/101 Pain Intensity [Right Leg] 9 Pain Intensity [Lower Back] 8 Scale Used Numeric (1 - 10) Hx Alcohol Use (MH) No Home Medications: Ambulatory Orders Insuln Asp Prt/Insulin Aspart [NovoLOG MIX 70-30 VIAL] 50 unit SQ QAM 07/27/17 Leflunomide [Arava] 20 mg PO QAM 07/27/17 Ferrous Sulfate [Iron] 325 mg PO TID 10/22/18 Ergocalciferol [Vitamin D2 (1250 Mcg = 16705 Iu)] 1,250 mcg PO Q14D 11/15/20 HYDROcodone/APAP 10-325MG [[place] 10-325] 1 tab PO TID PRN 11/15/20 Insuln Asp Prt/Insulin Aspart [NovoLOG MIX 70-30 VIAL] 40 unit SQ HS 11/15/20 Varenicline [Chantix Continuing Pack] 1 mg PO BID 11/15/20 amLODIPine BESYLATE/BENAZEPRIL [amLODIPine BESYLATE/BENAZEPRIL 10-40 MG] 1 tab PO QAM 11/15/20 sulfaSALAzine [Sulfasalazine Dr] 1,000 mg PO DAILY 11/15/20 Aspirin 81 mg PO DAILY #100 chew 11/19/20 Gabapentin 300 mg PO BID 30 Days #60 cap 02/02/21 Amiodarone [Cordarone] 200 mg PO QAM 02/18/21 Atorvastatin [Lipitor] 40 mg PO DAILY 02/18/21 Carvedilol [Coreg] 25 mg PO BID 02/18/21 Furosemide [Lasix] 40 mg PO QAM 02/18/21 Warfarin Sodium 2.5 mg PO DAILY 02/18/21 hydrALAZINE HCL [Apresoline] 25 mg PO TID 02/18/21 lisinopriL [Zestril] 20 mg PO BID 02/18/21
== END ==
LOC: PNWHC3 11:51
PROVIDERS: ATTEND Physician Assistant Medical
DX: G89.29 Other chronic pain (principal); M51.36 Other intervertebral disc degeneration, lumbar region; M47.816 Spondylosis without myelopathy or radiculopathy, lumbar region; F17.200 Nicotine dependence, unspecified, uncomplicated
CPT/HCPCS: 99211

== ENCOUNTER 2021-11-02 12:26 | Observation (INO) | payer OTHER ==
[2021-11-02] MEDS ORDERED: ALBUTEROL NEBULIZED 2.5 MG/3 ML INHALATION STA (12:40)
[2021-11-02] MEDS ORDERED: IPRATROPIUM 0.5 MG/2.5 ML NEBU INHALATION STA (12:40)
[2021-11-02] MEDS ORDERED: methylPREDNISolone SOD SUCCI 125 MG/2 ML VIAL IV STA (12:40)
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
[2021-11-02 13:35] LABS: Basophils # (A) 0.1 k/uL (0-0.2); Basophils % (A) 1 %; Eosinophils # (A) 0.1 k/uL (0-0.7); Eosinophils % (A) 1 %; HCT 46.9 % (39.0-53.0); HGB 14.7 gm/dL (13.0-17.5); Hypochromasia Slight; Lymphocytes # (A) 1.4 k/uL (1.0-4.8); Lymphocytes % (A) 13 %; MCH 28.5 pg (25.0-35.0); MCHC 31.3 g/dL (31.0-37.0); MCV 91.1 fL (80.0-100.0); Mean Platelet Volume 10.4; Monocytes # (A) 1.2 k/uL (0-1.0); Monocytes % (A) 11 %; Neutrophils # (A) 7.7 k/uL (1.3-7.7); Neutrophils % (A) 72 %; Platelet Count 173 k/uL (150-450); RBC 5.15 m/uL (4.30-5.90); RDW 15.7 % (11.5-15.5); WBC 10.7 k/uL (3.8-10.6)
[2021-11-02 13:37] LABS: African American GFR (CKD) >90 (>60 ml/min/1.73 sqM); Anion Gap 10 mmol/L; Blood Urea Nitrogen 9 mg/dL (9-20); Calcium 8.9 mg/dL (8.4-10.2); Carbon Dioxide 21 mmol/L (22-30); Chloride 107 mmol/L (98-107); Glucose 163 mg/dL (74-99); Non-African American GFR(CKD) >90 (>60 ml/min/1.73 sqM); Sodium 138 mmol/L (137-145); Total Bilirubin 1.5 mg/dL (0.2-1.3)
--- NOTE | 2021-11-02 13:40 | XR ---
EXAMINATION TYPE: XR chest 2V DATE OF EXAM: 11/02/2021 HISTORY: Shortness of breath. COMPARISON: 11/15/2020 TECHNIQUE: Single view of the chest is submitted. FINDINGS: Demonstrated are scattered senescent parenchymal change. Increased patchy density right medial lung base may reflect developing infiltrate. Correlate clinical ly and progress studies are advised. The heart is stable. Hilar and mediastinal structures are within normal limits. Degenerative changes are seen of the dorsal spine. IMPRESSION: 1. Increased patchy density right medial lung base may reflect developing infiltrate. Correlate clin ically and progress studies are advised.
[2021-11-02 13:46] LABS: Potassium 4.3 mmol/L (3.5-5.1)
[2021-11-02 13:47] LABS: ALT 23 U/L (4-49); AST 32 U/L (17-59); Albumin 3.6 g/dL (3.5-5.0)
[2021-11-02 13:48] LABS: Alkaline Phosphatase 74 U/L (38-126)
[2021-11-02 13:49] LABS: INR 1.1 (<1.2); Partial Thromboplastin Time 21.7 sec (22.0-30.0); Prothrombin Time 11.7 sec (9.0-12.0)
[2021-11-02] MEDS ORDERED: NITROGLYCERIN OINT 1 INCH/GM PACKET TOPICAL STA (13:54)
[2021-11-02] MEDS ORDERED: HEPARIN SODIUM 1,000 UN/ML (10ML VL) IV ONE (13:55)
[2021-11-02] MEDS ORDERED: ASPIRIN 325 MG TAB PO STA (13:56)
[2021-11-02] MEDS ORDERED: FUROSEMIDE 10 MG/ML 4 ML VIAL IV STA (13:56)
[2021-11-02] MEDS: HEPARIN SOD,PORK IN 0.45% NACL 25,000 UNIT in 0.45% NACL 1 250ML.BAG IV SCH (14:37)
[2021-11-02] MEDS ORDERED: carvediloL 12.5 MG TAB PO STA (15:02)
--- NOTE | 2021-11-02 16:08 | CT ---
EXAMINATION TYPE: CT angio chest DATE OF EXAM: 11/02/2021 COMPARISON: Radiograph same day HISTORY: 56-year-old male shortness of breath, Difficulty breathing. TECHNIQUE: Contiguous axial scanning of the chest performed with IV Contrast, patient injected with 1 00 mL of Isovue 370. Coronal/sagittal MIP reconstructions performed. CT DLP: 1015.3 mGycm Automated exposure control for dose reduction was used. FINDINGS: Left anterior chest wall before meals greater right ventricular lead. Heart upper limits of normal in size without pericardial effusion. No flattening of the interventricu lar septum or reflux of contrast into the hepatic veins. LAD coronary artery calcifications. 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 Ectasia ascending aorta at 3.9 cm. Ectasia upper descendin g thoracic aorta 3.0 cm. Clustered prominent lower left paratracheal lymph nodes measuring up to 9 mm. Subcarinal lymph node m easuring 1.1 cm. No thoracic lymphadenopathy by CT size criteria. Satisfactory opacification of the pulmonary artery system mode from the breathing motion in the lower lungs. No definite pulmonary embolus is seen allowing for this limitation. There is mild to moderate emphysema. Trace pleural effusions. Mild dependent atelectasis in the lower lobes. Patchy groundglass change left upper lobe and bilateral lower lobes. Some hypodensity along the anterior falciform ligament in the visualized upper abdomen probably focal fat. Bones: Moderate degenerative disc disease throughout the thoracic spine. IMPRESSION: 1. BREATHING MOTION ARTIFACT LIMITS ASSESSMENT. NO DEFINITE PULMONARY EMBOLUS ALLOWING FOR THIS LIMIT ATION. 2. COPD WITH [id number] EMPHYSEMA. 3. GIVEN TRACE EFFUSIONS, CORRELATE TO EXCLUDE MILD CHF/FLUID OVERLOAD STATE. THERE IS PATCHY GROUNDG LASS IN THE LOWER LOBES AND LEFT UPPER LOBE THAT COULD REPRESENT MILD INTERSTITIAL PULMONARY EDEMA. C ORRELATE TO EXCLUDE OTHER ETIOLOGIES SUCH ASPIRATION OR COVID PNEUMONIA.
[2021-11-02] MEDS ORDERED: MORPHINE SULFATE 4 MG/ML SYRINGE IV PRN (17:14)
[2021-11-02] MEDS ORDERED: ACETAMINOPHEN TAB 325 MG TAB PO PRN (17:14)
[2021-11-02] MEDS ORDERED: NALOXONE 0.4 MG/ML 1 ML VIAL IV PRN (17:14)
[2021-11-02] MEDS ORDERED: ISOSORBIDE MONONITRATE ER 30 MG TAB.ER.24H PO STA (17:15)
[2021-11-02] MEDS: NITROGLYCERIN OINT 1 INCH/GM PACKET TOPICAL SCH (19:15)
[2021-11-02] MEDS: HEPARIN SODIUM 1,000 UN/ML (10ML VL) IV PRN (19:27)
[2021-11-02] MEDS: IPRATROPIUM-ALBUTEROL 3 ML NEB INHALATION SCH ×2 (21:57→23:26)
[2021-11-02] MEDS: carvediloL 12.5 MG TAB PO SCH (22:00)
[2021-11-02] MEDS: lisinopriL 20 MG TAB PO SCH (22:00)
[2021-11-02] MEDS: FUROSEMIDE 10 MG/ML 4 ML VIAL IV SCH (22:01)
[2021-11-02] MEDS ORDERED: HYDROcodone/APAP 10-325MG 1 EACH TAB PO PRN (22:13)
[2021-11-02] MEDS ORDERED: CYCLOBENZAPRINE 10 MG TAB PO PRN (22:13)
[2021-11-02 22:24] LABS: Glucose,Whole Blood 318 mg/dL (75-99)
[2021-11-03] MEDS: INSULN ASP PRT/INSULIN ASPART 100 UNIT/ML 10 ML VIAL SQ SCH ×3 (00:17→21:26)
[2021-11-03] MEDS: NITROGLYCERIN OINT 1 INCH/GM PACKET TOPICAL SCH ×5 (00:18→23:43)
[2021-11-03] MEDS: SULFASALAZINE 500 MG PO SCH ×2 (00:21→09:32)
[2021-11-03] MEDS: IPRATROPIUM-ALBUTEROL 3 ML NEB INHALATION SCH ×5 (03:17→19:51)
[2021-11-03 06:15] LABS: Glucose,Whole Blood 203 mg/dL (75-99)
[2021-11-03] MEDS: lisinopriL 20 MG TAB PO SCH ×2 (09:23→10:16)
[2021-11-03] MEDS: PANTOPRAZOLE 40 MG/10 ML VIAL IV SCH (09:24)
[2021-11-03] MEDS: FUROSEMIDE 10 MG/ML 4 ML VIAL IV SCH ×2 (09:24→21:04)
[2021-11-03] MEDS: ASPIRIN 81 MG PO SCH (09:24)
[2021-11-03] MEDS: ATORVASTATIN 40 MG TAB PO SCH (09:24)
[2021-11-03] MEDS: AMIODARONE 200 MG TAB PO SCH (09:24)
[2021-11-03 09:41] LABS: Basophils % (A) 0 %; Eosinophils # (A) 0.1 k/uL (0-0.7); Eosinophils % (A) 1 %; HCT 41.9 % (39.0-53.0); HGB 13.1 gm/dL (13.0-17.5); Hypochromasia Slight; Lymphocytes # (A) 1.5 k/uL (1.0-4.8); Lymphocytes % (A) 10 %; MCH 28.5 pg (25.0-35.0); MCHC 31.3 g/dL (31.0-37.0); MCV 91.2 fL (80.0-100.0); Mean Platelet Volume 10.6; Monocytes # (A) 1.4 k/uL (0-1.0); Monocytes % (A) 9 %; Neutrophils # (A) 11.9 k/uL (1.3-7.7); Neutrophils % (A) 79 %; Platelet Count 193 k/uL (150-450); RBC 4.59 m/uL (4.30-5.90); RDW 15.7 % (11.5-15.5)
[2021-11-03 09:42] LABS: Glucose,Whole Blood 139 mg/dL (75-99)
[2021-11-03 10:10] LABS: INR 1.1 (<1.2); Prothrombin Time 11.3 sec (9.0-12.0)
[2021-11-03] MEDS: predniSONE 50 MG TAB PO SCH (10:18)
--- NOTE | 2021-11-03 10:57 | ECHOF ---
Referral Reason:payal MEASUREMENTS -------- HEIGHT: 165.1 cm WEIGHT: 98.9 kg BP: 94/65 RVIDd: 2.9 cm (< 3.3) IVSd: 1.5 cm (0.6 - 1.1) LVIDd: 5.0 cm (3.9 - 5.3) LVPWd: 1.3 cm (0.6 - 1.1) IVSs: 1.6 cm LVIDs: 4.1 cm LVPWs: 1.7 cm %FS: 17 % LAESV Index (A-L): 18.66 ml/m IVSd: 1.4 cm (0.6 - 1.1) LVIDd: 7.1 cm (3.9 - 5.3) LVPWd: 1.4 cm (0.6 - 1.1) IVSs: 1.6 cm LVIDs: 5.9 cm LVPWs: 1.8 cm EDV(Teich): 268 ml ESV(Teich): 176 ml EF(Teich): 34 % %FS: 17 % SV(Teich): 92 ml Ao Diam: 3.9 cm (2.0 - 3.7) AV Cusp: 2.2 cm (1.5 - 2.6) LA Diam: 2.3 cm (2.7 - 3.8) MV EXCURSION: 12.973 mm (> 18.000) MV EF SLOPE: 82 mm/s (70 - 150) EPSS: 1.9 cm MV E Milton: 0.70 m/s MV DecT: 142 ms MV A [place]: 0.84 m/s MV E/A Ratio: 0.83 AR PHT: 569 ms RAP: 5.00 mmHg RVSP: 26.33 mmHg FINDINGS -------- Sinus rhythm. This was a technically difficult study with suboptimal apical views. The left ventricular size is normal. Left ventricular wall thickness is normal. Overall left vent ricular systolic function is severely impaired with, an EF between 25 - 30 %. Global hypokinesis The right ventricle is normal in size. Normal LA size by volume 22+/-6 ml/m2. The right atrium was not well visualized. 5.0mg of Lumason was utilized for enhancement of images Interatrial and interventricular septum intact. Trace amount of aortic regurgitation. There is trace to mild mitral regurgitation. Mild tricuspid regurgitation present. There is no evidence of pulmonary hypertension. The right v entricular systolic pressure, as measured by Doppler, is 26.33mmHg. There is no pulmonic regurgitation present. The aortic root size is normal. IVC Not well visulized. There is no pericardial effusion. CONCLUSIONS -------- 1. The left ventricular size is normal. 2. Left ventricular wall thickness is normal. 3. Overall left ventricular systolic function is severely impaired with, an EF between 25 - 30 %. 4. Trace amount of aortic regurgitation. 5. There is trace to mild mitral regurgitation. 6. Mild tricuspid regurgitation present. HUMAN RESOURCES OFFICE MANAGER: Rachelle Moya RDCS
[2021-11-03] MEDS: carvediloL 12.5 MG TAB PO SCH ×2 (11:05→21:04)
[2021-11-03 11:37] LABS: Glucose,Whole Blood 146 mg/dL (75-99)
[2021-11-03] MEDS ORDERED: NITROGLYCERIN SL TABS 0.4 MG TAB SUBLINGUAL PRN (11:50)
[2021-11-03] MEDS ORDERED: ALPRAZolam 0.5 MG TAB PO PRN (11:50)
[2021-11-03] MEDS ORDERED: ALPRAZolam 0.25 MG TAB PO PRN (11:50)
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
--- NOTE | 2021-11-03 15:30 | PN ---
PROGRESS NOTE CHIEF COMPLAINT: Difficulty breathing and congestive heart failure. HISTORY OF PRESENT ILLNESS: This gentleman is feeling a little bit better today, but he is still short of breath. He remains pale. Troponins have been elevated. He denies having had any chest pain. He is a diabetic, however. REVIEW OF SYSTEMS: Otherwise unremarkable. He denies any chest tightness. PHYSICAL EXAMINATION: Breath sounds are diminished throughout, particularly at the bases, with rales on inspiration and expiration. Cardiac exam is normal. Abdomen is soft and nontender. IMPRESSION: 1. Acute congestive heart failure. 2. Probable [id number] myocardial infarction. 3. History of diabetes. PLAN: Continue with anticoagulation and monitoring of his cardiac enzymes. He is being seen by Cardiology. MMODL / IJN: [id number] /
--- NOTE | 2021-11-03 16:06 | HP ---
HISTORY AND PHYSICAL CHIEF COMPLAINT: Shortness of breath. HISTORY OF PRESENT ILLNESS: This is another admission for this 56-year-old -[place] male who has multiple medical problems, including type 2 diabetes mellitus, history of hypertension and congestive heart failure. He also is being treated for chronic right hip and thigh pain without an obvious etiology. He started to have a lot of difficulty with shortness of breath. He had no chest pain. He came to the emergency room extremely short of breath and was found to be in acute congestive heart failure. His troponin was elevated. REVIEW OF SYSTEMS: He denies any neurologic problems, confusion, syncope, orthopnea, nausea, vomiting, abdominal pain, melena, hematochezia, jaundice, dysuria, frequency, urgency, etc. Blood sugars are not particularly well controlled. Past medical history, family history, personal and social histories demonstrated he is NOT ALLERGIC TO ANY MEDICATION. He is on: 1. Atorvastatin 40 mg once a day. 2. Amlodipine/benazepril 10/40 once a day. 3. Furosemide 40 mg once a day. 4. Humalog 75/25, 50 units in the morning and 40 at night. 5. Sulfasalazine 500 mg two once a day. 6. Hydralazine 25 mg 3 times a day. 7. Claritin. 8. Vitamin D. 9. Gabapentin 300 mg twice a day. 10.Lisinopril 20 mg twice a day. 11.Ferrous sulfate 325 twice a day. 12.Aspirin 81 mg a day. 13.Coumadin 5 mg once a day. 14.Carvedilol 25 twice a day. 15.Amiodarone 200 mg once a day. 16.Vicodin. 17.Leflunomide 20 mg once a day. Remainder of his history is unremarkable. He does smoke. He has a history of atrial fibrillation. PHYSICAL EXAMINATION: Blood pressure is 134/76 with a pulse of 91, respirations of 35. He is afebrile. In general he appeared to be slightly pale and he was very dyspneic. Head, ears, eyes, nose, mouth and throat were normal. Sclerae were pale. Neck veins could not be assessed. Neck was supple. Chest demonstrated poor breath sounds with rales throughout. Cardiac exam demonstrated tachycardia. Abdomen was soft and nontender. Extremities are normal. Neurologically he is intact. He is admitted to the hospital with diagnoses: 1. Acute congestive heart failure. 2. Chronic congestive heart failure. 3. History of atrial fibrillation. 4. Chronic right thigh pain. 5. History of hypertension. 6. Insulin-dependent diabetes mellitus. PLAN: 1. Bedrest. 2. IV fluids. 3. Diuresis. 4. Echocardiogram. 5. Consult with Cardiology. RYAN / BEN: [id number] /
[2021-11-03 16:35] LABS: Glucose,Whole Blood 220 mg/dL (75-99)
[2021-11-03] MEDS: HEPARIN SOD,PORK IN 0.45% NACL 25,000 UNIT in 0.45% NACL 1 250ML.BAG IV SCH (16:58)
[2021-11-03] MEDS ORDERED: IPRATROPIUM-ALBUTEROL 3 ML NEB INHALATION PRN (17:13)
[2021-11-03] MEDS ORDERED: SODIUM CHLORIDE 0.9% 500 ML 250 ML IV ONE (17:13)
[2021-11-03] MEDS: INSULIN ASPART (NovoLOG) 100 UNIT/ML VIAL SQ SCH ×2 (17:37→21:26)
[2021-11-03 20:16] LABS: Glucose,Whole Blood 281 mg/dL (75-99)
[2021-11-04] MEDS: SODIUM CHLORIDE 0.9% 1,000 ML in EMPTY BAG 1 BAG IV SCH ×2 (00:04→06:00)
[2021-11-04 01:33] LABS: Basophils % (A) 0 %; Eosinophils % (A) 0 %; HCT 39.4 % (39.0-53.0); HGB 12.6 gm/dL (13.0-17.5); Hypochromasia Slight; Lymphocytes # (A) 1.1 k/uL (1.0-4.8); Lymphocytes % (A) 8 %; MCH 28.7 pg (25.0-35.0); MCHC 31.9 g/dL (31.0-37.0); MCV 90.1 fL (80.0-100.0); Mean Platelet Volume 10.6; Monocytes # (A) 1.2 k/uL (0-1.0); Monocytes % (A) 9 %; Neutrophils % (A) 81 %; Platelet Count 196 k/uL (150-450); RBC 4.37 m/uL (4.30-5.90); RDW 15.5 % (11.5-15.5); WBC 13.6 k/uL (3.8-10.6)
[2021-11-04] MEDS: HEPARIN SODIUM 1,000 UN/ML (10ML VL) IV PRN ×2 (02:50→09:17)
[2021-11-04 03:23] VITALS: TEMP 98.4
[2021-11-04] MEDS: NITROGLYCERIN OINT 1 INCH/GM PACKET TOPICAL SCH ×2 (05:13→14:20)
[2021-11-04] MEDS: HEPARIN SOD,PORK IN 0.45% NACL 25,000 UNIT in 0.45% NACL 1 250ML.BAG IV SCH (05:59)
[2021-11-04] MEDS: INSULN ASP PRT/INSULIN ASPART 100 UNIT/ML 10 ML VIAL SQ SCH (06:22)
[2021-11-04] MEDS: FUROSEMIDE 10 MG/ML 4 ML VIAL IV SCH (06:22)
[2021-11-04] MEDS: INSULIN ASPART (NovoLOG) 100 UNIT/ML VIAL SQ SCH ×3 (06:22→16:56)
[2021-11-04 06:23] LABS: Glucose,Whole Blood 145 mg/dL (75-99)
[2021-11-04] MEDS ORDERED: HEPARIN SODIUM,PORCINE 2,500 UNIT in SODIUM CHLORIDE 0.9% 250 ML IRRIGATION PRN (07:00)
[2021-11-04] MEDS ORDERED: HEPARIN SODIUM,PORCINE 10,000 UNIT in SODIUM CHLORIDE 0.9% 1,000 ML IRRIGATION PRN (07:00)
[2021-11-04] MEDS: IPRATROPIUM-ALBUTEROL 3 ML NEB INHALATION SCH ×3 (08:01→15:20)
[2021-11-04 08:47] LABS: African American GFR (CKD) >90 (>60 ml/min/1.73 sqM); Anion Gap 4 mmol/L; Blood Urea Nitrogen 18 mg/dL (9-20); Calcium 8.6 mg/dL (8.4-10.2); Carbon Dioxide 28 mmol/L (22-30); Chloride 105 mmol/L (98-107); Glucose 145 mg/dL (74-99); Non-African American GFR(CKD) 89 (>60 ml/min/1.73 sqM); Potassium 4.1 mmol/L (3.5-5.1); Sodium 137 mmol/L (137-145)
[2021-11-04] MEDS ORDERED: lisinopriL 20 MG TAB PO SCH (09:00)
[2021-11-04] MEDS: SULFASALAZINE 500 MG PO SCH (09:07)
[2021-11-04] MEDS: ASPIRIN 81 MG PO SCH (09:16)
[2021-11-04] MEDS: ATORVASTATIN 40 MG TAB PO SCH (09:16)
[2021-11-04] MEDS: PANTOPRAZOLE 40 MG/10 ML VIAL IV SCH (09:17)
[2021-11-04] MEDS: predniSONE 50 MG TAB PO SCH (09:17)
[2021-11-04] MEDS: AMIODARONE 200 MG TAB PO SCH (09:17)
[2021-11-04] MEDS: carvediloL 12.5 MG TAB PO SCH (09:17)
[2021-11-04] MEDS ORDERED: LIDOCAINE 1% INJ 10MG/ML (20 ML MDV) ONE (10:07)
[2021-11-04] MEDS ORDERED: VERAPAMIL 2.5 MG/ML 2 ML AMP ONE (10:07)
[2021-11-04] MEDS ORDERED: fentaNYL (PF) 50 MCG/ML 2 ML AMP ONE (10:11)
[2021-11-04] MEDS ORDERED: IV FLUID CONTINUATION 1,000 ML IV ONE (10:27)
[2021-11-04] MEDS ORDERED: MIDAZOLAM 2 MG/2 ML VIAL IV ONE (10:42)
[2021-11-04] MEDS ORDERED: fentaNYL (PF) 50 MCG/ML 2 ML AMP IV ONE (10:42)
[2021-11-04] MEDS ORDERED: LIDOCAINE 1% INJ 10MG/ML (20 ML MDV) SQ ONE (10:45)
[2021-11-04] MEDS ORDERED: VERAPAMIL SYRINGE (5 MG/10 ML) INTRAARTER ONE (10:47)
[2021-11-04] MEDS ORDERED: IOPAMIDOL-370 125ML BTL INJ ONE (10:58)
[2021-11-04 12:00] LABS: Glucose,Whole Blood 135 mg/dL (75-99)
[2021-11-04 15:23] VITALS: BP 107/84; RESP 16
[2021-11-04 15:35] VITALS: PULSE 76
[2021-11-04] MEDS ORDERED: FUROSEMIDE 40 MG TAB PO SCH (16:00)
[2021-11-04 16:41] LABS: Glucose,Whole Blood 249 mg/dL (75-99)
--- NOTE | 2021-11-04 17:46 | PN ---
PROGRESS NOTE DATE OF SERVICE: 11/04/2021 CHIEF COMPLAINT: Acute congestive heart failure. HISTORY OF PRESENT ILLNESS: This gentleman is breathing a little bit better. He is going today for cardiac cath. Enzymes been elevated. His EKG does show some ST-segment changes. PHYSICAL EXAMINATION: Chest is clear. Cardiac exam is normal. The abdomen is soft and non-tender. IMPRESSION: Possible ST-elevation myocardial infarction. PLAN: Cardiac cath today. MMODL / IJN: [id number] /
--- NOTE | 2021-11-04 21:14 | P.CARDCATH ---
Description of Procedure: PROCEDURES PERFORMED: Left heart catheterization, bilateral coronary angiography, LV gram INDICATION: NSTEMI HISTORY: Patient is pleasant 56 year old male with history of coronary artery disease status post PCI mid LAD 8-10 years ago in [place], ischemic cardiomyopathy status post AICD, history of ventricular tachycardia, LV thrombus maintained on Coumadin, CVA, hypertension, dyslipidemia, diabetes mellitus and nicotine dependence. He previously had cardiomyopathy with improved EF however presented with acute onset of shortness of breath with minimally elevated troponins and EKG with deep T wave inversions and echo showing decrease in EF. EKG was somewhat concerning for Takotsubo's cardiomyopathy however no recent stressful events. Therefore heart catheterization was recommended. CONSENT:I have discussed the risks, benefits and alternative therapies for the above-mentioned procedure and for both sedation/analgesia as well as necessary blood product administration, if indicated, as they pertain to this patient. The patient has indicated understanding and acceptance of the risks and procedures discussed. PROCEDURE: After the risks, benefits and alternatives of the above mentioned procedure explained in detail with the patient, informed consent was obtained. Patient was taken to the catheterization lab and prepped and draped in usual fashion. 1% lidocaine was used to anesthetize the right radial artery. A 6- Greek sheath was placed in the right radial artery using modified Seldinger technique. Left coronary angiography was performed with a 5-Greek JL 3.5 catheter and right coronary angiography was performed with a 5-Greek JR5 catheter in various views. A 5-Greek FR5 catheter was inserted into the left ventricle and pressure measurements were obtained. A 6Fr pigtail was inserted into the left ventricle and a left ventriculogram was performed in the FATIMA projection with power injection. The right radial sheath was removed and a TR band was placed with hemostasis achieved. The patient tolerated the procedure well. Patient was transported back to the post catheterization holding area in stable condition. Conscious Sedation: Patient was monitored under the direct supervision of vision of myself for conscious sedation using Versed and fentanyl for a total duration of 18 minutes HEMODYNAMICS: Aorta: 126/82 LV: 118/16 LVEDP 33 LEFT VENTRICULOGRAM: There is global hypokinesis of the LV with EF with EF 25%. There appears to be minimal sparing of the bases which may be seen with Takotsubo's however not definitive. There is 1+ MR SELECTIVE CORONARY ARTERIOGRAPHY: LEFT MAIN: The left main is a large caliber vessel which bifurcates into the LAD and circumflex. There is no significant stenosis. LEFT ANTERIOR DESCENDING CORONARY ARTERY: LAD is a large caliber vessel which wraps around to the apex. There is a mid LAD stent with mild 30% instent stenosis however otherwise appears normal. There is JONE 2 flow noted which may be indicative of microvascular dysfunction. LEFT CIRCUMFLEX CORONARY ARTERY: Left circumflex is a moderate caliber vessel without significant stenosis. There is JONE 2 flow noted which may be indicative of microvascular dysfunction. RIGHT CORONARY ARTERY: The right coronary artery is a large caliber vessel which gives off a PDA and PLV branch and is the dominant vessel. There is no significant stenosis. There is JONE 2 flow noted which may be indicative of microvascular dysfunction. FINAL IMPRESSION: 1. Normal coronary arteries as described above. 2. JONE 2 flow noted in all coronary arteries which may be indicative of microvascular dysfunction. 3. Elevated left sided filling pressures 4. Nonischemic cardiomyopathy with EF 25% with predominantly global hypokinesis however mild sparing of the bases which may be seen with Takotsubo's cardiomyopathy. PLAN: 1. Aggressive risk factor modification per most recent ACC/AHA guidelines. 2. Predominantly global hypokinesis however mild sparing of the bases which may be seen with Takotsubo's cardiomyopathy. Clinical correlation recommended. Continue aggressive heart failure regimen and diuresis.
--- NOTE | 2021-11-05 02:01 | P.DS ---
Providers Date of admission: 11/02/21 17:14 Expected date of discharge: 11/04/21 Attending physician: Dashawn Sifuentes Consults: 11/02/21 17:14 Consult Physician Routine Consulting Provider: Rosario Corea Consult Reason/Comments: CHF Do you want consulting provider notified?: Already Contacted Primary care physician: Dashawn Sifuentes Hospital Course: Final diagnosis Shortness of breath secondary to congestive heart failure, acute exacerbation NSTEMI Possible takotsubo cardiomyopathy Acute on chronic congestive heart failure with systolic dysfunction, acute exa cerbation History of atrial fibrillation history of hypertension History of ventricular tachycardia Ischemic cardiomyopathy status post AICD Hyperlipidemia 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 Patient will follow-up with Dr. Sifuentes in the outpatient setting upon discharge. Patient is to also follow up with cardiology as scheduled in one week. Recommend to continue with maximum medical management. Total time taken is greater than 35 minutes. Hospital course This is a 56 year old male who was admitted with shortness of breath and acute CHF exacerbation. Cardiology following closely and patient was found to have NSTEMI and underwent cardiac catheterization which revealed normal coronary arteries and recommending continuing with maximizing medical management and close outpatient follow up. Patient was started on prednisone by Dr. Sifuentes and will continue a short prednisone taper on discharge. Patient advised to refrain from tobacco use. Patient had mildly elevated WBC and scripts provided for outpatient labs in 2-3 days to monitor closely. Patient advised to follow up with pcp this week and cardiology as scheduled. Patient is feeling better and asking when he can go home. Currently no reports of chest pain, shortness of breath, or palpitations. Patient is afebrile. No reports of nausea or vomiting and patient is tolerating diet. Patient will be discharged home today. Guarded prognosis. On exam vital signs are stable. Cardio S1, S2 are muffled. Respiratory system shows diminished breath sounds at the bases with no wheezing or rhonchi noted. Abdomen is soft and nontender. Nervous system shows no focal deficits. Please refer to medication reconciliation sheet for a list of medications. Patient Condition at Discharge: Fair Plan - Discharge Summary Discharge Rx Participant: Yes New Discharge Prescriptions: New Furosemide [Lasix] 40 mg PO BID@0900,1600 30 Days #60 tab predniSONE 10 mg PO DIRECTED #30 tab Continue Ferrous Sulfate [Iron] 325 mg PO DAILY sulfaSALAzine [Sulfasalazine Dr] 1,000 mg PO DAILY HYDROcodone/APAP 10-325MG [[place] 10-325] 1 tab PO TID PRN PRN Reason: Pain Aspirin 81 mg PO DAILY #100 chew Amiodarone [Cordarone] 200 mg PO DAILY lisinopriL [Zestril] 20 mg PO BID Warfarin [Coumadin] 5 mg PO DIRECTED Insulin NPL/Insulin Lispro [humaLOG MIX 75-25 VIAL] 50 unit SQ DAILY Atorvastatin [Lipitor] 40 mg PO DAILY Carvedilol [Coreg] 25 mg PO BID Insulin NPL/Insulin Lispro [humaLOG MIX 75-25 VIAL] 40 unit SQ HS Cyclobenzaprine [Flexeril] 10 mg PO BID PRN PRN Reason: Pain Discontinued amLODIPine BESYLATE/BENAZEPRIL [amLODIPine BESYLATE/BENAZEPRIL 10-40 MG] 1 tab PO DAILY Furosemide [Lasix] 40 mg PO DAILY Discharge Medication List Ferrous Sulfate [Iron] 325 mg PO DAILY 10/22/18 [History] HYDROcodone/APAP 10-325MG [[place] 10-325] 1 tab PO TID PRN 11/15/20 [History] sulfaSALAzine [Sulfasalazine Dr] 1,000 mg PO DAILY 11/15/20 [History] Aspirin 81 mg PO DAILY #100 chew 11/19/20 [Rx] Amiodarone [Cordarone] 200 mg PO DAILY 02/18/21 [History] Atorvastatin [Lipitor] 40 mg PO DAILY 02/18/21 [History] Carvedilol [Coreg] 25 mg PO BID 02/18/21 [History] lisinopriL [Zestril] 20 mg PO BID 02/18/21 [History] Cyclobenzaprine [Flexeril] 10 mg PO BID PRN 11/02/21 [History] Insulin NPL/Insulin Lispro [humaLOG MIX 75-25 VIAL] 40 unit SQ HS 11/02/21 [History] Insulin NPL/Insulin Lispro [humaLOG MIX 75-25 VIAL] 50 unit SQ DAILY 11/02/21 [History] Warfarin [Coumadin] 5 mg PO DIRECTED 11/02/21 [History] Furosemide [Lasix] 40 mg PO BID@0900,1600 30 Days #60 tab 11/04/21 [Rx] predniSONE 10 mg PO DIRECTED #30 tab 11/04/21 [Rx] Follow up Appointment(s)/Referral(s): Dashawn Sifuentes MD [Primary Care Provider] - 1-2 days Kaiser Camarillo MD [STAFF PHYSICIAN] - 11/11/21 3:00 pm Ambulatory/Diagnostic Orders: Complete Blood Count w/diff [LAB.AMB] Time Frame: 3 Days, Location: None Selected Patient Instructions/Handouts: Heart Failure (DC), Left Heart Catheterization (DC) Activity/Diet/Wound Care/Special Instructions: Activity Limited until follow-up Follow-up with primary care provider on discharge Recommend repeat labs of CBC BMP in 2-3 days Continue heart healthy diet and diabetic diet Continue to monitor blood sugars closely and keep a diary for primary care follow-up Follow-up cardiology outpatient as discussed and scheduled Discharge Disposition: HOME SELF-CARE
== END 2021-11-04 18:12 | disposition home or self-care (01) ==
LOC: EC 12:26 → 3SCARD 17:14 → INTOOBSV 17:14 → 3SCARD 20:15 → UNDODISIN 11-04 18:12
PROVIDERS: ADMIT Family Medicine; ATTEND Family Medicine
DX: I11.0 Hypertensive heart disease with heart failure (principal); I50.23 Acute on chronic systolic (congestive) heart failure; J43.9 Emphysema, unspecified; I48.91 Unspecified atrial fibrillation; J96.00 Acute respiratory failure, unspecified whether with hypoxia or hypercapnia; I25.5 Ischemic cardiomyopathy; I21.4 Non-ST elevation (NSTEMI) myocardial infarction; E78.5 Hyperlipidemia, unspecified; E11.9 Type 2 diabetes mellitus without complications; I25.10 Atherosclerotic heart disease of native coronary artery without angina pectoris; D72.829 Elevated white blood cell count, unspecified; R00.0 Tachycardia, unspecified; R79.89 Other specified abnormal findings of blood chemistry; I08.1 Rheumatic disorders of both mitral and tricuspid valves; G89.29 Other chronic pain; M25.551 Pain in right hip; M79.651 Pain in right thigh; F17.210 Nicotine dependence, cigarettes, uncomplicated; Z20.822 Contact with and (suspected) exposure to COVID-19; I95.9 Hypotension, unspecified; M19.90 Unspecified osteoarthritis, unspecified site; M06.9 Rheumatoid arthritis, unspecified; G47.30 Sleep apnea, unspecified; Z95.5 Presence of coronary angioplasty implant and graft; Z86.73 Personal history of transient ischemic attack (TIA), and cerebral infarction without residual deficits; Z86.79 Personal history of other diseases of the circulatory system; Z95.810 Presence of automatic (implantable) cardiac defibrillator; Z79.899 Other long term (current) drug therapy; Z79.82 Long term (current) use of aspirin; Z79.4 Long term (current) use of insulin; Z79.02 Long term (current) use of antithrombotics/antiplatelets; Z79.01 Long term (current) use of anticoagulants; Z71.6 Tobacco abuse counseling
CPT/HCPCS: 96376 ×3; 96366 ×3; 96375 ×2; 96365; 99291; 36415; 94640 ×6; 93005; 93458; 85379; 83880; 80053; 80048; 83605; 83735; 84484; 85025 ×3; 85610 ×2; 85730 ×3; 87040; 87635; 71046; 71275; G0378 ×3; C8929; C1894; J2250; J1940 ×2; J2930; J2001; J3010; J1644 ×6; J7512 ×2; C9113 ×2; Q9950; Q9967 ×2; 93306; 96374

== ENCOUNTER 2021-12-02 07:24 | Day surgery (SDC) | payer OTHER ==
[2021-12-01 10:38] VITALS: BMI 35.2
[~2021-12-02 07:24] MED LIST changes: +LIDOCAINE 1% (10MG/ML) FOR IV START INTRADERMA PRN
[2021-12-02 07:43] VITALS: TEMP 97.9
[2021-12-02 08:02] LABS: Glucose,Whole Blood 164 mg/dL (75-99)
[2021-12-02 08:11] LABS: INR 1.1 (<1.2)
[2021-12-02] MEDS ORDERED: fentaNYL (PF) 50 MCG/ML 2 ML AMP ONE (08:34)
[2021-12-02] MEDS ORDERED: MIDAZOLAM 2 MG/2 ML VIAL ONE (08:34)
[2021-12-02] MEDS ORDERED: ROPIVACAINE 5MG/ML 20ML VIAL ONE (08:34)
[2021-12-02] MEDS ORDERED: methylPREDNISolone ACETATE 40 MG/ML 1 ML VIAL ONE (08:34)
--- NOTE | 2021-12-02 08:48 | P.PCN ---
Date of Procedure: 12/02/21 Procedure(s) Performed: PREOPERATIVE DIAGNOSIS : 1- Lumbar spondylosis with Facet Arthropathy without myelopathy . 2- Lumber degenerative disc disease POSTOPERATIVE DIAGNOSIS: 1- Lumbar spondylosis with Facet Arthropathy without myelopathy . 2- Lumber degenerative disc disease PROCEDURE: Diagnostic Right L4 , and L5 medial branch block under fluoroscopy guidance(fluoroscopy images available in the radiology Department ) ( To target the facet joint between Right L5-S1 ) ANESTHESIA:, Monitored anesthesia care as per anesthesia department. EBL: Minimal COMPLICATION: None PROCEDURE INDICATION: Chronic low back pain secondary to Facet arthropathy unresponsive to conservative treatment. PROCEDURE DESCRIPTION: the patient was seen and identified in the preop holding area , risks and benefits and possible complications of the procedure and alternative were discussed with the patient, and the patient agreed to proceed with the procedure and signed the consent and vital signs monitored during the procedure and fluoroscopy was used to maximize the benefit and accuracy of the needle placement, and sedation was given to decrease patient anxiety, patient was taken to the procedure room and placed in prone position vital signs monitored in the back prepped with chlorhexidine X3 then under strict sterile technique using a right oblique fluoroscopy ,the junction of the transverse process and the superior articulating process of the right L4 , and L5 vertebra which corresponding to the fluoroscopy image of the eye of the Miles dog on the block side for the medial branches and subsequently , after l ocal infiltration of skin and subcu tissuies with Ropivacaine 0.5 % , one mL at each level ,then 22-gauge Quincke-type needles , 2 needle was used , each one of them placed at the junction of the base of the transverse process and the superior articular process at the appropriate level, and the needle was advanced until the periosteum contacted, needle placement confirmed with AP oblique and lateral view and after appropriate needle placement confirmed, and after negative aspiration for heme and CSF and there was no paresthesia 1 mL of Ropivacaine 0.5% mixed with 20 mg Depo-Medrol , then half mL injected at each level after negative aspiration the needle subsequently removed . At the end of the procedure and the needles removed and a bandage applied after the skin was cleaned the cleaning solution patient taken to recovery room in stable condition and monitors in the recovery room for 20-30 minutes and discharged home in stable condition after discharge criteria met and patient w ill follow up with the pain clinic in 2-4 weeks
[2021-12-02] MEDS ORDERED: IV FLUID CONTINUATION 500 ML IV ONE (08:51)
--- NOTE | 2021-12-02 09:01 | FL ---
EXAMINATION TYPE: FL guided pain mgmt statistic DATE OF EXAM: 12/02/2021 HISTORY: Pain Lumbar epidural injection was performed. 5 seconds of fluoroscopic time was provided by the departme nt of radiology. 2 images were provided for documentation purposes.
[2021-12-02 09:14] VITALS: RESP 16
[2021-12-02 09:15] VITALS: BP 123/75; PULSE 79
== END 2021-12-02 09:35 | disposition home or self-care (01) ==
LOC: ORPAIN 07:24
PROVIDERS: ATTEND Specialist
DX: M47.816 Spondylosis without myelopathy or radiculopathy, lumbar region (principal)
CPT/HCPCS: 64493; 85610; J2250; J1030; J3010; J2795

== ENCOUNTER 2022-01-06 10:44 | Day surgery (SDC) | payer OTHER ==
[2022-01-05 13:22] VITALS: BMI 35.6
[2022-01-06 11:16] VITALS: TEMP 97.1
[2022-01-06 11:26] LABS: Glucose,Whole Blood 93 mg/dL (75-99)
[2022-01-06] MEDS ORDERED: ROPIVACAINE 5MG/ML 20ML VIAL ONE (11:58)
[2022-01-06] MEDS ORDERED: MIDAZOLAM 2 MG/2 ML VIAL ONE (11:58)
[2022-01-06] MEDS ORDERED: methylPREDNISolone ACETATE 40 MG/ML 1 ML VIAL ONE (11:58)
--- NOTE | 2022-01-06 12:11 | P.PCN ---
Date of Procedure: 01/06/22 Procedure(s) Performed: PREOPERATIVE DIAGNOSIS : 1- Lumbar spondylosis with Facet Arthropathy without myelopathy . 2- Lumber degenerative disc disease POSTOPERATIVE DIAGNOSIS: 1- Lumbar spondylosis with Facet Arthropathy without myelopathy . 2- Lumber degenerative disc disease PROCEDURE: Diagnostic Right L4 , and L5 medial branch block under fluoroscopy guidance(fluoroscopy images available in the radiology Department ) ( To target the facet joint between Right L5-S1 )#2nd ANESTHESIA:, Monitored anesthesia care as per anesthesia department. EBL: Minimal COMPLICATION: None PROCEDURE INDICATION: Chronic low back pain secondary to Facet arthropathy unresponsive to conservative treatment. PROCEDURE DESCRIPTION: the patient was seen and identified in the preop holding area , risks and benefits and possible complications of the procedure and alternative were discussed with the patient, and the patient agreed to proceed with the procedure and signed the consent and vital signs monitored during the procedure and fluoroscopy was used to maximize the benefit and accuracy of the needle placement, and sedation was given to decrease patient anxiety, patient was taken to the procedure room and placed in prone position vital signs monitored in the back prepped with chlorhexidine X3 then under strict sterile technique using a right oblique fluoroscopy ,the junction of the transverse process and the superior articulating process of the right L4 , and L5 vertebra which corresponding to the fluoroscopy image of the eye of the Miles dog on the block side for the medial branches and subsequently , after local infiltration of skin and subcu tissuies with Ropivacaine 0.5 % , one mL at each level ,then 25-gauge Quincke-type needles , 2 needle was used , each one of them placed at the junction of the base of the transverse process and the superior articular process at the appropriate level, and the needle was advanced until the periosteum contacted, needle placement confirmed with AP oblique and lateral view and after appropriate needle placement confirmed, and after negative aspiration for heme and CSF and there was no paresthesia 1 mL of Ropivacaine 0.5% mixed with 20 mg Depo-Medrol , then half mL injected at each level after negative aspiration the needle subsequently removed . At the end of the procedure and the needles removed and a bandage applied after the skin was cleaned the cleaning solution patient taken to recovery room in stable condition and monitors in the recovery room for 20-30 minutes and discharged home in stable condition after discharge criteria met and patient will follow up with the pain clinic in 2-4 weeks
[2022-01-06] MEDS ORDERED: IV FLUID CONTINUATION 1,000 ML IV ONE (12:17)
--- NOTE | 2022-01-06 12:17 | FL ---
EXAMINATION TYPE: FL guided pain mgmt statistic DATE OF EXAM: 01/06/2022 CLINICAL HISTORY: Low back pain. TECHNIQUE: Fluoroscopy. COMPARISON: None. FINDINGS: Fluoroscopic guidance was provided during pain relief procedure performed by Dr. Juarez . A total of 14 seconds of fluoroscopic time was utilized during the procedure and two spot images a re acquired. Images acquired shows needle localization off the midline L5 level. IMPRESSION: As Above.
[2022-01-06 12:41] VITALS: BP 154/99; PULSE 99; RESP 20
== END 2022-01-06 12:55 ==
LOC: ORPAIN 10:44
PROVIDERS: ATTEND Specialist
DX: M47.816 Spondylosis without myelopathy or radiculopathy, lumbar region (principal); M51.36 Other intervertebral disc degeneration, lumbar region; I25.10 Atherosclerotic heart disease of native coronary artery without angina pectoris; I11.0 Hypertensive heart disease with heart failure; I50.9 Heart failure, unspecified; I48.91 Unspecified atrial fibrillation; E78.5 Hyperlipidemia, unspecified; G47.33 Obstructive sleep apnea (adult) (pediatric); F17.200 Nicotine dependence, unspecified, uncomplicated; M06.9 Rheumatoid arthritis, unspecified; Z95.810 Presence of automatic (implantable) cardiac defibrillator; Z95.5 Presence of coronary angioplasty implant and graft; Z86.73 Personal history of transient ischemic attack (TIA), and cerebral infarction without residual deficits; Z79.899 Other long term (current) drug therapy; Z79.82 Long term (current) use of aspirin; Z79.01 Long term (current) use of anticoagulants; Z79.4 Long term (current) use of insulin
CPT/HCPCS: 64493; J2250; J1030; J2795

== ENCOUNTER → 2022-01-23 | Outpatient (CLI) | payer OTHER ==
[2022-01-23 11:25] VITALS: BP 167/11; PULSE 100; RESP 16; TEMP 98.3
--- NOTE | 2022-01-23 11:26 | P.PN ---
Subjective Progress Note Date: 01/23/22 Principal diagnosis: A 56 yr old male with a history of severe and chronic low back pain secondary to lumbar degenerative disc diseases and lumbar spondylosis with facet arthropathy presents today for evaluation status post right facet blocks medial branch L5-S1 #2. He states he expressed 60% pain relief for 2 days status post procedure. Pain level is currently at 8 out of 10 in intensity, constant, sharp, shooting pain in the lower aspect lumbar spine/tailbone region with radiation of pain to his right hip and numbness down the right lower extremity. Pain is provoked by walking and standing for periods of 20 minutes or more. Pain is alleviated with medications, injections, heat, physical therapy months ago, chiropractic treatments 2-3 months ago, use of a lumbar support brace, reclining and rest. Interventional pain procedures completed include LESI L5-S1, right TF BECCA L5-S1 Patient is currently on [place] Patient denies any side effects of the medication(s), denies excessive drowsiness or sleepiness, denies suicidal ideation and reports that the current pain medication is helping to control the pain and improve activities of daily living. Patient denies any motor or sensory deficits. Patient denies any fever or night sweats, denies any change in the bowel movements or urination. Physical Examination: -Constitutional: Cooperative. Not in acute distress . -HEENT: Neck is supple. No lymphadenopathy. No thyromegaly. Normal thyroid size. Eyes: No ptosis , no icterus, no photophobia. ENT: No auditory deficits. Normal oropharynx. No Thrush. - Respiratory: Chest clear to auscultations bilaterally. No wheezing. No rhonchi. - Cardiovascular: Regular rate and rhythm. S1 / S2 , no S3 , no S4. - Gastrointestinal: Abdomen soft no tenderness. Bowel sounds positive in all four quadrants. No organomegaly. - Genitourinary: Deferred. - Neurologic: Cranial nerve II to XII intact. No focal neurological deficits. - Psychatric: Alert & oriented x 3. Matching mood & appropriate affect. Judgment and insight intact. - Lymphatic: No Lymphadenopathy. - Musculoskeletal: Cervical spine: Muscle bulk/ tone/ strength in the bilateral upper extremities normal. Facet loading test cervical area positive. Lumbar spine: Motor bulk/ tone/ strength lower extremities , thigh and legs : 5/5 Deep tendon reflexes : Normal Knee Jerk. Normal Ankle Jerk . Vertebral body tenderness to palpation over Lumbar Facet Loading Test positive over R L5-S1 with jump reflex Straight Leg Raise: positive at 30 degrees right side/ left side Gaenslen's Test positive Sacral spine : Severe tenderness over the Sacroiliac joint: right side / left side Range of motion: Flexion of the lumbar spine <60 degrees Range of motion: Extension of the lumbar spine <20 degrees Gaenslen's Test positive Desire test: positive right side / left side Assessment and plan: Chronic low back pain secondary to lumbar degenerative disc disease , lumbar spondylosis with facet arthropathy without myelopathy Counseled pt on elevated BP with dangers discussed. Pt acknowledged understanding. He stated he has no headaches, dizziness, vision changes, etc and will follow up with his PCP. He strongly believes his BP is elevated due to his pain level. He states he will have difficulty waiting 3-4 weeks to have the R L5-S1 ablation procedure scheduled and would like some pain relief in the interim. Diclofenac gel, use, side effects and directions discussed. Recommendation of R L5-S1 RFA. Risks, benefits of procedure discussed and pt verbalized understanding. Admits to ASA 81 mg use and medical history of diabetes. Protocol on discontinuation/ continuation of medications naren procedure discussed. All patient questions answered MAPS reviewed and it was appropriate. I have spent 31 minutes on patient care today. Dr Juarez was available by phone for the evaluation of this patient. The time was used to review the medical records including relevant urine studies and Prescription history (MAPs), review of the available imaging, evaluation and examination of the patient, coordination of care with the medical staff and if applicable referring physicians, as well as creation of the medical record PQRS Measure Charge Sheet Mode of Arrival: Wheelchair PQRS Narrative: Smoking Status Current some day smoker Blood Pressure 167/11 Pain Intensity [Right Lower 8 Leg] Hx Alcohol Use (MH) No Home Medications: Ambulatory Orders Ferrous Sulfate [Iron] 325 mg PO DAILY 10/22/18 HYDROcodone/APAP 10-325MG [[place] 10-325] 1 tab PO TID PRN 11/15/20 sulfaSALAzine [Sulfasalazine Dr] 1,000 mg PO DAILY 11/15/20 Aspirin 81 mg PO DAILY #100 chew 11/19/20 Amiodarone [Cordarone] 200 mg PO DAILY 02/18/21 Atorvastatin [Lipitor] 40 mg PO DAILY 02/18/21 Carvedilol [Coreg] 25 mg PO BID 02/18/21 lisinopriL [Zestril] 20 mg PO BID 02/18/21 Cyclobenzaprine [Flexeril] 10 mg PO BID PRN 11/02/21 Insulin NPL/Insulin Lispro [humaLOG MIX 75-25 VIAL] 40 unit SQ HS 11/02/21 Insulin NPL/Insulin Lispro [humaLOG MIX 75-25 VIAL] 50 unit SQ QAM 11/02/21 Warfarin [Coumadin] 5 mg PO DAILY 11/02/21 Furosemide [Lasix] 40 mg PO BID@0900,1600 30 Days #60 tab 11/04/21
== END ==
LOC: PNWHC3 10:54
PROVIDERS: ATTEND Specialist
DX: M51.36 Other intervertebral disc degeneration, lumbar region (principal); M47.816 Spondylosis without myelopathy or radiculopathy, lumbar region; G89.29 Other chronic pain; F17.200 Nicotine dependence, unspecified, uncomplicated
CPT/HCPCS: 99211

== ENCOUNTER 2022-02-18 07:47 | Inpatient (IN) | payer OTHER ==
[2022-02-18] MEDS ORDERED: IPRATROPIUM-ALBUTEROL 3 ML NEB INHALATION STA (08:04)
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
--- NOTE | 2022-02-18 08:37 | XR ---
EXAMINATION TYPE: XR chest 2V DATE OF EXAM: 02/18/2022 COMPARISON: 11/02/2021 INDICATION: Difficulty breathing TECHNIQUE: Frontal and lateral views of the chest are obtained. FINDINGS: The heart size is normal. The pulmonary vasculature is normal. The lungs are clear. IMPRESSION: 1. No acute pulmonary process.
[2022-02-18 08:52] LABS: INR 1.3 (<1.2); Partial Thromboplastin Time 24.5 sec (22.0-30.0); Prothrombin Time 13.6 sec (9.0-12.0)
[2022-02-18 08:54] LABS: ALT 12 U/L (4-49); AST 20 U/L (17-59); African American GFR (CKD) >90 (>60 ml/min/1.73 sqM); Albumin 3.8 g/dL (3.5-5.0); Alkaline Phosphatase 83 U/L (38-126); Anion Gap 10 mmol/L; Blood Urea Nitrogen 9 mg/dL (9-20); Carbon Dioxide 22 mmol/L (22-30); Chloride 107 mmol/L (98-107); Glucose 116 mg/dL (74-99); Magnesium 1.6 mg/dL (1.6-2.3); Non-African American GFR(CKD) >90 (>60 ml/min/1.73 sqM); Potassium 3.7 mmol/L (3.5-5.1); Sodium 139 mmol/L (137-145); Total Bilirubin 1.2 mg/dL (0.2-1.3)
[2022-02-18 08:57] LABS: Anisocytosis Slight; Basophils % (A) 1 %; Eosinophils # (A) 0.2 k/uL (0-0.7); Eosinophils % (A) 3 %; HGB 12.8 gm/dL (13.0-17.5); Hypochromasia Slight; Lymphocytes # (A) 1.5 k/uL (1.0-4.8); Lymphocytes % (A) 22 %; MCHC 31.3 g/dL (31.0-37.0); MCV 83.3 fL (80.0-100.0); Mean Platelet Volume 9.9; Monocytes # (A) 0.7 k/uL (0-1.0); Monocytes % (A) 11 %; Neutrophils % (A) 62 %; Platelet Count 228 k/uL (150-450); RBC 4.93 m/uL (4.30-5.90); RDW 16.6 % (11.5-15.5); WBC 6.5 k/uL (3.8-10.6)
[2022-02-18] MEDS ORDERED: LORazepam 2 MG/ML INJ IV STA (09:19)
--- NOTE | 2022-02-18 10:10 | CT ---
CT CHEST FOR PULMONARY EMBOLISM. EXAMINATION TYPE: CT angio chest DATE OF EXAM: 02/18/2022 INDICATION: Dyspnea CT DLP: 508.5 mGycm, Automated exposure control for dose reduction was used. CONTRAST: Patient injected with 100 ml mL of Isovue 370. COMPARISON: 11/02/2021 TECHNIQUE: CT of the chest is performed on a spiral scan at 2 mm thick sections. Study is performed with intravenous contrast timed for evaluation for pulmonary embolism. This will limit additional po rtions of the evaluation. 3-D MIP images reconstructed by the technologist are reviewed on the compu ter in the coronal and sagittal planes. FINDINGS: No persistent filling defects are evident to suggest an acute pulmonary embolism. Small bilateral ple ural effusions are present. Enlarged aortopulmonic window lymph nodes are present. The ascending aorta diameter at the level of the main pulmonary artery is 4.1 cm. The main pulmonary artery diameter at the bifurcation is 3.[address] section through the upper abdomen are unremarkable. IMPRESSIONS: 1. No acute pulmonary embolism. 2. Small bilateral pleural effusions. 3. Enlarged mediastinal adenopathy, increasing from October 2021
[2022-02-18] MEDS ORDERED: NITROGLYCERIN OINT 1 INCH/GM PACKET TOPICAL STA (10:11)
[2022-02-18] MEDS ORDERED: FUROSEMIDE 10 MG/ML 4 ML VIAL IV STA (10:11)
[2022-02-18] MEDS ORDERED: ENALAPRILAT 1.25 MG/ML 1 ML VIAL IVP STA (10:12)
[2022-02-18] MEDS ORDERED: ASPIRIN 325 MG TAB PO STA (10:17)
[2022-02-18] MEDS ORDERED: IPRATROPIUM-ALBUTEROL 3 ML NEB INHALATION PRN (10:17)
[2022-02-18] MEDS ORDERED: methylPREDNISolone SOD SUCCI 125 MG/2 ML VIAL IV STA (10:17)
[2022-02-18] MEDS: IPRATROPIUM-ALBUTEROL 3 ML NEB INHALATION SCH ×3 (10:35→20:11)
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
[2022-02-18] MEDS ORDERED: lisinopriL 20 MG TAB PO SCH (13:30)
[2022-02-18] MEDS: ATORVASTATIN 40 MG TAB PO SCH (13:46)
[2022-02-18] MEDS: carvediloL 12.5 MG TAB PO SCH ×2 (13:46→18:34)
[2022-02-18] MEDS: AMIODARONE 200 MG TAB PO SCH (13:46)
[2022-02-18] MEDS: NITROGLYCERIN OINT 1 INCH/GM PACKET TOPICAL SCH ×3 (14:01→22:11)
[2022-02-18 15:20] LABS: Glucose,Whole Blood 171 mg/dL (75-99)
[2022-02-18] MEDS ORDERED: LORATADINE 10 MG TAB PO PRN (15:57)
[2022-02-18] MEDS ORDERED: CYCLOBENZAPRINE 10 MG TAB PO PRN (15:57)
[2022-02-18] MEDS ORDERED: FUROSEMIDE 40 MG TAB PO SCH (16:00)
--- NOTE | 2022-02-18 16:25 | HP ---
HISTORY AND PHYSICAL CHIEF COMPLAINT: Difficulty breathing. HISTORY OF PRESENT ILLNESS: This is another admission for this 56-year-old -[place] male. He has a history of COPD and hypertension. He came to the emergency room complaining of severe shortness of breath. In the emergency room, his laboratory studies were unremarkable. His hemoglobin was 12.8. Chest x-ray failed to demonstrate any acute process. His CTA was also normal. Electrocardiogram similarly was unremarkable. He was in sinus rhythm. His blood pressure was extremely high at 164/123. Troponins were normal, but his BNP was 3290. Review of systems is otherwise unremarkable. Past medical history, family history, and personal and social histories are similarly unremarkable. He does smoke, but he has been trying to cut down. He denies heavy consumption of alcohol or use of any other drugs. PHYSICAL EXAMINATION: Blood pressure is 173/115, pulse of 110, respirations of 18, and he is afebrile. In general he appears to be very short of breath. Skin is dry. Head, ears, eyes, nose, mouth and throat are normal. Neck veins are not distended. Chest demonstrates decreased breath sounds with scattered rales throughout. Cardiac exam demonstrates tachycardia. The abdomen is protuberant, soft and nontender. Extremities are normal. Neurologically he is intact. He is admitted to the hospital with diagnoses: 1. Acute congestive heart failure. 2. Uncontrolled hypertension. 3. Chronic obstructive pulmonary disease. PLAN: 1. Bedrest. 2. IV fluids. 3. Diuresis. 4. Control hypertension. MMODL / IJN: [id number] /
[2022-02-18] MEDS: amLODIPine 10 MG TAB PO SCH (16:35)
[2022-02-18] MEDS: HYDROcodone/APAP 10-325MG 1 EACH TAB PO SCH ×2 (16:35→22:09)
[2022-02-18] MEDS: methylPREDNISolone SOD SUCCI 125 MG/2 ML VIAL IV SCH ×2 (16:36→22:09)
[2022-02-18] MEDS: lisinopriL 20 MG TAB PO SCH (16:38)
[2022-02-18] MEDS ORDERED: WARFARIN 5 MG TAB PO ONE (18:00)
[2022-02-18] MEDS: FUROSEMIDE 10 MG/ML 4 ML VIAL IV SCH (18:00)
[2022-02-18 21:49] LABS: Glucose,Whole Blood 248 mg/dL (75-99)
[2022-02-18] MEDS: INSULN ASP PRT/INSULIN ASPART 100 UNIT/ML 10 ML VIAL SQ SCH (22:11)
[2022-02-19] MEDS: FUROSEMIDE 10 MG/ML 4 ML VIAL IV SCH ×3 (00:43→21:32)
[2022-02-19] MEDS: methylPREDNISolone SOD SUCCI 125 MG/2 ML VIAL IV SCH ×2 (03:29→09:18)
[2022-02-19 06:06] LABS: Glucose,Whole Blood 146 mg/dL (75-99)
[2022-02-19] MEDS: carvediloL 12.5 MG TAB PO SCH ×2 (06:07→17:06)
[2022-02-19 07:35] LABS: INR 1.3 (<1.2); Prothrombin Time 13.7 sec (9.0-12.0)
[2022-02-19] MEDS: IPRATROPIUM-ALBUTEROL 3 ML NEB INHALATION SCH ×4 (08:47→20:27)
[2022-02-19] MEDS ORDERED: ASPIRIN 325 MG TAB PO SCH (09:00)
[2022-02-19] MEDS: lisinopriL 20 MG TAB PO SCH (09:16)
[2022-02-19] MEDS: FERROUS SULFATE 325 MG TAB PO SCH (09:16)
[2022-02-19] MEDS: sulfaSALAzine 500 MG TAB PO SCH ×2 (09:16→23:55)
[2022-02-19] MEDS: HYDROcodone/APAP 10-325MG 1 EACH TAB PO SCH ×3 (09:16→21:31)
[2022-02-19] MEDS: amLODIPine 10 MG TAB PO SCH (09:16)
[2022-02-19] MEDS: INSULN ASP PRT/INSULIN ASPART 100 UNIT/ML 10 ML VIAL SQ SCH ×2 (09:17→21:32)
[2022-02-19] MEDS: ASPIRIN 81 MG PO SCH (09:17)
[2022-02-19] MEDS: ATORVASTATIN 40 MG TAB PO SCH (09:17)
[2022-02-19] MEDS: AMIODARONE 200 MG TAB PO SCH (09:17)
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
--- NOTE | 2022-02-19 11:28 | P.PN ---
Subjective Progress Note Date: 02/19/22 56 year old male with history of coronary artery disease status post PCI mid LAD 8-10 years ago in [place], ischemic cardiomyopathy status post AICD, history of ventricular tachycardia, LV thrombus maintained on Coumadin, CVA, hypertension, dyslipidemia, diabetes mellitus and nicotine dependence. He pr eviously had cardiomyopathy with improved EF and . cardiac catheterization was done in October 2021 and the patient was found to have normal coronary arteries as described above, JONE 2 flow noted in all coronary arteries which may be indicative of microvascular dysfunction, Elevated left sided filling pressures, Nonischemic cardiomyopathy with EF 25% with predominantly global hypokinesis however mild sparing of the bases which may be seen with Takotsubo's cardiomyopathy.The patient is a chronic smoker and continues smoker 1 pack of cigarettes a day. He came into the emergency department this morning for worsening shortness of breath, increased dyspnea cough chest tightness and wheezing. Presentation was typical of COPD and CHF exacerbation as the patient had a CT angiogram of the chest that showed some interstitial edema and background COPD. No evidence of any pulmonary embolism. The proBNP level was 3290, troponin was 0.032 respectively and the rest of the electrodes are all normal. Correlation profile was normal. The white cell count of 6.5 with a hemoglobin of 12.8. The patient is currently on DuoNeb about treatments around the clock. The patient on IV Solu-Medrol. Responding well to diuretics. He is diabetic and his on long-acting insulin in addition to a combination of amiodarone 200 mg by mouth daily, Lipitor 40 mg by mouth daily, lisinopril 20 mg twice a day and he is on long-term articulation with warfarin 5 mg by mouth daily regarding history approximately atrial fibrillation. The COVID 19 testing was negative by PCR. Influenza screen was also negative. On today's evaluation of 02/19/2022, the patient is feeling better and the patient is less short of breath and the patient remains on room air oxygen. He was taken off the oxygen as the patient continued to improve. No chest pain. No shortness of breath. He continues to have crackles in lung bases bilaterally. Bronchospasm wheezing is completely subsided. The PT/INR is subtherapeutic at this point in time. The INR is at 1.3. The rest of the labs are still pending for now. No focal neurological deficits. No chest pain. No angina. Objective - Vital Signs Vital signs: Vital Signs Temp 98.7 F 02/19/22 03:32 Pulse 80 02/19/22 08:58 Resp 17 02/19/22 03:32 BP 121/69 02/19/22 03:32 Pulse Ox 98 02/19/22 03:32 FiO2 21 02/18/22 20:11 Intake & Output 02/18/22 02/19/22 02/19/22 18:59 06:59 18:59 Intake Total 300 118 Balance 300 118 Weight 97.069 kg 91 kg Intake: Oral 300 118 Other: # Voids 2 - Exam Gen. appearance the patient is a mild degree of respiratory distress, no use of extremities and muscles of breathing at this point in time. The patient is currently on room air oxygen. Head exam was generally normal. There was no scleral icterus or corneal arcus. Mucous membranes were moist. Neck was supple and with jugular venous distension, thyromegaly, or carotid bruits. Carotids were easily palpable bilaterally. There was no adenopathy. Lungs were clear to auscultation and percussion, and with normal diaphragmatic excursion. No wheezes or rales were noted. Cardiac exam revealed the PMI to be normally situated and sized. The rhythm was regular and no extrasystoles were noted during several minutes of auscultation. The first and second heart sounds were normal and physiologic splitting of the second heart sound was noted. There were no murmurs, rubs, clicks, or gallops. Overall the heart sounds are quite distant at this point in time. Abdominal exam revealed normal bowel sounds. The abdomen was soft, non-tender, and without masses, organomegaly, or appreciable enlargement of the abdominal ao rta. Examination of the extremities revealed easily palpable radial, femoral and pedal pulses. There was no cyanosis, clubbing or edema. Examination of the skin revealed no evidence of significant rashes, suspicious appearing nevi or other concerning lesions. Neurologically, the patient is awake and alert and the patient does not have any focal neurologic - Labs CBC & Chem 7: 02/18/22 08:21 02/18/22 08:21 Labs: Abnormal Lab Results - Last 24 Hours (Table) 02/18/22 02/18/22 02/19/22 Range/Units 15:19 21:29 05:45 PT (9.0-12.0) sec INR (<1.2) POC Glucose (mg/dL) 171 H 248 H 146 H (75-99) mg/dL 02/19/22 Range/Units 06:28 PT 13.7 H (9.0-12.0) sec INR 1.3 H (<1.2) POC Glucose (mg/dL) (75-99) mg/dL Assessment and Plan Plan: Acute exacerbation of COPD/CHF with secondary shortness of breath. The patient was quite bronchospastic and wheezy at time of admission. At the same time the patient had abated proBNP level and a CT angiogram showed no evidence of any pulmonary embolism. There was a component of COPD in the background addition to increased interstitial edema. Clinically the patient is much improved with a combination of bronchodilators and steroids and diuretics. The patient is currently on room air oxygen. No significant shortness of breath. Awaiting labs from today. Acute hypoxic respiratory failure secondary to above, currently on room air oxygen COPD History of nonischemic cardiomyopathy with an ejection fraction of 25% with global hypokinesis Coronary artery disease with previous PCI of the LAD LV thrombus along with history of proximal atrial fibrillation maintained on long-term and to coagulation with warfarin History of CVA Hypertension Hyperlipidemia Diabetes mellitus Smoker History of AICD placement with previous history of ventricular tachycardia Plan Patient is currently on room air oxygen This continued IV Solu-Medrol Reduce the Lasix dose of 40 mg every 12 hours Awaiting electrolytes Smoking cessation counseling was done DuoNeb nebulized him to the clock Restart diabetic medications including NovoLog 75/25 mix ANNMARIE inhibitor as in the form of lisinopril for tighter blood pressure control Continue amiodarone and Coreg Continue warfarin and monitor the PT/INR which is currently subtherapeutic Cardiology consultation We'll continue to follow
[2022-02-19] MEDS: NITROGLYCERIN OINT 1 INCH/GM PACKET TOPICAL SCH ×4 (11:38→23:56)
[2022-02-19 11:49] LABS: Glucose,Whole Blood 171 mg/dL (75-99)
[2022-02-19 16:40] LABS: Glucose,Whole Blood 153 mg/dL (75-99)
[2022-02-19] MEDS ORDERED: WARFARIN 3 MG TAB PO ONE (18:00)
[2022-02-19 21:17] LABS: Glucose,Whole Blood 167 mg/dL (75-99)
[2022-02-20 06:16] LABS: Glucose,Whole Blood 115 mg/dL (75-99)
[2022-02-20 06:52] LABS: INR 1.5 (<1.2); Prothrombin Time 15.7 sec (9.0-12.0)
[2022-02-20] MEDS: carvediloL 12.5 MG TAB PO SCH ×2 (07:42→17:29)
[2022-02-20] MEDS: IPRATROPIUM-ALBUTEROL 3 ML NEB INHALATION SCH ×4 (07:44→20:15)
[2022-02-20] MEDS: NITROGLYCERIN OINT 1 INCH/GM PACKET TOPICAL SCH ×4 (09:40→20:47)
[2022-02-20] MEDS: FUROSEMIDE 10 MG/ML 4 ML VIAL IV SCH (09:40)
[2022-02-20] MEDS: FERROUS SULFATE 325 MG TAB PO SCH (09:41)
[2022-02-20] MEDS: amLODIPine 10 MG TAB PO SCH (09:41)
[2022-02-20] MEDS: ASPIRIN 81 MG PO SCH (09:41)
[2022-02-20] MEDS: ATORVASTATIN 40 MG TAB PO SCH (09:41)
[2022-02-20] MEDS: INSULN ASP PRT/INSULIN ASPART 100 UNIT/ML 10 ML VIAL SQ SCH ×2 (09:41→20:42)
[2022-02-20] MEDS: AMIODARONE 200 MG TAB PO SCH (09:41)
[2022-02-20] MEDS: HYDROcodone/APAP 10-325MG 1 EACH TAB PO SCH ×3 (09:41→20:47)
[2022-02-20] MEDS: sulfaSALAzine 500 MG TAB PO SCH ×2 (09:42→20:47)
[2022-02-20] MEDS: lisinopriL 20 MG TAB PO SCH (09:42)
--- NOTE | 2022-02-20 11:25 | P.PN ---
Subjective Progress Note Date: 02/20/22 56 year old male with history of coronary artery disease status post PCI mid LAD 8-10 years ago in [place], ischemic cardiomyopathy status post AICD, history of ventricular tachycardia, LV thrombus maintained on Coumadin, CVA, hypertension, dyslipidemia, diabetes mellitus and nicotine dependence. He pr eviously had cardiomyopathy with improved EF and . cardiac catheterization was done in October 2021 and the patient was found to have normal coronary arteries as described above, JONE 2 flow noted in all coronary arteries which may be indicative of microvascular dysfunction, Elevated left sided filling pressures, Nonischemic cardiomyopathy with EF 25% with predominantly global hypokinesis however mild sparing of the bases which may be seen with Takotsubo's cardiomyopathy.The patient is a chronic smoker and continues smoker 1 pack of cigarettes a day. He came into the emergency department this morning for worsening shortness of breath, increased dyspnea cough chest tightness and wheezing. Presentation was typical of COPD and CHF exacerbation as the patient had a CT angiogram of the chest that showed some interstitial edema and background COPD. No evidence of any pulmonary embolism. The proBNP level was 3290, troponin was 0.032 respectively and the rest of the electrodes are all normal. Correlation profile was normal. The white cell count of 6.5 with a hemoglobin of 12.8. The patient is currently on DuoNeb about treatments around the clock. The patient on IV Solu-Medrol. Responding well to diuretics. He is diabetic and his on long-acting insulin in addition to a combination of amiodarone 200 mg by mouth daily, Lipitor 40 mg by mouth daily, lisinopril 20 mg twice a day and he is on long-term articulation with warfarin 5 mg by mouth daily regarding history approximately atrial fibrillation. The COVID 19 testing was negative by PCR. Influenza screen was also negative. On today's evaluation of 02/19/2022, the patient is feeling better and the patient is less short of breath and the patient remains on room air oxygen. He was taken off the oxygen as the patient continued to improve. No chest pain. No shortness of breath. He continues to have crackles in lung bases bilaterally. Bronchospasm wheezing is completely subsided. The PT/INR is subtherapeutic at this point in time. The INR is at 1.3. The rest of the labs are still pending for now. No focal neurological deficits. No chest pain. No angina. 02/20/2022, the patient has no complaints. Currently on room air oxygen. Much improved. No symptoms of shortness of breath or chest pain. He was taken off the IV Solu Medrol and the patient will be switched to oral Lasix. PT/INR is at 1.5. The overall fluid balance is been -1.6 L over the past 24 hours. No angina. No palpitation. No chest pain. Objective - Vital Signs Vital signs: Vital Signs Temp 97.5 F L 02/20/22 08:00 Pulse 87 02/20/22 08:00 Resp 17 02/20/22 08:00 BP 100/65 02/20/22 08:00 Pulse Ox 96 02/20/22 08:00 FiO2 21 02/18/22 20:11 Intake & Output 02/19/22 02/20/22 02/20/22 18:59 06:59 18:59 Intake Total 718 240 Output Total 1150 1225 Balance -432 -1225 240 Intake: Oral 718 240 Output: Urine 1150 1225 Other: Voiding Method Urinal # Voids 2 - Exam Gen. appearance the patient is a mild degree of respiratory distress, no use of extremities and muscles of breathing at this point in time. The patient is currently on room air oxygen. Head exam was generally normal. There was no scleral icterus or corneal arcus. Mucous membranes were moist. Neck was supple and with jugular venous distension, thyromegaly, or carotid bruits. Carotids were easily palpable bilaterally. There was no adenopathy. Lungs were clear to auscultation and percussion, and with normal diaphragmatic excursion. No wheezes or rales were noted. Cardiac exam revealed the PMI to be normally situated and sized. The rhythm was regular and no extrasystoles were noted during several minutes of auscultation. The first and second heart sounds were normal and physiologic splitting of the second heart sound was noted. There were no murmurs, rubs, clicks, or gallops. Overall the heart sounds are quite distant at this point in time. Abdominal exam revealed normal bowel sounds. The abdomen was soft, non-tender, and without masses, organomegaly, or appreciable enlargement of the abdominal aorta. Examination of the extremities revealed easily palpable radial, femoral and pedal pulses. There was no cyanosis, clubbing or edema. Examination of the skin revealed no evidence of significant rashes, suspicious appearing nevi or other concerning lesions. Neurologically, the patient is awake and alert and the patient does not have any focal neurologic - Labs CBC & Chem 7: 02/18/22 08:21 02/18/22 08:21 Labs: Abnormal Lab Results - Last 24 Hours (Table) 02/19/22 02/19/22 02/19/22 Range/Units 11:47 16:39 21:10 PT (9.0-12.0) sec INR (<1.2) POC Glucose (mg/dL) 171 H 153 H 167 H (75-99) mg/dL 02/20/22 02/20/22 Range/Units 06:11 06:15 PT 15.7 H (9.0-12.0) sec INR 1.5 H (<1.2) POC Glucose (mg/dL) 115 H (75-99) mg/dL Assessment and Plan Plan: Acute exacerbation of COPD/CHF with secondary shortness of breath. The patient was quite bronchospastic and wheezy at time of admission. At the same time the patient had abated proBNP level and a CT angiogram showed no evidence of any pulmonary embolism. There was a component of COPD in the background addition to increased interstitial edema. Clinically the patient is much improved with a combination of bronchodilators and steroids and diuretics. The patient is currently on room air oxygen. No significant shortness of breath. Awaiting lab s from today. Acute hypoxic respiratory failure secondary to above, currently on room air oxygen COPD History of nonischemic cardiomyopathy with an ejection fraction of 25% with global hypokinesis Coronary artery disease with previous PCI of the LAD LV thrombus along with history of proximal atrial fibrillation maintained on long-term and to coagulation with warfarin History of CVA Hypertension Hyperlipidemia Diabetes mellitus Smoker History of AICD placement with previous history of ventricular tachycardia Plan Patient is currently on room air oxygen Stop the IV Lasix and switch this patient to oral Lasix 40 mg twice a day Awaiting electrolytes from today in the patient's PT/INR remains subtherapeutic nevertheless this can be adjusted also on outpatient basis Smoking cessation counseling was done DuoNeb nebulized him to the clock diabetic medications including NovoLog 75/25 mix Home medications of been resumed and the patient possibly can go home today after obtaining a cardiology clearance
--- NOTE | 2022-02-20 12:17 | P.PN ---
Subjective HISTORY OF PRESENTING ILLNESS Patient is a pleasant 56-year-old male with history of prior PCI of the mid LAD 10 years ago in [place], ischemic cardiomyopathy, status post AICD, history of ventricular tachycardia, LV thrombus maintained on Coumadin, CVA, hypertension, hyperlipidemia, diabetes mellitus, tobacco abuse who normally follows with Dr. Parish posada. Patient was seen last October and was noted to have mildly elevated troponins up to 0.7 and therefore heart catheterization was recommended which showed a patent mid LAD stent and otherwise fairly normal coronary arteries with only 30% in-stent stenosis. There was JONE 2 flow noted possibly consistent with microvascular disease. Patient has been doing fairly well however does not like taking the Lasix secondary to frequent urination and therefore has stopped taking it recently. He therefore started noticing increased shortness breath much worse on Sunday and therefore came to emergency department. ProBNP was noted to be elevated and findings consistent with heart failure and was placed on Lasix. He is feeling better after receiving diuretics. Hemoglobin 12.8, creatinine 0.8, troponin 0.03, proBNP 3200. EKG shows sinus tachycardia at a rate of 10 7 bpm, nonspecific T-wave abnormalities with borderline LVH. Monitor shows sinus rhythm with nonsustained and trigger tachycardic episode. 02/20 Patient seen and examined. Patient states he is feeling much better. Feels back to his baseline. Has had good urine output with the Lasix. Was changed over to oral Lasix for this afternoon dose by pulmonology. PHYSICAL EXAMINATION Vital signs reviewed. CONSTITUTIONAL: No apparent distress. HEENT: Head is normocephalic. Pupils are equal, round. Sclerae anicteric. Mucous membranes of the mouth are moist. No JVD. No carotid bruit. CHEST EXAMINATION: Lungs are clear to auscultation. No chest wall tenderness is noted on palpation or with deep breathing. HEART EXAMINATION: Regular rate and rhythm. S1, S2 heard. No murmurs, gallops or rub. ABDOMEN: Soft, nontender. Positive bowel sounds. EXTREMITIES: 2+ peripheral pulses, no lower extremity edema and no calf te nderness. NEUROLOGIC EXAMINATION: Patient is awake, alert and oriented x3. ASSESSMENT 1. Acute on chronic systolic heart failure 2. Hypertension 3. Acute on chronic respiratory failure related to heart failure 4. Prior history of PCI of LAD however otherwise relatively normal coronary arteries 5. Medical noncompliance, has not been taking home Lasix 6. Status post AICD 7. Nonsustained episodes of VT PLAN Patient stopped his home diuretics and therefore presented with heart failure. He appears to be diuresing well and is stable for discharge home on Lasix 40 mg twice a day and remainder of heart failure regimen. Follow-up in office in 1 week. Objective - Vital Signs Vital signs: Vital Signs Temp 97.8 F 02/20/22 12:00 Pulse 90 02/20/22 12:00 Resp 19 02/20/22 12:00 BP 106/66 02/20/22 12:00 Pulse Ox 94 L 02/20/22 12:00 FiO2 21 02/18/22 20:11 Intake & Output 02/19/22 02/20/22 02/20/22 18:59 06:59 18:59 Intake Total 718 240 Output Total 1150 1225 Balance -432 -1225 240 Intake: Oral 718 240 Output: Urine 1150 1225 Other: Voiding Method Urinal # Voids 2 - Labs CBC & Chem 7: 02/18/22 08:21 02/18/22 08:21 Labs: Abnormal Lab Results - Last 24 Hours (Table) 02/19/22 02/19/22 02/20/22 Range/Units 16:39 21:10 06:11 PT (9.0-12.0) sec INR (<1.2) POC Glucose (mg/dL) 153 H 167 H 115 H (75-99) mg/dL 02/20/22 Range/Units 06:15 PT 15.7 H (9.0-12.0) sec INR 1.5 H (<1.2) POC Glucose (mg/dL) (75-99) mg/dL
--- NOTE | 2022-02-20 15:01 | XR ---
EXAMINATION TYPE: XR chest 2V DATE OF EXAM: 02/20/2022 COMPARISON: CT chest 02/18/2022 chest radiograph 02/18/2022 HISTORY: Congestive heart failure, chronic obstructive pulmonary disease TECHNIQUE: Frontal and lateral views of the chest are obtained. FINDINGS: Single-lead ICD is present with power pack overlying the left chest. The previously describ ed pulmonary effusions are not well visualized. There is no focal air space opacity, pleural effusion , or pneumothorax seen. The cardiac silhouette size is within normal limits. Moderate multilevel de generative changes of the thoracic spine. IMPRESSION: No acute cardiopulmonary process.
[2022-02-20 15:55] VITALS: BMI 33.3
[2022-02-20 16:15] LABS: Anisocytosis Slight; Basophils # (A) 0.1 k/uL (0-0.2); Basophils % (A) 0 %; Eosinophils % (A) 0 %; HGB 13.5 gm/dL (13.0-17.5); Hypochromasia Marked; Lymphocytes # (A) 1.4 k/uL (1.0-4.8); Lymphocytes % (A) 7 %; MCH 26.1 pg (25.0-35.0); MCHC 30.1 g/dL (31.0-37.0); MCV 86.8 fL (80.0-100.0); Mean Platelet Volume 10.3; Monocytes # (A) 1.6 k/uL (0-1.0); Monocytes % (A) 8 %; Neutrophils # (A) 16.5 k/uL (1.3-7.7); Neutrophils % (A) 83 %; Platelet Count 260 k/uL (150-450); RBC 5.18 m/uL (4.30-5.90); RDW 16.7 % (11.5-15.5); WBC 19.8 k/uL (3.8-10.6)
[2022-02-20 16:20] LABS: Calcium 9.6 mg/dL (8.4-10.2); Potassium 4.3 mmol/L (3.5-5.1); Total Bilirubin 0.3 mg/dL (0.2-1.3); Total Protein 7.2 g/dL (6.3-8.2)
[2022-02-20] MEDS: FUROSEMIDE 40 MG TAB PO SCH (16:45)
[2022-02-20 16:53] LABS: Glucose,Whole Blood 61 mg/dL (75-99)
[2022-02-20 17:11] LABS: Glucose,Whole Blood 87 mg/dL (75-99)
[2022-02-20] MEDS ORDERED: WARFARIN 3 MG TAB PO ONE (18:00)
--- NOTE | 2022-02-20 18:21 | PN ---
PROGRESS NOTE DATE OF SERVICE: 02/19/2022 CHIEF COMPLAINT: Acute congestive heart failure and pulmonary edema. HISTORY OF PRESENT ILLNESS: This gentleman is doing much better. Breathing has greatly improved. Blood pressure hs improved. REVIEW OF SYSTEMS: He denies any chest pain or any shortness of breath at this time. PHYSICAL EXAMINATION: Hydration is excellent. Chest demonstrates occasional rales and rhonchi throughout. Cardiac exam is unremarkable. The abdomen is soft. IMPRESSION: 1. Acute congestive heart failure. 2. Exacerbation of chronic obstructive pulmonary disease. PLAN: Continue diuresis along with updrafts and increase activity and diet. MMODL / IJN: [id number] /
--- NOTE | 2022-02-20 18:31 | PN ---
PROGRESS NOTE CHIEF COMPLAINT: Acute congestive heart failure and COPD. HISTORY OF PRESENT ILLNESS: This gentleman is doing better. Breathing is improving. He has had no further chest pain. PHYSICAL EXAMINATION: His chest is improving. There are a few scattered rales. The cardiac exam is normal at this time. The abdomen is soft and nontender. Extremities are normal. IMPRESSION: 1. Acute congestive heart failure. 2. Exacerbation of chronic obstructive pulmonary disease. PLAN: Continue to stabilize and increase activity. Probably discharge tomorrow. MMODL / IJN: [id number] /
[2022-02-20 20:24] LABS: Glucose,Whole Blood 81 mg/dL (75-99)
[2022-02-21 05:57] LABS: Glucose,Whole Blood 104 mg/dL (75-99)
[2022-02-21] MEDS: carvediloL 12.5 MG TAB PO SCH (06:25)
[2022-02-21] MEDS: NITROGLYCERIN OINT 1 INCH/GM PACKET TOPICAL SCH (07:37)
[2022-02-21] MEDS: IPRATROPIUM-ALBUTEROL 3 ML NEB INHALATION SCH ×2 (07:51→11:47)
[2022-02-21] MEDS: HYDROcodone/APAP 10-325MG 1 EACH TAB PO SCH (09:15)
[2022-02-21] MEDS: AMIODARONE 200 MG TAB PO SCH (09:15)
[2022-02-21] MEDS: ASPIRIN 81 MG PO SCH (09:15)
[2022-02-21] MEDS: amLODIPine 10 MG TAB PO SCH (09:15)
[2022-02-21] MEDS: ATORVASTATIN 40 MG TAB PO SCH (09:15)
[2022-02-21] MEDS: FERROUS SULFATE 325 MG TAB PO SCH (09:15)
[2022-02-21] MEDS: FUROSEMIDE 40 MG TAB PO SCH (09:16)
[2022-02-21] MEDS: sulfaSALAzine 500 MG TAB PO SCH (09:16)
[2022-02-21] MEDS: lisinopriL 20 MG TAB PO SCH (09:16)
[2022-02-21] MEDS: INSULN ASP PRT/INSULIN ASPART 100 UNIT/ML 10 ML VIAL SQ SCH (09:37)
[2022-02-21 10:48] LABS: INR 2.2 (<1.2); Prothrombin Time 22.3 sec (9.0-12.0)
[2022-02-21 11:30] VITALS: BP 102/70; PULSE 75; RESP 19; TEMP 98.4
[2022-02-21 11:44] LABS: Glucose,Whole Blood 86 mg/dL (75-99)
--- NOTE | 2022-02-21 13:29 | CA ---
Transthoracic Echo Report Name: Douglas Kruger Age: 56 Gender: M : 1965 Exam Date: 02/21/2022 09:34 Exam Location: [facility] Ht (in): 65 Wt (lb): 200 Ordering Physician: Robert Olson DO Attending/Referring Phys: Dental Surgery Doctor Rachelle Moya RDCS Procedure CPT: Indications: Heart failure Cardiac Hx: Technical Quality: Fair Contrast 1: Total Dose (mL): Contrast 2: Total Dose (mL): MEASUREMENTS (Male / Female) Normal Values 2D ECHO LV Diastolic Diameter PLAX 4.7 cm 4.2 - 5.9 / 3.9 - 5.3 cm LV Systolic Diameter PLAX 3.8 cm IVS Diastolic Thickness 1.3 cm 0.6 - 1.0 / 0.6 - 0.9 cm LVPW Diastolic Thickness 1.9 cm 0.6 - 1.0 / 0.6 - 0.9 cm LV Relative Wall Thickness 0.7 RV Internal Dim ED PLAX 3.2 cm LA Volume 40.1 cm??? 18 - 58 / 22 - 52 cm??? M-MODE Aortic Root Diameter MM 3.8 cm AV Cusp Separation MM 2.6 cm DOPPLER AV Peak Velocity 83.6 cm/s AV Peak Gradient 2.8 mmHg AI Peak Velocity 317.3 cm/s AI Peak Gradient 40.3 mmHg AI Pressure Half Time 666.0 ms LVOT Peak Velocity 67.5 cm/s LVOT Peak Gradient 1.8 mmHg MV Area PHT 3.7 cm??? Mitral E Point Velocity 51.7 cm/s Mitral A Point Velocity 65.7 cm/s Mitral E to A Ratio 0.8 MV Deceleration Time 205.0 ms TR Peak Velocity 225.7 cm/s TR Peak Gradient 20.4 mmHg Right Ventricular Systolic Press 25.3 mmHg FINDINGS Left Ventricle Mildly increased left ventricular wall thickness. Reduced global left ventricular systolic function. Global left ventricular hypokinesis. Left ventricular ejection fraction is estimated at 30-35 %. Abnormal left ventricular diastolic filling pattern. Right Ventricle Normal right ventricular size. Right ventricular systolic pressure within normal limits. Right Atrium Normal right atrial size. Catheter/pacemaker wire in the right atrial cavity. Left Atrium Normal left atrial size. No evidence for an atrial septal defect. Mitral Valve Mitral valve thickened. Trace to mild mitral regurgitation. Aortic Valve Thickened aortic valve without stenosis. Mild aortic regurgitation. Tricuspid Valve Mild tricuspid regurgitation. Pulmonic Valve Structurally normal pulmonic valve. Trace pulmonic regurgitation. Pericardium No pericardial effusion. Aorta Normal size aortic root and proximal ascending aorta. CONCLUSIONS Mild left ventricular hypertrophy Global hypokinesis Severely decreased left ventricular ejection fraction 30-35% Pacemaker wire in the right atrium Mild aortic regurgitation Mild mitral regurgitation Previewed by: Dr. Myron Heredia DO (Electronically Signed) Final Date: 21 Feb 2022 13:28
--- NOTE | 2022-02-21 13:32 | DS ---
DISCHARGE SUMMARY CHIEF COMPLAINT: Shortness of breath. HISTORY OF PRESENT ILLNESS AND PHYSICAL EXAMINATION: Details of this man's history and physical can be found in the initial workup. LABORATORY STUDIES: While he was in the hospital he had laboratory studies, details of which can be found in the laboratory section of his chart. COURSE IN THE HOSPITAL: After admission, he was placed on bedrest, started on intravenous fluids and was diuresed. His shortness of breath disappeared quite quickly and was doing well enough and was stable enough to go home on February 21. He will go home on his usual activity, diet and medications and will be seen in the office in several days. FINAL DIAGNOSES: 1. Acute congestive heart failure. 2. Chronic congestive heart failure. 3. Exacerbation of chronic obstructive pulmonary disease. 4. Diabetes mellitus, type 2. OPERATIONS: None. CONSULTATIONS: Cardiology. He is improved. RYAN / BEN: [id number] /
== END 2022-02-21 12:21 | disposition home or self-care (01) | DRG 291 ==
LOC: EC 07:47 → 3SCARD 10:20
PROVIDERS: ADMIT Family Medicine; ATTEND Family Medicine
DX: I11.0 Hypertensive heart disease with heart failure (principal); I50.23 Acute on chronic systolic (congestive) heart failure; J96.21 Acute and chronic respiratory failure with hypoxia; J44.1 Chronic obstructive pulmonary disease with (acute) exacerbation; I47.2 Ventricular tachycardia; E11.9 Type 2 diabetes mellitus without complications; I42.8 Other cardiomyopathies; E78.5 Hyperlipidemia, unspecified; J98.01 Acute bronchospasm; I48.91 Unspecified atrial fibrillation; F17.210 Nicotine dependence, cigarettes, uncomplicated; I25.10 Atherosclerotic heart disease of native coronary artery without angina pectoris; M06.9 Rheumatoid arthritis, unspecified; T50.1X6A Underdosing of loop [high-ceiling] diuretics, initial encounter; Z91.128 Patient's intentional underdosing of medication regimen for other reason; Z91.14 Patient's other noncompliance with medication regimen; Z71.6 Tobacco abuse counseling; M19.90 Unspecified osteoarthritis, unspecified site; Z20.822 Contact with and (suspected) exposure to COVID-19; G47.30 Sleep apnea, unspecified; Z79.01 Long term (current) use of anticoagulants; Z98.890 Other specified postprocedural states; Z86.718 Personal history of other venous thrombosis and embolism; Z86.73 Personal history of transient ischemic attack (TIA), and cerebral infarction without residual deficits; Z95.810 Presence of automatic (implantable) cardiac defibrillator; Z95.5 Presence of coronary angioplasty implant and graft; Z87.19 Personal history of other diseases of the digestive system; Z87.828 Personal history of other (healed) physical injury and trauma; Z79.4 Long term (current) use of insulin; Z79.82 Long term (current) use of aspirin; Z79.899 Other long term (current) drug therapy
CPT/HCPCS: 36415; 71046; 71275; 80053; 83605; 83735; 83880; 84484; 85025; 85610; 85730; 87502; 87635; 93005; 93306; 94640; 94760; 96374; 96375; 96376; 99285

== ENCOUNTER 2022-03-03 09:46 | Day surgery (SDC) | payer OTHER ==
[2022-03-02 08:16] VITALS: BMI 33.3
[~2022-03-03 09:46] MED LIST changes: +AMIODARONE 200 MG TAB PO SCH; +ASPIRIN 81 MG PO SCH; +ATORVASTATIN 40 MG TAB PO SCH; +INSULIN LISPRO SQ SCH; +INSULIN NPL SQ SCH; +NON FORMULARY DRUG (Carvedilol [Coreg] 25 MG Tablet) PO SCH; +SULFASALAZINE 500 MG PO SCH; +WARFARIN 5 MG TAB PO SCH; +lisinopriL 20 MG TAB PO SCH
[2022-03-03 11:08] LABS: Glucose,Whole Blood 128 mg/dL (75-99)
[2022-03-03 11:09] VITALS: TEMP 98
[2022-03-03] MEDS ORDERED: ROPIVACAINE 5MG/ML 20ML VIAL ONE (12:02)
[2022-03-03] MEDS ORDERED: MIDAZOLAM 2 MG/2 ML VIAL ONE (12:02)
[2022-03-03] MEDS ORDERED: methylPREDNISolone ACETATE 40 MG/ML 1 ML VIAL ONE (12:02)
[2022-03-03] MEDS ORDERED: fentaNYL (PF) 50 MCG/ML 2 ML AMP ONE (12:02)
--- NOTE | 2022-03-03 12:23 | P.PCN ---
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 2- Lumber degenerative disc disease. POSTOPERATIVE DIAGNOSIS: 1- Lumbar Spondylosis with Facet Arthropathy without myelopathy. 2- Lumber degenerative disc disease. PROCEDURES : Right Radiofrequency thermocoagulation, L4 , and L5 medial branch, with fluoroscopic guidance (fluoroscopy images available in the radiology department) ( to denervate the facet joint at Right L5-S1 levels ). ANESTHESIA: Monitored anesthesia care as per anesthesia department . EBL: Minimal PROCEDURE INDICATION: The patient with low back pain secondary to lumbar facet arthropathy who had more than 50% relief of her pain with previous diagnostic lumbar medial branch block with bupivacaine. PROCEDURE DESCRIPTION / TECHNIQUE: The patient was seen and identified in the preoperative area. Risks, benefits, complications, including but not limited to risk of infection ,bleeding , allergic reactions to the medications and no complete pain releife , and alternatives were discussed with the patient, the patient agreed to proceed with the procedure and signed the consent. IV was started. Vital signs remained stable throughout the procedure. Patient was taken to the OR and time out was completed. The patient was placed in the prone position on the procedure table. The lumber area was prepped and draped in the usual sterile fashion. . Vital signs were closely monitored during the procedure .IV sedation was used during the procedure to decrease patients anxiety. Using AP and then oblique fluoroscopy, the ``eye of the Miles dog corresponding to the connection between the superior and transverse articular processes of right L4, and L5 were identified, marked, and localized with 1% lidocaine. Subsequently, a [id number] radiofrequency cannula with a 10-mm active tip was advanced guided by fluoroscopy to each of the``eyes of the Miles dog at right L4, and L5. Each site then underwent sensory testing at 50 Hz and 0 to 1 volt and motor testing at 2.5 Hz and 0 to 3 volt with local stimulation, but no radicular symptoms down the legs. Thereafter each sites underwent radiofrequency thermocoagulation at 80 degrees celsius for 90 seconds after injecting 0.5 ml of PF Ropivacaine 1ml, then after the thermocoagulation done , 1 ml of the block solution containing Depo-Medrol 40 mg and 2 ml of Ropivacaine 0.5% was injected at the right L4 , and L5 , levels after negative aspiration of CSF and blood and with no paresthesias. Cannulas were retracted while injecting lidocaine 1% until the needle is out. At the end of the procedure, the skin was cleansed and bandages were applied. COMPLICATIONS: No acute complications. DISPOSITION / PLANS: The patient was placed in a supine position and transferred to the recovery area in a stable condition for observation and was discharged from the recovery room after meeting discharge criteria. Home discharge instructions given to the patient by the staff. The patient was reexamined prior to discharge. The patient will schedule a follow up in the clinic in 2-4 weeks.
[2022-03-03] MEDS ORDERED: IV FLUID CONTINUATION 700 ML IV ONE (12:28)
--- NOTE | 2022-03-03 12:40 | FL ---
Fluoroscopy INDICATION: Pain FINDINGS: Fluoroscopy time: 16 seconds. Images obtained: 4. IMPRESSIONS: 1. Documentation of fluoroscopy.
[2022-03-03 12:45] VITALS: BP 127/89; PULSE 80; RESP 16
== END 2022-03-03 13:01 | disposition home or self-care (01) ==
LOC: ORPAIN 09:46
PROVIDERS: ATTEND Specialist
DX: M47.816 Spondylosis without myelopathy or radiculopathy, lumbar region (principal); M51.36 Other intervertebral disc degeneration, lumbar region
CPT/HCPCS: 64636; 64635; J2250; J1030; J3010; J2795

== ENCOUNTER → 2022-03-20 | Outpatient (CLI) | payer OTHER ==
[2022-03-20 13:35] VITALS: BP 99/64; PULSE 87; RESP 18
--- NOTE | 2022-03-20 13:51 | P.PAINPG ---
Objective - Vital Signs Vital signs: Vital Signs Temp Pulse 87 03/20/22 13:28 Resp 18 03/20/22 13:28 BP 99/64 03/20/22 13:28 Pulse Ox 93 L 03/20/22 13:28 FiO2 PQRS Measure Charge Sheet Mode of Arrival: Ambulatory, Wheelchair Comment: A 56 yr old male with a history of severe and chronic low back pain secondary to lumbar degenerative disc diseases and lumbar spondylosis with facet arthropathy presents today for an evaluation s/p R RFA L5-S1. He states he experienced 0% pain relief s/p procedure. Pain level is currently at 9/10 in intensity, constant, dull/achy in the lower aspect of his lumbar spine with radiation of pain. Pain is dull/ achy/ sharp/ shooting towards . Pain is provoked by walking/standing for periods of 15 min or more. Pain is alleviated with PT integrated with massage in December 2021, chiropractic treatments in Oct 2021, medictions (Gray, Volataren gel Dr Shaffer), laying supine and rest. Interventional pain procedures completed include R TFESI L4-L5, L5-S1 x 2, R paramedian LL5-S1 x 1; R RFA L5-S1 x 1. Patient is currently on Gray, Voltaren gel from Dr Shaffer Patient denies any side effects of the medication(s), denies excessive drowsiness or sleepiness, denies suicidal ideation and reports that the current pain medication is helping to control the pain and improve activities of daily living. Patient denies any motor or sensory deficits. Patient denies any fever or night sweats, denies any change in the bowel movements or urination. Physical Examination: -Constitutional: Cooperative. Not in acute distress . - Neurologic: Cranial nerve II to XII intact. No focal neurological deficits. - Psychatric: Alert & oriented x 3. Matching mood & appropriate affect. Judgment and insight intact. - Musculoskeletal: Cervical spine: Muscle bulk/ tone/ strength in the bilateral upper extremities normal Vertebral body tenderness to palpation over Spurling test positive Distraction test positive Facet loading test positive Thoracic spine Muscle bulk / tone/ strength in the bilateral paraspinal muscles normal Vertebral body tender to palpation over Facet loading test positive Lumbar spine: Motor bulk/ tone/ strength lower extremities , thigh and legs : 5/5 Deep tendon reflexes : Normal Knee Jerk. Normal Ankle Jerk . Vertebral body tenderness to palpation over Lumbar Facet Loading Test positive over R L4-L5, L5-S1. Straight Leg Raise: positive at 30 degrees right side/ left side Gaenslen's Test positive Sacral spine : Severe tenderness over the Sacroiliac joint: right side / left side Range of motion: Flexion of the lumbar spine <60 degrees Range of motion: Extension of the lumbar spine <20 degrees Gaenslen's Test positive Osei's Test positive Desire test: positive right side / left side Thigh Thrust Test Sacral Thrust Test Assessment and plan: Chronic low back pain secondary to lumbar degenerative disc disease , lumbar spondylosis with facet arthropathy without myelopathy Recommendation of TPIs of R L2-S1. This is a last effort attempt to alleviate pain. Pt should seriously consider returning to his orthopedic surgeon to explore his other pain management options since LESIs, R RFA were ineffective in managing pain. Pt acknowledged understanding. Risks, benefits of procedure discussed and pt verbalized understanding. Admits to anticoagulant use. Denies a medical history of diabetes. Protocol for discontinuation/ continuation of medications naren procedure discussed. All patient questions answered MAPS reviewed and it was appropriate. I have spent less than 30 minutes on patient care today. Dr Juarez was available by phone for the evaluation of this patient. The time was used to review the medical records including relevant urine studies and Prescription history (MAPs), review of the available imaging, evaluation and examination of the patient, coordination of care with the medical staff and if applicable referring physicians, as well as creation of the medical record - Pain Location Right Leg Non-Pharmacological Interventions: Chiropractic Treatment, Heat, Home Exercise, Inactivity, Massage, Physical Therapy, Sitting, Stretching Pharmacological Interventions: Block, Epidural, PRN Medication, Topical Medication PQRS Narrative: Smoking Status Current some day smoker Blood Pressure 99/64 Pain Intensity [Right Leg] 9 Scale Used Numeric (1 - 10) Hx Alcohol Use (MH) No Home Medications: Ambulatory Orders Ferrous Sulfate [Iron] 325 mg PO DAILY 10/22/18 HYDROcodone/APAP 10-325MG [Gray 10-325] 1 tab PO TID 11/15/20 sulfaSALAzine [Sulfasalazine Dr] 1,000 mg PO DAILY 11/15/20 Aspirin 81 mg PO DAILY #100 chew 11/19/20 Amiodarone [Cordarone] 200 mg PO DAILY 02/18/21 Atorvastatin [Lipitor] 40 mg PO DAILY 02/18/21 carvediloL [Coreg] 25 mg PO BID 02/18/21 Cyclobenzaprine [Flexeril] 10 mg PO BID PRN 11/02/21 Insulin NPL/Insulin Lispro [humaLOG MIX 75-25 VIAL] 40 unit SQ HS 11/02/21 Insulin NPL/Insulin Lispro [humaLOG MIX 75-25 VIAL] 60 unit SQ DAILY 11/02/21 Warfarin [Coumadin] 5 mg PO DAILY 11/02/21 Furosemide [Lasix] 40 mg PO BID@0900,1600 30 Days #60 tab 11/04/21 Loratadine 10 mg PO DAILY PRN 02/18/22 amLODIPine BESYLATE/BENAZEPRIL [Lotrel 10-40 MG] 1 cap PO DAILY 02/18/22 Controlled Substance Measures - Controlled Substance Measures Is patient prescribed a controlled substance at discharge?: No
== END ==
LOC: PNWHC3 13:09
PROVIDERS: ATTEND Specialist
DX: M47.816 Spondylosis without myelopathy or radiculopathy, lumbar region (principal); M51.36 Other intervertebral disc degeneration, lumbar region; G89.29 Other chronic pain
CPT/HCPCS: 99211

== ENCOUNTER → 2022-04-25 | Day surgery (SDC) | payer OTHER ==
[2022-04-21 13:31] VITALS: BMI 34.2
[~2022-04-25] MED LIST changes: -AMIODARONE 200 MG TAB PO SCH; -ASPIRIN 81 MG PO SCH; -ATORVASTATIN 40 MG TAB PO SCH; -INSULIN LISPRO SQ SCH; -INSULIN NPL SQ SCH; +IV FLUID CONTINUATION 1,000 ML IV ONE; +MIDAZOLAM 2 MG/2 ML VIAL ONE; -NON FORMULARY DRUG (Carvedilol [Coreg] 25 MG Tablet) PO SCH; -SULFASALAZINE 500 MG PO SCH; -WARFARIN 5 MG TAB PO SCH; +fentaNYL (PF) 50 MCG/ML 2 ML AMP ONE; -lisinopriL 20 MG TAB PO SCH
[2022-04-25 12:08] LABS: Glucose,Whole Blood 98 mg/dL (70-110)
[2022-04-25 12:10] VITALS: RESP 16; TEMP 97.4
--- NOTE | 2022-04-25 12:54 | P.PCN ---
Date of Procedure: 04/25/22 Procedure(s) Performed: This is 56 years old male who was diagnosed with lumbar spondylosis with lumbar facet arthropathy, lumbar degenerative disc disease, and patient was scheduled to have trigger point injection, in the lumbar area on the right side,, previously we have done right side transforaminal epidural steroid injection, and we did RFA of the medial branch lumbar area, and patient had no benefit from it, patient today brought to the procedure room, and patient was given sedation with Versed 1 mg ,and fentanyl 50 g, and when I tried to localize the trigger point ,I was not able to find any trigger points in the lumbar area ,patient had no muscle spasm in the lumbar area, and patient reported ,that all of his problem, now, is pain and numbness in his right leg ,and he has no back pain ,, then I explained to the patient, that doing trigger point today ,it will not help his pain, the best option for him is to follow up with the spine surgeon for evaluation for possible surgical intervention because patient failed interventional pain management, and the procedure was canceled for today
[2022-04-25 13:20] VITALS: BP 156/91; PULSE 82
== END ==
LOC: ORPAIN 11:17
PROVIDERS: ATTEND Specialist
DX: M79.18 Myalgia, other site (principal); M47.816 Spondylosis without myelopathy or radiculopathy, lumbar region; M51.36 Other intervertebral disc degeneration, lumbar region; Z53.8 Procedure and treatment not carried out for other reasons
CPT/HCPCS: 20553; J2250; J3010

== ENCOUNTER 2022-05-25 09:00 | Inpatient (IN) | payer OTHER ==
[2022-05-25] MEDS ORDERED: SODIUM CHLORIDE 0.9% 500 ML 500 ML IV STA (09:09)
[2022-05-25] MEDS ORDERED: PANTOPRAZOLE 40 MG/10 ML VIAL IVP STA (09:09)
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
[2022-05-25 09:39] LABS: Anisocytosis Slight; Basophils # (A) 0.1 k/uL (0-0.2); Basophils % (A) 0 %; Eosinophils # (A) 0.1 k/uL (0-0.7); Eosinophils % (A) 1 %; Hypochromasia Marked; Lymphocytes % (A) 13 %; MCH 25.5 pg (25.0-35.0); MCHC 29.1 g/dL (31.0-37.0); MCV 87.8 fL (80.0-100.0); Mean Platelet Volume 8.6; Monocytes # (A) 0.9 k/uL (0-1.0); Monocytes % (A) 5 %; Neutrophils # (A) 12.8 k/uL (1.3-7.7); Neutrophils % (A) 80 %; Platelet Count 407 k/uL (150-450); RBC 1.89 m/uL (4.30-5.90); RDW 17.3 % (11.5-15.5)
[2022-05-25 09:43] LABS: HCT 16.6 % (39.0-53.0); HGB 4.8 gm/dL (13.0-17.5)
[2022-05-25 09:48] LABS: Albumin 3.2 g/dL (3.5-5.0); Calcium 8.1 mg/dL (8.4-10.2); Magnesium 1.7 mg/dL (1.6-2.3); Potassium 4.7 mmol/L (3.5-5.1); Total Bilirubin 0.3 mg/dL (0.2-1.3); Total Protein 5.6 g/dL (6.3-8.2)
[2022-05-25 09:51] LABS: Partial Thromboplastin Time 36.7 sec (22.0-30.0)
[2022-05-25 09:53] LABS: INR 7.2 (<1.2)
[2022-05-25] MEDS ORDERED: Kcentra PER PHARMACY 1 EACH MISC MISCELLANE PRN (09:58)
[2022-05-25] MEDS ORDERED: PHYTONADIONE 10 MG in SODIUM CHLORIDE 0.9% 50 ML IVPB STA (09:58)
[2022-05-25] MEDS ORDERED: HUMAN PROTHROMBIN COMPLX 500 UNIT/16 ML VIAL IV ONE (10:15)
[2022-05-25] MEDS ORDERED: HUMAN PROTHROMBIN COMPLX IV ONE (10:15)
[2022-05-25] MEDS ORDERED: NALOXONE 0.4 MG/ML 1 ML VIAL IV PRN (11:35)
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
[2022-05-25 15:59] LABS: Glucose,Whole Blood 171 mg/dL (70-110)
[2022-05-25 17:37] LABS: INR 1.3 (<1.2); Prothrombin Time 13.6 sec (9.0-12.0)
[2022-05-25] MEDS: ATORVASTATIN 40 MG TAB PO SCH (18:10)
[2022-05-25] MEDS: carvediloL 12.5 MG TAB PO SCH (18:10)
[2022-05-25] MEDS: LATANOPROST 0.005% OPHTH DROPS 2.5 ML BTL BOTH EYES SCH (20:14)
[2022-05-26 02:27] LABS: HCT 28.3 % (39.0-53.0); Hypochromasia Slight; MCH 28.4 pg (25.0-35.0); MCHC 32.5 g/dL (31.0-37.0); MCV 87.2 fL (80.0-100.0); Mean Platelet Volume 8.1; Platelet Count 204 k/uL (150-450); Poikilocytosis Slight; RBC 3.25 m/uL (4.30-5.90); RDW 14.9 % (11.5-15.5)
[2022-05-26 02:58] LABS: HGB 9.2 gm/dL (13.0-17.5)
--- NOTE | 2022-05-26 05:06 | HP ---
HISTORY AND PHYSICAL CHIEF COMPLAINT: Nausea, vomiting, and GI bleed. HISTORY OF PRESENT ILLNESS: This is another admission for this 56-year-old [place] male. He has a long-standing history of congestive heart failure, COPD, diabetes, and hypertension. He is on Coumadin. He presented to the emergency room with a hemoglobin of 4.8 and a PT/INR of 7.2. He denied any pain. REVIEW OF SYSTEMS: He had no headache, neurologic changes, or problems with vision or hearing, cough, hemoptysis, shortness of breath, abdominal pain, difficulty urinating, etc. Past medical history, family history and personal and social histories reveal that he does have a long-standing history of COPD, diabetes, and right leg pain, the etiology of which has never been truly discovered. He is not allergic to any medication and he is on Humalog 75/25, 60 units in the morning and 40 at night; amlodipine-benazepril 10- 40 once a day; Lasix 40 mg once a day; carvedilol 25 mg twice a day; Coumadin 7.5 once a day; Flexeril; atorvastatin 40 mg once a day; sulfasalazine 500 mg 2 a day; vitamin D; and he has been on amiodarone 200 mg once a day. The remainder of his history is unremarkable. PHYSICAL EXAMINATION: VITAL SIGNS: Blood pressure 102/58 with a pulse of 96, respirations of 33. GENERAL: He is afebrile, in general appeared to be well developed and in no acute distress. Skin was dry. HEENT: Head, ears, eyes, nose, mouth and throat were normal except for the scleral surfaces being pale. NECK: Veins not distended. CHEST: Clear. CARDIAC: Demonstrated sinus tachycardia with no murmurs or extra sounds. ABDOMEN: Soft, nontender. EXTREMITIES: Normal. NEUROLOGICAL: He is intact. DIAGNOSES: He is admitted to the hospital with diagnoses, 1. Upper gastrointestinal hemorrhage. 2. Blood-loss anemia. 3. Hyperprothrombinemia. 4. History of hypertension. 5. History of diabetes. 6. History of chronic obstructive pulmonary disease. PLAN: 1. Bedrest. 2. Transfusion. 3. Manage his hyperprothrombinemia. 4. GI consult. MMODL / IJN: [id number] /
[2022-05-26] MEDS: carvediloL 12.5 MG TAB PO SCH ×2 (06:51→18:57)
[2022-05-26 07:58] LABS: HCT 27.5 % (39.0-53.0); HGB 9.1 gm/dL (13.0-17.5); Hypochromasia Slight; MCHC 32.9 g/dL (31.0-37.0); MCV 88.2 fL (80.0-100.0); Platelet Count 188 k/uL (150-450); Poikilocytosis Slight; RBC 3.12 m/uL (4.30-5.90); RDW 15.1 % (11.5-15.5); WBC 12.8 k/uL (3.8-10.6)
[2022-05-26] MEDS: ATORVASTATIN 40 MG TAB PO SCH (08:29)
[2022-05-26 08:33] LABS: African American GFR (CKD) >90 (>60 ml/min/1.73 sqM); Anion Gap 7 mmol/L; Blood Urea Nitrogen 19 mg/dL (9-20); Calcium 7.9 mg/dL (8.4-10.2); Carbon Dioxide 21 mmol/L (22-30); Chloride 106 mmol/L (98-107); Glucose 120 mg/dL (74-99); Non-African American GFR(CKD) 88 (>60 ml/min/1.73 sqM); Potassium 4.4 mmol/L (3.5-5.1); Sodium 134 mmol/L (137-145)
[2022-05-26] MEDS: amLODIPine 10 MG TAB PO SCH (11:58)
[2022-05-26] MEDS: lisinopriL 20 MG TAB PO SCH (11:58)
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
[2022-05-26 12:25] VITALS: BMI 34.2
--- NOTE | 2022-05-26 14:34 | P.PN ---
Subjective Progress Note Date: 05/26/22 56 year old male presented to the emergency department because of a ongoing GI bleed. The patient claimed that he was having bright red blood per rectum for the past few days and the patient is known to have been treated with anticoagulation with warfarin regarding chronic cardiac issues which includes history of a cardiac thrombus and cardiomyopathy. The patient came into the emergency department the patient was found to be toxic on his Coumadin level and his INR was at 7.2 with a PT of 73. Hemoglobin was at 4.8 and a platelet count of 407. Renal function was stable. Sodium level is at 134. Lactic acid level was at 9.3. Troponin was negative and his liver function tests were essentially within normal limits. At that point, the patient was given Kcentra and he was also given vitamin K. He is receiving also IV Protonix. He was ordered packed RBC transfusion a total of 4 and the patient is currently receiving his second unit. The patient is known to me. I took care of him back in January 2022 when he came into the hospital because of an acute on top of chronic CHF. As the patient is being resuscitated, he is less tachycardic at this point in time. His blood pressures improved and his most recent blood pressure is 120/87 and his resting comfortably in bed. I was told by the nursing that he did not have any further episodes of bleeding here in the emergency department. The patient is looking into getting transferred to the ICU. He has history of coronary artery disease status post PCI mid LAD 8-10 years ago in [place], ischemic cardiomyopathy status post AICD, history of ventricular tachycardia, LV thrombus maintained on Coumadin, CVA, hypertension, dyslipidemia, diabetes mellitus and nicotine dependence. He previously had cardiomyopathy with improved EF and . Cardiac catheterization was done in October 2021 and the patient was found to have normal coronary arteries as described above, JONE 2 flow noted in all coronary arteries which may be indicative of microvascular dysfunction, Elevated left sided filling pressures, Nonischemic cardiomyopathy with EF 25% with predominantly global hypokinesis however mild sparing of the bases which may be seen with Takotsubo's cardiomyopathy.The patient is a chronic smoker and continues smoker 1 pack of cigarettes a day. on 05/26/2022, patient is being seen for a follow-up. The patient is quite comfortable at this point in time. He did have another bloody bowel movement and this was dark blood probably some residual material that was obtained in his colon. The patient has remained nothing by mouth. The patient is hemodynamically stable. His hemoglobin is stable at 9.1. INR is down to 1.3 and the patient's lactic acid level is also normalized and is down to 0.9. Rezulin electrodes are all stable and the sodium level is at 134 with a potassium level of 4.4. BUN is at 90 with a creatinine of 0.9 and a platelet count is at 188. The patient has no specific complaints. He feels somewhat hungry. Hemodynamically stable. No other significant events otherwise for now. He was taken off anticoagulants. Mother the patient was taking Coumadin for a history of paroxysmal atrial fibrillation and a cardiac thrombus that was not seen on subsequent echocardiograms. Objective - Vital Signs Vital signs: Vital Signs Temp 98 F 05/26/22 12:00 Pulse 76 05/26/22 14:00 Resp 16 05/26/22 14:00 BP 118/80 05/26/22 14:00 Pulse Ox 97 05/26/22 14:00 FiO2 Intake & Output 05/25/22 05/26/22 05/26/22 18:59 06:59 18:59 Intake Total 620 620 300 Output Total 150 1250 1500 Balance 470 -630 -1200 Weight 93.44 kg 93.44 kg Intake: Oral 300 Blood Product 620 620 Rc As-1 Unit 310 [id number] Rc As-1 Unit 0 310 [id number] Rc As-1 Unit 310 [id number] Rc As-1 Unit 310 [id number] Output: Urine 150 1250 1500 Other: # Voids 0 0 # Bowel Movements 1 - Exam The patient appeared well nourished and normally developed. Vital signs as documented. Head exam is unremarkable. No scleral icterus or corneal arcus noted. Neck is without jugular venous distension, thyromegaly, or carotid bruits. Carotid upstrokes are brisk bilaterally. Lungs are clear to auscultation and percussion. Cardiac exam reveals the PMI to be normally sized and situated. Rhythm is regular. First and second heart sounds normal. No murmurs, rubs or gallops. Abdominal exam reveals normal bowel sounds, no masses, no organomegaly and no aortic enlargement. Extremities are nonedematous and both femoral and pedal pulses are normal.Examination of the skin revealed no evidence of signific ant rashes, suspicious appearing nevi or other concerning lesions.Neurologically, the patient is awake and alert and the patient does not have any focal neurological deficit. Cranial nerves are essentially intact. - Labs CBC & Chem 7: 05/26/22 07:18 05/26/22 07:18 Labs: Abnormal Lab Results - Last 24 Hours (Table) 05/25/22 05/25/22 05/25/22 Range/Units 09:45 15:56 17:12 WBC (3.8-10.6) k/uL RBC (4.30-5.90) m/uL Hgb (13.0-17.5) gm/dL Hct (39.0-53.0) % PT 13.6 H (9.0-12.0) sec INR 1.3 H (<1.2) Sodium (137-145) mmol/L Carbon Dioxide (22-30) mmol/L Glucose (74-99) mg/dL POC Glucose (mg/dL) 171 H (70-110) mg/dL Calcium (8.4-10.2) mg/dL Crossmatch See Detail 05/26/22 05/26/22 05/26/22 Range/Units 02:04 07:18 07:18 WBC 14.0 H 12.8 H (3.8-10.6) k/uL RBC 3.25 L 3.12 L (4.30-5.90) m/uL Hgb 9.2 L D 9.1 L (13.0-17.5) gm/dL Hct 28.3 L 27.5 L (39.0-53.0) % PT (9.0-12.0) sec INR (<1.2) Sodium 134 L (137-145) mmol/L Carbon Dioxide 21 L (22-30) mmol/L Glucose 120 H (74-99) mg/dL POC Glucose (mg/dL) (70-110) mg/dL Calcium 7.9 L (8.4-10.2) mg/dL Crossmatch Assessment and Plan Plan: Acute GI bleed with significant drop in hemoglobin down to 4.6. The patient was, the toxic and coagulopathic at the time of admission. He is currently receiving his second unit of packed RBC. Hemodynamically stable. This is likely a lower GI source of bleeding. No melanotic stools and the patient had bright red blood per rectum. The patient received a total of 4 units of packed RBC and the patient's hemoglobin is stable and there are no signs of ongoing GI bleed Acute on chronic anemia. Hemoglobin is down to 4.6 secondary to GI bleed, hemoglobin is stable , hemoglobin is stable currently at 9.1., recovered acute lactic acidosis, recovered Coagulopathy and Coumadin toxicity with an INR of 7.2, reversed awaiting follow- up coagulation profile, recovered and the correlation profile is normalized and the patient is currently off warfarin Generalized weakness and shortness of breath secondary to acute anemia Previous history of GI bleed Chronic systolic heart failure, nonischemic in nature with an ejection fraction of 25% and global hypokinesis Coronary artery disease with previous PCI to LAD and the patient's most recent cardiac catheterization shown patent coronaries LV thrombus along with previous history of paroxysmal atrial fibrillation and the patient limited on anticoagulation with warfarin Paroxysmal atrial fibrillation current rhythm is sinus Hypertension Hyperlipidemia Diabetes mellitus maintained on insulin History of smoking AICD placement with episodes of previous ventricular tachycardia, cardiac rhythm is sinus and cold no ventricular arrhythmias of been noted Paroxysmal atrial fibrillation current rhythm is sinus Plan Complete a total of 4 units of packed RBC, and a hemoglobin is stable for now No anticoagulants Cardiac rhythm is sinus Previous echocardiogram that revealed no evidence of any cardiac thrombus General surgery consultation regarding GI bleeding. Possible endoscopies in later stage including EGD and colonoscopy Allow clear liquid diet Cardiology consultation Hemodynamically stable May transfer out of the intensive care unit to a telemetry unit
[2022-05-26 14:46] LABS: HCT 26.2 % (39.0-53.0); HGB 8.5 gm/dL (13.0-17.5); Hypochromasia Slight; MCH 28.4 pg (25.0-35.0); MCHC 32.6 g/dL (31.0-37.0); MCV 87.1 fL (80.0-100.0); Mean Platelet Volume 7.9; Platelet Count 207 k/uL (150-450); Poikilocytosis Slight; WBC 9.8 k/uL (3.8-10.6)
[2022-05-26] MEDS: HYDROcodone/APAP 10-325MG 1 EACH TAB PO SCH (16:54)
[2022-05-26] MEDS: PANTOPRAZOLE 40 MG/10 ML VIAL IVP SCH (20:09)
[2022-05-26] MEDS: LATANOPROST 0.005% OPHTH DROPS 2.5 ML BTL BOTH EYES SCH (20:09)
[2022-05-26 20:55] LABS: HCT 25.5 % (39.0-53.0); HGB 8.5 gm/dL (13.0-17.5); Hypochromasia Slight; MCH 29.1 pg (25.0-35.0); MCHC 33.2 g/dL (31.0-37.0); MCV 87.5 fL (80.0-100.0); Mean Platelet Volume 7.8; Platelet Count 197 k/uL (150-450); Poikilocytosis Slight; RBC 2.91 m/uL (4.30-5.90); RDW 15.3 % (11.5-15.5); WBC 9.8 k/uL (3.8-10.6)
[2022-05-27] MEDS: HYDROcodone/APAP 10-325MG 1 EACH TAB PO SCH ×4 (05:32→21:51)
[2022-05-27] MEDS: carvediloL 12.5 MG TAB PO SCH ×2 (06:35→17:46)
[2022-05-27 06:43] LABS: African American GFR (CKD) >90 (>60 ml/min/1.73 sqM); Anion Gap 7 mmol/L; Blood Urea Nitrogen 10 mg/dL (9-20); Carbon Dioxide 22 mmol/L (22-30); Chloride 105 mmol/L (98-107); Glucose 108 mg/dL (74-99); Non-African American GFR(CKD) >90 (>60 ml/min/1.73 sqM); Potassium 3.8 mmol/L (3.5-5.1); Sodium 134 mmol/L (137-145)
[2022-05-27 06:58] LABS: Basophils % (A) 0 %; Eosinophils # (A) 0.1 k/uL (0-0.7); Eosinophils % (A) 2 %; HCT 26.2 % (39.0-53.0); HGB 8.5 gm/dL (13.0-17.5); Hypochromasia Slight; Lymphocytes # (A) 1.5 k/uL (1.0-4.8); Lymphocytes % (A) 21 %; MCHC 32.6 g/dL (31.0-37.0); MCV 88.8 fL (80.0-100.0); Mean Platelet Volume 8.5; Monocytes # (A) 0.7 k/uL (0-1.0); Monocytes % (A) 10 %; Neutrophils # (A) 4.7 k/uL (1.3-7.7); Neutrophils % (A) 65 %; Platelet Count 200 k/uL (150-450); Poikilocytosis Slight; RBC 2.95 m/uL (4.30-5.90); RDW 15.5 % (11.5-15.5); WBC 7.2 k/uL (3.8-10.6)
[2022-05-27] MEDS ORDERED: Potassium Replacement Protocol 1 EACH MISC MISCELLANE PRN (07:18)
--- NOTE | 2022-05-27 07:34 | PN ---
PROGRESS NOTE CHIEF COMPLAINT: Upper GI bleed. HISTORY OF PRESENT ILLNESS: This gentleman is still passing blood rectally. He is hemodynamically stable, still has tachycardia, and his blood pressures running around . PHYSICAL EXAMINATION: CHEST: Clear. CARDIAC: Normal. ABDOMEN: Soft, slightly protuberant. It is nontender. IMPRESSION: 1. Gastrointestinal hemorrhage. 2. Blood loss anemia. PLAN: Consult with Gastroenterology or General Surgery for endoscopy, and then in the meantime, keep him in ICU. MMODL / IJN: [id number] /
[2022-05-27] MEDS ORDERED: POTASSIUM CHLORIDE ER 20 MEQ TAB.ER PO SCH (08:00)
[2022-05-27] MEDS ORDERED: lisinopriL 20 MG TAB PO SCH (09:00)
[2022-05-27] MEDS: ATORVASTATIN 40 MG TAB PO SCH (09:08)
[2022-05-27] MEDS: PANTOPRAZOLE 40 MG/10 ML VIAL IVP SCH ×2 (09:09→20:32)
[2022-05-27] MEDS: amLODIPine 10 MG TAB PO SCH (10:51)
[2022-05-27] MEDS: lisinopriL 20 MG TAB PO SCH (10:52)
--- NOTE | 2022-05-27 11:07 | P.PN ---
Subjective Progress Note Date: 05/27/22 Principal diagnosis: GI bleed Patient did well overnight. He did have a smaller bloody stool yesterday evening. He is hungry. He would like solid foods. Hemoglobin is stable at 8.5. No INR checked today. Objective - Vital Signs Vital signs: Vital Signs Temp 97.7 F 05/27/22 08:00 Pulse 60 05/27/22 10:00 Resp 20 05/27/22 10:00 BP 117/79 05/27/22 10:00 Pulse Ox 97 05/27/22 10:00 FiO2 Intake & Output 05/26/22 05/27/22 05/27/22 18:59 06:59 18:59 Intake Total 400 50 Output Total 1801 750 410 Balance -1401 -700 -410 Weight 93.44 kg 92 kg Intake: Oral 400 50 Output: Urine 1800 750 410 Stool 1 Other: # Voids 1 0 0 # Bowel Movements 1 1 - Exam Abdomen: Soft, nontender, nondistended - Labs CBC & Chem 7: 05/27/22 05:53 05/27/22 05:53 Labs: Abnormal Lab Results - Last 24 Hours (Table) 05/26/22 05/26/22 05/27/22 Range/Units 14:30 20:40 05:53 RBC 3.00 L 2.91 L 2.95 L (4.30-5.90) m/uL Hgb 8.5 L 8.5 L 8.5 L (13.0-17.5) gm/dL Hct 26.2 L 25.5 L 26.2 L (39.0-53.0) % Sodium (137-145) mmol/L Glucose (74-99) mg/dL Calcium (8.4-10.2) mg/dL 05/27/22 Range/Units 05:53 RBC (4.30-5.90) m/uL Hgb (13.0-17.5) gm/dL Hct (39.0-53.0) % Sodium 134 L (137-145) mmol/L Glucose 108 H (74-99) mg/dL Calcium 8.0 L (8.4-10.2) mg/dL Assessment and Plan (1) GI bleed Narrative/Plan: Patient doing well at this time. Bleeding seems to have mostly resolved after correction of coagulopathy. We were unable to obtain any records from recent endoscopy at outside institution. Patient is requesting solid foods. Will advance diet to regular at this time. Recheck labs tomorrow. If patient doing well May discharge with plans for outpatient evaluation of recent endoscopy records to decide if he is due for repeat studies at this time. Current Visit: Yes Status: Acute Code(s): K92.2 - GASTROINTESTINAL HEMORRHAG E, UNSPECIFIED SNOMED Code(s): 95519347
[2022-05-27] MEDS ORDERED: DEXTROSE 50% SYRINGE 50 ML IVP PRN ×2 (12:00)
[2022-05-27] MEDS: INSULIN ASPART (NovoLOG) 100 UNIT/ML VIAL SQ SCH ×3 (12:03→20:32)
--- NOTE | 2022-05-27 13:40 | P.PN ---
Subjective Progress Note Date: 05/27/22 56 year old male presented to the emergency department because of a ongoing GI bleed. The patient claimed that he was having bright red blood per rectum for the past few days and the patient is known to have been treated with anticoagulation with warfarin regarding chronic cardiac issues which includes history of a cardiac thrombus and cardiomyopathy. The patient came into the emergency department the patient was found to be toxic on his Coumadin level and his INR was at 7.2 with a PT of 73. Hemoglobin was at 4.8 and a platelet count of 407. Renal function was stable. Sodium level is at 134. Lactic acid level was at 9.3. Troponin was negative and his liver function tests were essentially within normal limits. At that point, the patient was given Kcentra and he was also given vitamin K. He is receiving also IV Protonix. He was ordered packed RBC transfusion a total of 4 and the patient is currently receiving his second unit. The patient is known to me. I took care of him back in January 2022 when he came into the hospital because of an acute on top of chronic CHF. As the patient is being resuscitated, he is less tachycardic at this point in time. His blood pressures improved and his most recent blood pressure is 120/87 and his resting comfortably in bed. I was told by the nursing that he did not have any further episodes of bleeding here in the emergency department. The patient is looking into getting transferred to the ICU. He has history of coronary artery disease status post PCI mid LAD 8-10 years ago in [place], ischemic cardiomyopathy status post AICD, history of ventricular tachycardia, LV thrombus maintained on Coumadin, CVA, hypertension, dyslipidemia, diabetes mellitus and nicotine dependence. He previously had cardiomyopathy with improved EF and . Cardiac catheterization was done in October 2021 and the patient was found to have normal coronary arteries as described above, JONE 2 flow noted in all coronary arteries which may be indicative of microvascular dysfunction, Elevated left sided filling pressures, Nonischemic cardiomyopathy with EF 25% with predominantly global hypokinesis however mild sparing of the bases which may be seen with Takotsubo's cardiomyopathy.The patient is a chronic smoker and continues smoker 1 pack of cigarettes a day. on 05/26/2022, patient is being seen for a follow-up. The patient is quite comfortable at this point in time. He did have another bloody bowel movement and this was dark blood probably some residual material that was obtained in his colon. The patient has remained nothing by mouth. The patient is hemodynamically stable. His hemoglobin is stable at 9.1. INR is down to 1.3 and the patient's lactic acid level is also normalized and is down to 0.9. Rezulin electrodes are all stable and the sodium level is at 134 with a potassium level of 4.4. BUN is at 90 with a creatinine of 0.9 and a platelet count is at 188. The patient has no specific complaints. He feels somewhat hungry. Hemodynamically stable. No other significant events otherwise for now. He was taken off anticoagulants. Mother the patient was taking Coumadin for a history of paroxysmal atrial fibrillation and a cardiac thrombus that was not seen on subsequent echocardiograms. 05/27/2022, patient is doing well on no oxygen and the patient is hemodynamically stable. The patient did not have any further episodes of GI bleeding. Hemoglobin currently is at 8.5 and the rest of the electrodes are all stable. The BNP Neeta the creatinine of 0.7. Note that the patient was also taken off anticoagulants. He was on Coumadin earlier. No other new complaints otherwise for now. He was restarted back on Coreg and lisinopril as long as his blood pressure is able to handle. He remains on Protonix 40 mg IV e very 12 hours. No other significant issues otherwise for now. Objective - Vital Signs Vital signs: Vital Signs Temp 97.8 F 05/27/22 11:45 Pulse 86 05/27/22 11:45 Resp 16 05/27/22 11:45 BP 126/103 05/27/22 12:00 Pulse Ox 98 05/27/22 11:45 FiO2 Intake & Output 05/26/22 05/27/22 05/27/22 18:59 06:59 18:59 Intake Total 400 50 250 Output Total 1801 750 410 Balance -1401 -700 -160 Weight 93.44 kg 92 kg Intake: Oral 400 50 250 Output: Urine 1800 750 410 Stool 1 Other: # Voids 1 0 0 # Bowel Movements 1 1 - Exam The patient appeared well nourished and normally developed. Vital signs as documented. Head exam is unremarkable. No scleral icterus or corneal arcus noted. Neck is without jugular venous distension, thyromegaly, or carotid bruits. Carotid upstrokes are brisk bilaterally. Lungs are clear to auscultation and percussion. Cardiac exam reveals the PMI to be normally sized and situated. Rhythm is regular. First and second heart sounds normal. No murmurs, rubs or gallops. Abdominal exam reveals normal bowel sounds, no masses, no organomegaly and no aortic enlargement. Extremities are nonedematous and both femoral and pedal pulses are normal.Examination of the skin revealed no evidence of significant rashes, suspicious appearing nevi or other concerning lesions.Neurologically, the patient is awake and alert and the patient does not have any focal neurological deficit. Cranial nerves are essentially intact. - Labs CBC & Chem 7: 05/27/22 05:53 05/27/22 05:53 Labs: Abnormal Lab Results - Last 24 Hours (Table) 05/26/22 05/26/22 05/27/22 Range/Units 14:30 20:40 05:53 RBC 3.00 L 2.91 L 2.95 L (4.30-5.90) m/uL Hgb 8.5 L 8.5 L 8.5 L (13.0-17.5) gm/dL Hct 26.2 L 25.5 L 26.2 L (39.0-53.0) % Sodium (137-145) mmol/L Glucose (74-99) mg/dL Calcium (8.4-10.2) mg/dL 05/27/22 Range/Units 05:53 RBC (4.30-5.90) m/uL Hgb (13.0-17.5) gm/dL Hct (39.0-53.0) % Sodium 134 L (137-145) mmol/L Glucose 108 H (74-99) mg/dL Calcium 8.0 L (8.4-10.2) mg/dL Assessment and Plan Plan: Acute GI bleed with significant drop in hemoglobin down to 4.6, transfuse and the patient's hemoglobin is stable for now at 8.5 Acute on chronic anemia. acute lactic acidosis, recovered Coagulopathy and Coumadin toxicity with an INR of 7.2, reversed Generalized weakness and shortness of breath secondary to acute anemia Previous history of GI bleed Chronic systolic heart failure, nonischemic in nature with an ejection fraction of 25% and global hypokinesis Coronary artery disease with previous PCI to LAD and the patient's most recent cardiac catheterization shown patent coronaries LV thrombus along with previous history of paroxysmal atrial fibrillation and the patient limited on anticoagulation with warfarin Paroxysmal atrial fibrillation current rhythm is sinus Hypertension Hyperlipidemia Diabetes mellitus maintained on insulin History of smoking AICD placement with episodes of previous ventricular tachycardia, cardiac rhythm is sinus and cold no ventricular arrhythmias of been noted Paroxysmal atrial fibrillation current rhythm is sinus Plan Stable hemoglobin No anticoagulants Cardiac rhythm is sinus Previous echocardiogram that revealed no evidence of any cardiac thrombus General surgery consultation regarding GI bleeding. Possible endoscopies in later stage including EGD and colonoscopy Advance diet as tolerated Hemodynamically stable May transfer out of the intensive care unit to a telemetry unit
[2022-05-27 20:20] LABS: Glucose,Whole Blood 167 mg/dL (70-110)
[2022-05-27] MEDS: LATANOPROST 0.005% OPHTH DROPS 2.5 ML BTL BOTH EYES SCH (20:33)
[2022-05-28 05:09] LABS: INR 1.1 (<1.2); Prothrombin Time 11.4 sec (9.0-12.0)
[2022-05-28 05:10] LABS: African American GFR (CKD) >90 (>60 ml/min/1.73 sqM); Anion Gap 8 mmol/L; Blood Urea Nitrogen 10 mg/dL (9-20); Carbon Dioxide 22 mmol/L (22-30); Chloride 104 mmol/L (98-107); Glucose 112 mg/dL (74-99); Non-African American GFR(CKD) >90 (>60 ml/min/1.73 sqM); Potassium 3.9 mmol/L (3.5-5.1); Sodium 134 mmol/L (137-145)
[2022-05-28] MEDS ORDERED: Potassium Replacement Protocol 1 EACH MISC MISCELLANE PRN (05:50)
[2022-05-28] MEDS ORDERED: POTASSIUM CHLORIDE ER 20 MEQ TAB.ER PO SCH (06:00)
[2022-05-28 06:12] LABS: Basophils % (A) 1 %; Eosinophils # (A) 0.1 k/uL (0-0.7); Eosinophils % (A) 2 %; HCT 24.9 % (39.0-53.0); HGB 8.1 gm/dL (13.0-17.5); Hypochromasia Slight; Lymphocytes # (A) 1.5 k/uL (1.0-4.8); Lymphocytes % (A) 23 %; MCHC 32.4 g/dL (31.0-37.0); MCV 89.5 fL (80.0-100.0); Mean Platelet Volume 8.9; Monocytes # (A) 0.6 k/uL (0-1.0); Monocytes % (A) 10 %; Neutrophils # (A) 3.9 k/uL (1.3-7.7); Neutrophils % (A) 61 %; Platelet Count 203 k/uL (150-450); Poikilocytosis Slight; RBC 2.79 m/uL (4.30-5.90); RDW 15.9 % (11.5-15.5); WBC 6.4 k/uL (3.8-10.6)
[2022-05-28 06:33] LABS: Glucose,Whole Blood 147 mg/dL (70-110)
[2022-05-28] MEDS: INSULIN ASPART (NovoLOG) 100 UNIT/ML VIAL SQ SCH ×2 (06:34→12:04)
--- NOTE | 2022-05-28 09:10 | P.PN ---
Subjective Progress Note Date: 05/27/22 56 year old male presented to the emergency department because of a ongoing GI bleed. The patient claimed that he was having bright red blood per rectum for the past few days and the patient is known to have been treated with anticoagulation with warfarin for cardiac thrombus and cardiomyopathy. Upon pr esentation patient was found to have INR at 7.2 with a PT of 73. Hemoglobin was at 4.8 and a platelet count of 407. Patient was given Kcentra and he was also given vitamin K. He is receiving also IV Protonix. He was ordered packed RBC transfusion a total of 4 and the patient is currently receiving his second unit. The patient was transferred to the ICU. He has history of coronary artery disease status post PCI mid LAD 8-10 years ago in [place], ischemic cardiomyopathy status post AICD, history of ventricular tachycardia, LV thrombus maintained on Coumadin, CVA, hypertension, dyslipidemia , diabetes mellitus and nicotine dependence. He previously had cardiomyopathy with improved EF and . Cardiac catheterization was done in October 2021 and the patient was found to have normal coronary arteries as described above, JONE 2 flow noted in all coronary arteries which may be indicative of microvascular dysfunction, Elevated left sided filling pressures, Nonischemic cardiomyopathy with EF 25% with predominantly global hypokinesis however mild sparing of the bases which may be seen with Takotsubo's cardiomyopathy.. Objective - Vital Signs Vital signs: Vital Signs Temp 97.7 F 05/27/22 04:00 Pulse 54 L 05/27/22 07:00 Resp 18 05/27/22 07:00 BP 122/82 05/27/22 07:00 Pulse Ox 95 05/27/22 07:00 FiO2 Intake & Output 05/26/22 05/27/22 05/27/22 18:59 06:59 18:59 Intake Total 400 50 Output Total 1801 750 Balance -1401 -700 Weight 93.44 kg 92 kg Intake: Oral 400 50 Output: Urine 1800 750 Stool 1 Other: # Voids 1 0 0 # Bowel Movements 1 1 - Exam - Constitutional General appearance: Present: average body habitus, cooperative, no acute distress - EENT Eyes: Present: anicteric sclerae, EOMI, PERRLA, normal appearance ENT: Present: hearing grossly normal, normal oropharynx Ears: bilateral: normal - Neck Neck: Present: normal ROM. Absent: lymphadenopathy, rigidity, thyromegaly Carotids: negative: bruit present Thyroid: bilateral: normal size, negative: enlarged, nodule - Respiratory Respiratory: bilateral: CTA, negative: rales, rhonchi, wheezing - Cardiovascular Rhythm: regular Heart sounds: normal: S1, S2 Abnormal Heart Sounds: Absent: systolic murmur, diastolic murmur - Gastrointestinal General gastrointestinal: Present: normal bowel sounds, soft. Absent: distended, organomegaly, tenderness - Genitourinary Genitourinary Comment(s): deferred - Integumentary Integumentary: Present: normal turgor. Absent: jaundiced, rash, ulcer - Neurologic Neurologic: Present: CNII-XII intact. Absent: focal deficits - Musculoskeletal Musculoskeletal: Present: gait normal, strength equal bilaterally - Psychiatric Psychiatric: Present: A&O x's 3, appropriate affect, intact judgment & insight - Labs CBC & Chem 7: 05/28/22 04:44 05/28/22 04:44 Labs: Abnormal Lab Results - Last 24 Hours (Table) 05/26/22 05/26/22 05/27/22 Range/Units 14:30 20:40 05:53 RBC 3.00 L 2.91 L 2.95 L (4.30-5.90) m/uL Hgb 8.5 L 8.5 L 8.5 L (13.0-17.5) gm/dL Hct 26.2 L 25.5 L 26.2 L (39.0-53.0) % Sodium (137-145) mmol/L Glucose (74-99) mg/dL Calcium (8.4-10.2) mg/dL 05/27/22 Range/Units 05:53 RBC (4.30-5.90) m/uL Hgb (13.0-17.5) gm/dL Hct (39.0-53.0) % Sodium 134 L (137-145) mmol/L Glucose 108 H (74-99) mg/dL Calcium 8.0 L (8.4-10.2) mg/dL Assessment and Plan Assessment: 1. Acute GI bleed - Patient admitted with hemoglobin of 4.6; received 4 units of packed RBCs with hemoglobin stabilizing at 8.5 - Coumadin has been placed on hold; continue to monitor H&H closely with plans for transfusion if hemoglobin is less than 7.0 - Continue with IV Protonix - Patient has been placed on a clear liquid diet with plans to advance as tolerated - Gen. surgery on board with plan for endoscopy once patient is stable 2. Acute blood loss anemia; related to GI bleed; H&H is being monitored closely; patient has received; hemoglobin stable at 8.5 this morning 3. Coagulopathy related to Coumadin toxicity; INR at 7.2 at time of admission which was reversed with Kcentra and vitamin K and was down to 1.3; monitor PT/INR 4. Hypertension; amlodipine 10 mg daily; Coreg 25 mg twice a day and lisinopril 40 mg daily 5. Hyperlipidemia; Lipitor 40 mg by mouth daily at bedtime 6. Diabetes mellitus controlled with insulin; monitor Accu-Cheks before meals and at bedtime with insulin sliding scale 7. Paroxysmal atrial fibrillation; currently in normal sinus rhythm 8. CAD/CHF related to nonischemic cardiomyopathy; patient has an EF of 25%; patient does have history of previous PCI to LAD - AICD placement with episodes of previous ventricular tachycardia 9. Left ventricular thrombus; patient has been maintained on oral anticoagulation with Coumadin; Coumadin remains on hold DVT prophylaxis; SCDs only, given GI bleed CODE STATUS; full code
[2022-05-28 10:50] VITALS: BP 108/83; PULSE 64; RESP 16; TEMP 97.9
[2022-05-28] MEDS: amLODIPine 10 MG TAB PO SCH (11:01)
[2022-05-28] MEDS: lisinopriL 20 MG TAB PO SCH (11:01)
[2022-05-28] MEDS: ATORVASTATIN 40 MG TAB PO SCH (11:02)
[2022-05-28] MEDS: PANTOPRAZOLE 40 MG/10 ML VIAL IVP SCH (11:02)
[2022-05-28] MEDS: carvediloL 12.5 MG TAB PO SCH (11:02)
[2022-05-28] MEDS: HYDROcodone/APAP 10-325MG 1 EACH TAB PO SCH (11:05)
--- NOTE | 2022-05-28 11:34 | P.PN ---
Subjective Progress Note Date: 05/28/22 Principal diagnosis: GI bleed Patient doing well today. Denies abdominal pain. He is tolerating his diet. Plans are for possible discharge. INR is normal at 1.0 Objective - Vital Signs Vital signs: Vital Signs Temp 97.9 F 05/28/22 08:00 Pulse 64 05/28/22 08:00 Resp 16 05/28/22 08:00 BP 108/83 05/28/22 08:00 Pulse Ox 100 05/28/22 08:00 FiO2 Intake & Output 05/27/22 05/28/22 05/28/22 18:59 06:59 18:59 Intake Total 750 250 Output Total 410 325 100 Balance 340 -75 -100 Weight 93.6 kg Intake: Oral 750 250 Output: Urine 410 325 100 Other: Voiding Method Toilet Toilet Urinal Urinal # Voids 0 - Exam Abdomen: Soft, nontender, nondistended - Labs CBC & Chem 7: 05/28/22 04:44 05/28/22 04:44 Labs: Abnormal Lab Results - Last 24 Hours (Table) 05/27/22 05/28/22 05/28/22 Range/Units 20:19 04:44 04:44 RBC 2.79 L (4.30-5.90) m/uL Hgb 8.1 L (13.0-17.5) gm/dL Hct 24.9 L (39.0-53.0) % RDW 15.9 H (11.5-15.5) % Sodium 134 L (137-145) mmol/L Glucose 112 H (74-99) mg/dL POC Glucose (mg/dL) 167 H (70-110) mg/dL Calcium 8.0 L (8.4-10.2) mg/dL 05/28/22 Range/Units 06:32 RBC (4.30-5.90) m/uL Hgb (13.0-17.5) gm/dL Hct (39.0-53.0) % RDW (11.5-15.5) % Sodium (137-145) mmol/L Glucose (74-99) mg/dL POC Glucose (mg/dL) 147 H (70-110) mg/dL Calcium (8.4-10.2) mg/dL Assessment and Plan (1) GI bleed Narrative/Plan: Patient doing well today. Apparently they would like to discharge the patient today. Agree with discharge with plans for outpatient follow-up with Dr. Goyal to review whether the patient is due for upper and lower endoscopy. Certainly recent bleeding exacerbated by Coumadin toxicity. Current Visit: Yes Status: Acute Code(s): K92.2 - GASTROINTESTINAL HEMORR NORMA, UNSPECIFIED SNOMED Code(s): 09468835
[2022-05-28 11:50] LABS: Glucose,Whole Blood 126 mg/dL (70-110)
--- NOTE | 2022-05-28 12:42 | P.PN ---
Subjective Progress Note Date: 05/28/22 56 year old male presented to the emergency department because of a ongoing GI bleed. The patient claimed that he was having bright red blood per rectum for the past few days and the patient is known to have been treated with anticoagulation with warfarin regarding chronic cardiac issues which includes history of a cardiac thrombus and cardiomyopathy. The patient came into the emergency department the patient was found to be toxic on his Coumadin level and his INR was at 7.2 with a PT of 73. Hemoglobin was at 4.8 and a platelet count of 407. Renal function was stable. Sodium level is at 134. Lactic acid level was at 9.3. Troponin was negative and his liver function tests were essentially within normal limits. At that point, the patient was given Kcentra and he was also given vitamin K. He is receiving also IV Protonix. He was ordered packed RBC transfusion a total of 4 and the patient is currently receiving his second unit. The patient is known to me. I took care of him back in January 2022 when he came into the hospital because of an acute on top of chronic CHF. As the patient is being resuscitated, he is less tachycardic at this point in time. His blood pressures improved and his most recent blood pressure is 120/87 and his resting comfortably in bed. I was told by the nursing that he did not have any further episodes of bleeding here in the emergency department. The patient is looking into getting transferred to the ICU. He has history of coronary artery disease status post PCI mid LAD 8-10 years ago in [place], ischemic cardiomyopathy status post AICD, history of ventricular tachycardia, LV thrombus maintained on Coumadin, CVA, hypertension, dyslipidemia, diabetes mellitus and nicotine dependence. He previously had cardiomyopathy with improved EF and . Cardiac catheterization was done in October 2021 and the patient was found to have normal coronary arteries as described above, JONE 2 flow noted in all coronary arteries which may be indicative of microvascular dysfunction, Elevated left sided filling pressures, Nonischemic cardiomyopathy with EF 25% with predominantly global hypokinesis however mild sparing of the bases which may be seen with Takotsubo's cardiomyopathy.The patient is a chronic smoker and continues smoker 1 pack of cigarettes a day. on 05/26/2022, patient is being seen for a follow-up. The patient is quite comfortable at this point in time. He did have another bloody bowel movement and this was dark blood probably some residual material that was obtained in his colon. The patient has remained nothing by mouth. The patient is hemodynamically stable. His hemoglobin is stable at 9.1. INR is down to 1.3 and the patient's lactic acid level is also normalized and is down to 0.9. Rezulin electrodes are all stable and the sodium level is at 134 with a potassium level of 4.4. BUN is at 90 with a creatinine of 0.9 and a platelet count is at 188. The patient has no specific complaints. He feels somewhat hungry. Hemodynamically stable. No other significant events otherwise for now. He was taken off anticoagulants. Mother the patient was taking Coumadin for a history of paroxysmal atrial fibrillation and a cardiac thrombus that was not seen on subsequent echocardiograms. 05/27/2022, patient is doing well on no oxygen and the patient is hemodynamically stable. The patient did not have any further episodes of GI bleeding. Hemoglobin currently is at 8.5 and the rest of the electrodes are all stable. The BNP Neeta the creatinine of 0.7. Note that the patient was also taken off anticoagulants. He was on Coumadin earlier. No other new complaints otherwise for now. He was restarted back on Coreg and lisinopril as long as his blood pressure is able to handle. He remains on Protonix 40 mg IV e very 12 hours. No other significant issues otherwise for now. 05/28/2022, patient is stable without any evidence of GI bleeding in hemoglobin is at 8.1. No new complaints. Cardiac rhythm is sinus. Tolerating diet. No nausea vomiting or abdominal pain. No hemodynamic instability. Patient is on Coreg and lisinopril regarding his cardiomyopathy. The white cell count is 6.4. BNP isn't elevated creatinine of 0.8. Objective - Vital Signs Vital signs: Vital Signs Temp 97.9 F 05/28/22 08:00 Pulse 64 05/28/22 08:00 Resp 16 05/28/22 08:00 BP 108/83 05/28/22 08:00 Pulse Ox 100 05/28/22 08:00 FiO2 Intake & Output 05/27/22 05/28/22 05/28/22 18:59 06:59 18:59 Intake Total 750 250 Output Total 410 325 100 Balance 340 -75 -100 Weight 93.6 kg Intake: Oral 750 250 Output: Urine 410 325 100 Other: Voiding Method Toilet Toilet Toilet Urinal Urinal Urinal # Voids 0 - Exam The patient appeared well nourished and normally developed. Vital signs as documented. Head exam is unremarkable. No scleral icterus or corneal arcus noted. Neck is without jugular venous distension, thyromegaly, or carotid bruits. Carotid upstrokes are brisk bilaterally. Lungs are clear to auscultation and percussion. Cardiac exam reveals the PMI to be normally sized and situated. Rhythm is regular. First and second heart sounds normal. No murmurs, rubs or gallops. Abdominal exam reveals normal bowel sounds, no masses, no organomegaly and no aortic enlargement. Extremities are nonedematous and both femoral and pedal pulses are normal.Examination of the skin revealed no evidence of significant rashes, suspicious appearing nevi or other concerning lesions.Neurologically, the patient is awake and alert and the patient does not have any focal neurological deficit. Cranial nerves are essentially intact. - Labs CBC & Chem 7: 05/28/22 04:44 05/28/22 04:44 Labs: Abnormal Lab Results - Last 24 Hours (Table) 05/27/22 05/28/22 05/28/22 Range/Units 20:19 04:44 04:44 RBC 2.79 L (4.30-5.90) m/uL Hgb 8.1 L (13.0-17.5) gm/dL Hct 24.9 L (39.0-53.0) % RDW 15.9 H (11.5-15.5) % Sodium 134 L (137-145) mmol/L Glucose 112 H (74-99) mg/dL POC Glucose (mg/dL) 167 H (70-110) mg/dL Calcium 8.0 L (8.4-10.2) mg/dL 05/28/22 05/28/22 Range/Units 06:32 11:48 RBC (4.30-5.90) m/uL Hgb (13.0-17.5) gm/dL Hct (39.0-53.0) % RDW (11.5-15.5) % Sodium (137-145) mmol/L Glucose (74-99) mg/dL POC Glucose (mg/dL) 147 H 126 H (70-110) mg/dL Calcium (8.4-10.2) mg/dL Assessment and Plan Plan: Acute GI bleed inactive in stable Acute on chronic anemia. The hemoglobin stable acute lactic acidosis, recovered Coagulopathy and Coumadin toxicity with an INR of 7.2, reversed Generalized weakness and shortness of breath secondary to acute anemia Previous history of GI bleed Chronic systolic heart failure, nonischemic in nature with an ejection fraction of 25% and global hypokinesis Coronary artery disease with previous PCI to LAD and the patient's most recent cardiac catheterization shown patent coronaries LV thrombus along with previous history of paroxysmal atrial fibrillation and the patient limited on anticoagulation with warfarin Paroxysmal atrial fibrillation current rhythm is sinus Hypertension Hyperlipidemia Diabetes mellitus maintained on insulin History of smoking AICD placement with episodes of previous ventricular tachycardia, cardiac rhythm is sinus and cold no ventricular arrhythmias of been noted Paroxysmal atrial fibrillation current rhythm is sinus Plan Stable hemoglobin No anticoagulants Cardiac rhythm is sinus Previous echocardiogram that revealed no evidence of any cardiac thrombus General surgery consultation regarding GI bleeding. Possible endoscopies in later stage including EGD and colonoscopy Advance diet as tolerated Hemodynamically stable May transfer out of the intensive care and even get discharged if this is okay with the primary care team. Skull scan was also done on an outpatient basis.
== END 2022-05-28 14:57 | disposition home or self-care (01) | DRG 813 ==
LOC: EC 09:00 → 2SICU 11:35
PROVIDERS: ADMIT Family Medicine; ATTEND Family Medicine
PROC: 30233N1 Transfusion of Nonautologous Red Blood Cells into Peripheral Vein, Percutaneous Approach (ICD-10-PCS; principal; 2022-05-25)
PROC: 30283B1 Transfusion of Nonautologous 4-Factor Prothrombin Complex Concentrate into Vein, Percutaneous Approach (ICD-10-PCS; principal; 2022-05-25)
DX: D68.32 Hemorrhagic disorder due to extrinsic circulating anticoagulants (principal); J96.01 Acute respiratory failure with hypoxia; K92.2 Gastrointestinal hemorrhage, unspecified; D62 Acute posthemorrhagic anemia; I42.8 Other cardiomyopathies; J44.1 Chronic obstructive pulmonary disease with (acute) exacerbation; I50.22 Chronic systolic (congestive) heart failure; E87.2 Acidosis; T45.515A Adverse effect of anticoagulants, initial encounter; D68.9 Coagulation defect, unspecified; M06.9 Rheumatoid arthritis, unspecified; I48.0 Paroxysmal atrial fibrillation; I25.5 Ischemic cardiomyopathy; I25.10 Atherosclerotic heart disease of native coronary artery without angina pectoris; I11.0 Hypertensive heart disease with heart failure; F17.210 Nicotine dependence, cigarettes, uncomplicated; E78.5 Hyperlipidemia, unspecified; E11.9 Type 2 diabetes mellitus without complications; I51.3 Intracardiac thrombosis, not elsewhere classified; M79.604 Pain in right leg; G47.30 Sleep apnea, unspecified; M54.50 Low back pain, unspecified; M19.90 Unspecified osteoarthritis, unspecified site; Z71.3 Dietary counseling and surveillance; Z95.810 Presence of automatic (implantable) cardiac defibrillator; Z95.5 Presence of coronary angioplasty implant and graft; Z86.010 Personal history of colon polyps; Z86.73 Personal history of transient ischemic attack (TIA), and cerebral infarction without residual deficits; Z79.899 Other long term (current) drug therapy; Z79.82 Long term (current) use of aspirin; Z79.4 Long term (current) use of insulin; Z79.01 Long term (current) use of anticoagulants
CPT/HCPCS: 36415; 80048; 80053; 83036; 83605; 83735; 84484; 85025; 85027; 85610; 85730; 86850; 86900; 86901; 86920; 93005; 96365; 96375; 99291

== ENCOUNTER 2022-06-22 06:48 | Day surgery (SDC) | payer OTHER ==
[2022-06-21 13:20] VITALS: BMI 34.2
[~2022-06-22 06:48] MED LIST changes: -IV FLUID CONTINUATION 1,000 ML IV ONE; -MIDAZOLAM 2 MG/2 ML VIAL ONE; -fentaNYL (PF) 50 MCG/ML 2 ML AMP ONE
[2022-06-22] MEDS ORDERED: LACTATED RINGERS 1,000 ML IV ONE (07:29)
[2022-06-22 07:36] VITALS: TEMP 97.6
[2022-06-22 07:40] LABS: Glucose,Whole Blood 117 mg/dL (70-110)
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
[2022-06-22] MEDS ORDERED: MIDAZOLAM 2 MG/2 ML VIAL ONE (08:11)
[2022-06-22] MEDS ORDERED: PROPOFOL 10 MG/ML 20 ML VIAL IV ONE (08:11)
[2022-06-22] MEDS ORDERED: LIDOCAINE 2% INJ 20 MG/ML (2 ML VIAL) ONE (08:11)
--- NOTE | 2022-06-22 08:42 | P.OP ---
Date of Procedure: 06/22/22 Preoperative Diagnosis: GI bleed Anemia Postoperative Diagnosis: Antral gastritis Right colon polyp, transverse colon polyp, rectal polyp, internal and external hemorrhoids Procedure(s) Performed: Colonoscopy EGD Anesthesia: MAC Surgeon: Morris Goyal Pathology: other (The antrum, colon polyps) Condition: stable Disposition: PACU Description of Procedure: The patient's placed on the endoscopy table in the lateral position. He received IV sedation. The gastroscope placed oropharynx passed in the esophagus and stomach. Scope was placed through the pylorus. The first and second portion of duodenum appeared normal. Scope was brought back the antrum and there was mild inflammation of the antrum. This area is biopsied cold forcep. The scope was unretroflexed and remainder the stomach appeared normal. The GE junction was at 40 cm. The distal esophagus appeared normal. The proximal esophagus appeared normal. Scope withdrawn for patient. Next digital rectal exam was performed. This revealed external and internal hemorrhoids. The flexible colonoscope was then placed patient anus and passed throughout the entire colon. Ileocecal valve visualized. In the cyst right colon there was a small pocket polyp. This was removed with the snare. During the removal the polyp was drop. Several times made to find the polyp however it was quite small and could not be seen. At this point scope withdrawn. The transverse colon another polyp with the snare. Scope brought back and the remaining transverse and descending colon and sigmoid colon appeared normal. In the rectum there is another polyp seen this removed with the snare. The scope was then retroflexed and internal initial hemorrhoids were seen. The scope was withdrawn for patient. Presumed patient may have bleeding from hemorrhoids or colon polyps.
[2022-06-22 09:00] VITALS: RESP 16
[2022-06-22 09:17] VITALS: BP 128/93; PULSE 77
== END 2022-06-22 09:48 | disposition home or self-care (01) ==
LOC: ORWHC2ENDO 06:48
PROVIDERS: ATTEND Surgery
DX: D12.3 Benign neoplasm of transverse colon (principal); D12.8 Benign neoplasm of rectum; K29.50 Unspecified chronic gastritis without bleeding; K64.1 Second degree hemorrhoids; I25.10 Atherosclerotic heart disease of native coronary artery without angina pectoris; I11.0 Hypertensive heart disease with heart failure; I50.9 Heart failure, unspecified; I48.91 Unspecified atrial fibrillation; E78.5 Hyperlipidemia, unspecified; G47.33 Obstructive sleep apnea (adult) (pediatric); M06.9 Rheumatoid arthritis, unspecified; I63.9 Cerebral infarction, unspecified; G40.909 Epilepsy, unspecified, not intractable, without status epilepticus; F17.210 Nicotine dependence, cigarettes, uncomplicated; Z84.89 Family history of other specified conditions; Z79.891 Long term (current) use of opiate analgesic; Z79.02 Long term (current) use of antithrombotics/antiplatelets; Z79.01 Long term (current) use of anticoagulants; Z79.51 Long term (current) use of inhaled steroids; Z79.899 Other long term (current) drug therapy; Z95.5 Presence of coronary angioplasty implant and graft; Z79.4 Long term (current) use of insulin; Z79.2 Long term (current) use of antibiotics
CPT/HCPCS: 45385; 43239; J2250; J2704; J2001; 88305; 88342

== ENCOUNTER → 2024-12-19 | Outpatient (CLI) | payer OTHER ==
--- NOTE | 2024-12-19 15:25 | BD ---
EXAMINATION TYPE: Axial Bone Density DATE OF EXAM: 12/19/2024 CLINICAL HISTORY: 59 years old Male. ICD-10 CODE: R74.8 ABNORMAL LEVELS OF OTHER SERUM ENZYMES , Add itional History: Height: 65.5 Weight: 179 FRAX RISK QUESTIONS: Family History (Parent hip fracture): no History of Fracture in Adulthood: no Secondary Osteoporosis: no Rheumatoid Arthritis: yes Current Tobacco Use: yes RISK FACTORS HISTORY OF: Surgery to Spine/Hip(right/left)/Wrist (right/left): no MEDICATIONS: Thyroid Medications: no Osteoporosis Medications: no EXAM MEASUREMENTS: Bone mineral densitometry was performed using the [employer] System. Bone mineral density as measured about the Lumbar spine is: ----- L1-L4(G/cm2): 1.272 T Score Values are as follows: ----- L1: -0.2 ----- L2: 0.7 ----- L3: 1.3 ----- L4: 0.9 ----- L1-L4: 0.8 Z Score Values are as follows: ----- L1: -0.9 ----- L2: -0.1 ----- L3: 0.5 ----- L4: 0.1 ----- L1-L4: 0.0 Bone mineral density baseline Bone mineral density about the R hip (g/cm2): 1.131 Bone mineral density about the L hip (g/cm2): 1.189 T Score values are as follows: -----R Neck: 0.6 -----L Neck: 1.4 -----R Total: 1.0 -----L Total: 1.4 Z Score values are as follows: -----R Neck: 0.2 -----L Neck: 1.1 -----R Total: -0.3 -----L Total: 0.1 Bone mineral density baseline FRAX%s: The graph provided illustrates a 2.1% chance for a major osteoporotic fx and a 0.1% chance fo r the hips probability for fx in 10 years time. IMPRESSION: Normal (Values between +1 and -1 indicate normal bone mass). Consider repeating this study in 5 year s or sooner if there is some new clinical indication. NOTE: T-SCORE=SD OF THE YOUNG ADULT MEAN. [facility], , 12/19/2024 3:22 PM
== END | disposition home or self-care (01) ==
LOC: RADBDWWP 13:22
PROVIDERS: ATTEND Family Medicine
DX: R74.8 Abnormal levels of other serum enzymes (principal)
CPT/HCPCS: 77080